=== PATIENT | male | born 1945 | race Caucasian/White ===

== ENCOUNTER → 2017-05-01 | Outpatient (CLI) | payer OTHER ==
[2017-05-01 14:48] LABS: HEMATOCRIT 45.2 % (42-52); MEAN CELL VOLUME 93.8 fL (80-100); MEAN CORPUSCULAR HEMOGLOBIN 31.3 pg (25-34); MEAN CORPUSCULAR HGB CONC 33.4 g/dl (32-36); MEAN PLATELET VOLUME 9.6 fL (7.4-10.4); PLATELET COUNT 223 K/uL (130-400); RED BLOOD COUNT 4.82 M/uL (4.7-6.1); WHITE BLOOD COUNT 12.42 K/uL (4.8-10.8)
[2017-05-01 15:13] LABS: ALT/SGPT 22 U/L (12-78); BLOOD UREA NITROGEN 26 mg/dl (7-18); BUN/CREATININE RATIO 18.3 (10-20); CALCIUM 10.9 mg/dl (8.5-10.1); CARBON DIOXIDE 28 mmol/L (21-32); CHLORIDE 109 mmol/L (98-107); GLUCOSE 146 mg/dl (70-99); POTASSIUM 4.2 mmol/L (3.5-5.1); SODIUM 141 mmol/L (136-145)
[2017-05-01 15:16] LABS: ALB/GLOB RATIO 1.3 (0.9-2); ALKALINE PHOSPHATASE 40 U/L (45-117); AST/SGOT 11 U/L (15-37)
== END | disposition home or self-care (01) ==
LOC: C.LAB 14:20
PROVIDERS: ATTEND Nurse Practitioner
DX: R42 Dizziness and giddiness (principal); I10 Essential (primary) hypertension; E21.3 Hyperparathyroidism, unspecified

== ENCOUNTER → 2017-10-20 | Outpatient (CLI) | payer OTHER, BC ==
--- NOTE | 2017-10-20 09:59 | DIAGNOSTIC IMAGING REPORT ---
R WRIST MIN 3 VIEWS ROUTINE CLINICAL HISTORY: PAIN IN R WRIST pain COMPARISON: None. DISCUSSION: The bones and joint spaces appear intact. There is no evidence of fracture, dislocation or bony disease. There is no evidence for soft tissue swelling. IMPRESSION: Negative study. The above report was generated using voice recognition software. It may contain grammatical, syntax or spelling errors. Electronically signed by: Fredy Bolanos M.D. 10/20/2017 9:57 AM Dictated Date/Time: 10/20/2017 9:57 AM
== END | disposition home or self-care (01) ==
LOC: C.RAD1850 09:49
PROVIDERS: ATTEND Student in an Organized Health Care Education/Training Program
DX: M25.531 Pain in right wrist (principal)

== ENCOUNTER → 2018-01-17 | Outpatient (CLI) | payer OTHER | END | disposition home or self-care (01) | LOC: C.MAMM 12:38 | PROVIDERS: ATTEND Family Medicine | DX: M85.80 Other specified disorders of bone density and structure, unspecified site (principal) ==

== ENCOUNTER 2020-06-06 05:26 | Inpatient (IN) ==
--- NOTE | 2020-05-20 13:25 | PAT Medication Instructions ---
Medication Instructions Date of Service May 20, 2020 Home Medications atorvastatin 20 mg tablet 20 mg PO QAM cholecalciferol (vitamin D3) 50 mcg (2,000 unit) capsule 4,000 units PO QAM lisinopril 40 mg tablet 40 mg PO QPM omega-3 fatty acids 1,000 mg capsule 1,000 mg PO BID tamsulosin 0.4 mg capsule 0.8 mg PO QPM amlodipine 5 mg tablet 5 mg PO QPM calcium 500 mg tablet 500 mg PO QAM metformin 500 mg tablet 1,000 mg PO BID glucosamine rnc-ohjqxmrazi-nwz 1 tab PO BID dutasteride 0.5 mg PO QPM STOP taking 2 weeks before surgery glucosamine vre-ythwckcymx-oyd 1 tab PO BID omega-3 fatty acids 1,000 mg capsule 1,000 mg PO BID DO NOT take the morning of surgery metformin 500 mg tablet 1,000 mg PO BID calcium 500 mg tablet 500 mg PO QAM cholecalciferol (vitamin D3) 50 mcg (2,000 unit) capsule 4,000 units PO QAM Take morning of surgery With a small sip of water, OTHERWISE NOTHING TO EAT OR DRINK AFTER MIDNIGHT: atorvastatin 20 mg tablet 20 mg PO QAM Take evening before surgery lisinopril 40 mg tablet 40 mg PO QPM tamsulosin 0.4 mg capsule 0.8 mg PO QPM amlodipine 5 mg tablet 5 mg PO QPM metformin 500 mg tablet 1,000 mg PO BID dutasteride 0.5 mg PO QPM Other Notes If you have any questions please call us at [phone] or [phone] or [phone] or [phone]
--- NOTE | 2020-05-22 09:38 | Anesthesiology Consultation ---
Date of Service May 22, 2020 Assessment & Plan (1) Encounter for pre-operative examination: Chart Review Chart Review: Pending: Refer to Additional Notes / Consult section (response from PCP re: any other EKGs for comparison and preop Covid testing ) and Patient seen in Pre Admission Testing Note wrote to PCP re: EKG and if any other EKGs available for comparison. Will await response - Check BSG AM DOS Per PAT appt 05/22/20, denies any recent travel. Covid testing scheduled 06/03/20. Educated on importance of self quarantining, social distancing and wearing mask in public both for the patient and household contacts. Teaching & Discussion Pre-Anesthesia Teaching/Discussion Notes: Instructed NPO after midnight before surgery,except medications with 15 cc of water. Medication instructions provided according to the [facility] guidelines. History Surgery Operation Date: 06/06/20 07:30 Proposed Procedures p Right Robotic Assisted Partial Nephrectomy - Wu Cantrell MD Height/Weight Height: 5 ft 8 in Weight: 75.75 kg Allergies Allergy/AdvReac Type Severity Reaction Status Date / Time No Known Drug Allergies Allergy Verified 05/15/20 13:51 Medications Home Medications Medication Instructions Recorded Confirmed Last Taken atorvastatin 20 mg tablet 20 mg PO QAM 12/11/19 05/15/20 Unknown cholecalciferol (vitamin D3) 50 4,000 units PO QAM cap 12/11/19 05/15/20 Unknown mcg (2,000 unit) capsule lisinopril 40 mg tablet 40 mg PO QPM 12/11/19 05/15/20 Unknown omega-3 fatty acids 1,000 mg 1,000 mg PO BID 12/11/19 05/15/20 Unknown capsule tamsulosin 0.4 mg capsule 0.8 mg PO QPM cap 12/11/19 05/15/20 Unknown amlodipine 5 mg tablet 5 mg PO QPM 12/27/19 05/15/20 Unknown calcium 500 mg tablet 500 mg PO QAM tab 12/27/19 05/15/20 Unknown metformin 500 mg tablet 1,000 mg PO BID tab 12/27/19 05/15/20 Unknown glucosamine kur-dpzcumonmv-bhr 1 tab PO BID 01/09/20 05/15/20 Unknown dutasteride 0.5 mg PO QPM 05/15/20 05/15/20 Unknown Past Medical History Medical History (Updated 05/22/20 @ 10:06 by Kirsten Ascencio PA-C) BPH with obstruction/lower urinary tract symptoms DM type 2 (diabetes mellitus, type 2) NIDDM- well controlled and stable Hearing deficit BL [place]- wears hearing aids bilaterally History of skin cancer removed - follows with derm routinely HTN (hypertension) Hyperlipemia Reducible left inguinal hernia Renal mass Exercise / Class Metabolic Activity II 4-5 Yardwork/Stairs/Walk up hill (one flight of stairs - no chest pain or SOB) Past Family History Family History Son Schizophrenia Sister Cancer Mother Heart disease Other No family history of adverse response to anesthesia Past Surgical History Surgical History History of colonoscopy History of prostate biopsy History of testicular mass excision History of tonsillectomy and adenoidectomy History of vasectomy Status post biopsy of skin Past Anesthesia History No Hx of Anesthesia Complications and No Family Hx of Anesthesia Complications History of PONV No Hx of PONV and No Hx of Motion Sickness Social History Smoking Status: Never smoker Do You Dip or Chew Tobacco: No Hx Alcohol Use: Yes Alcohol type: wine alcohol intake frequency: a few times a week Hx Substance Use: No substance use type: does not use Review of Systems Patient denies chest pain, shortness of breath, dyspnea on exertion, reflux, cough, wheezing, palpitations. No hx of seizures, stroke, [place], apnea/snoring. No hx of blood clots or blood transfusions Physical Exam Vital Signs VITALS BP 127/61 P 82 TEMP 97.8 SP02 96% RESP 16 Constitutional no acute distress ENMT Mouth: no TMJ clicking Thyromental Distance: > or= 3.5 Finger Breadths (3.5) Mallampati Class: I Missing molars. Caps and crowns to molars Neck + limited neck extension (mild ) Respiratory normal respiratory effort; no respiratory distress Auscultation: lungs clear to auscultation bilaterally; no wheezes Cardiovascular Rate/Rhythm: regular rate and regular rhythm Heart Sounds: no murmur Vessels: no carotid bruit Musculoskeletal Spine: no pain with cervical ROM Neurologic moves all extremities Psychiatric Orientation: alert Testing Laboratory Results 05/22/20 10:00 05/22/20 10:00 Hemoglobin A1c 6.0 % (4.5-5.6) H 05/22/20 10:00 Urine Color Yellow 05/22/20 10:00 Urine Appearance Clear (Clear) 05/22/20 10:00 Urine pH 5.0 (4.5-7.5) 05/22/20 10:00 Ur Specific Coello 1.019 (1.000-1.030) 05/22/20 10:00 Urine Protein Trace (Negative) H 05/22/20 10:00 Urine Glucose (UA) Negative (Negative) 05/22/20 10:00 Urine Ketones Negative (Negative) 05/22/20 10:00 Urine Nitrite Negative (Negative) 05/22/20 10:00 Ur Leukocyte Esterase Negative (Negative) 05/22/20 10:00 Urine WBC (Auto) 1-5 /hpf (0-5) 05/22/20 10:00 Urine RBC (Auto) 0-4 /hpf (0-4) 05/22/20 10:00 U Hyaline Cast (Auto) 0 /lpf (0-5) 05/22/20 10:00 U Epithel Cells (Auto) 0-5 /lpf (0-5) 05/22/20 10:00 Urine Bacteria (Auto) Negative (Negative) 05/22/20 10:00 Blood Type A Positive 05/22/20 10:00 Antibody Screen NEGATIVE 05/22/20 10:00 Electrocardiogram Date: 05/22/20 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 Poor R wave progression, consider anterior [place] vs lead placement vs LVH Chest X-Ray Date: 05/22/20 Findings: + NAD Ill-defined opacity of the right paratracheal distribution is likely secondary to summation density or vascular pedicle. Mild blunting of the posterior costophrenic angles.
--- NOTE | 2020-05-22 10:22 | XRay Report ---
XR chest Pre-admission PA/Lat HISTORY: 74 years-old Male pat preoperative exam COMPARISON: None TECHNIQUE: PA and lateral views of the chest FINDINGS: Cardiac silhouette is normal. Ill-defined opacity of the right paratracheal distribution is likely se condary to summation density or vascular pedicle. No pneumothorax, pleural effusion, airspace consoli dation or overt pulmonary edema. Mild blunting of the posterior costophrenic angles. Degenerative zhane nges of the shoulders and spine. IMPRESSION: No acute process. ACT 112: Negative or not required by law. The above report was generated using voice recognition software. It may contain grammatical, syntax o r spelling errors. Electronically signed by: Filemon Yi M.D. 05/22/2020 10:21 AM
[2020-05-22 10:53] LABS: Basophils # (auto) 0.03 K/uL (0-0.2); Basophils % (auto) 0.3 %; Eosinophils % (auto) 3.4 %; Hematocrit (blood only) 41.1 % (42-52); Hemoglobin 13.8 g/dL (14.0-18.0); Immature Granulocytes # (auto) 0.02 K/uL (0.00-0.02); Immature Granulocytes % (auto) 0.2 %; Lymphocytes # (auto) 1.47 K/uL (1.2-3.4); Lymphocytes % (auto) 16.5 %; Mean Corpuscular Hemoglobin 31.8 pg (25-34); Mean Corpuscular Hgb Conc 33.6 g/dL (32-36); Mean Corpuscular Volume 94.7 fL (80-100); Mean Platelet Volume 9.9 fL (7.4-10.4); Monocytes # (auto) 0.82 K/uL (0.11-0.59); Monocytes % (auto) 9.2 %; Neutrophils # (auto) 6.29 K/uL (1.4-6.5); Neutrophils % (auto) 70.4 %; Platelet Count 238 K/uL (130-400); RDW Coefficient of Variation 12.8 % (11.5-14.5); RDW Standard Deviation 44.4 fL (36.4-46.3); Red Blood Count 4.34 M/uL (4.7-6.1); White Blood Count 8.93 K/uL (4.8-10.8)
[2020-05-22 10:59] LABS: BUN Creatinine Ratio 18.1 (10-20); Calcium 10.3 mg/dl (8.5-10.1); Creatinine Clr Calc Pharmacy 45.7 ml/min; Est GFR (African American) 59.1; Potassium 4.6 mmol/L (3.5-5.1)
[2020-05-22 11:13] LABS: Appearance Urine Clear (Clear); Bacteria Urine Automated Negative (Negative); Bilirubin Urine Negative (Negative); Blood Urine Negative (Negative); Cast Urine Automated 0 /lpf (0-5); Color Urine Yellow; Epithelial Cell Urine Auto 0-5 /lpf (0-5); Glucose Urine UA Negative (Negative); Ketones Urine Negative (Negative); Leukocyte Esterase Urine Negative (Negative); Nitrite Urine Negative (Negative); Protein Urine Trace (Negative); RBC Urine Automated 0-4 /hpf (0-4); Specific Gravity Urine 1.019 (1.000-1.030); Urobilinogen Urine Negative (Negative)
--- NOTE | 2020-05-22 11:56 | Electrocardiogram Report ---
Test Reason : Blood Pressure : / mmHG Vent. Rate : 080 BPM Atrial Rate : 080 BPM P-R Int : 212 ms QRS Dur : 106 ms QT Int : 364 ms P-R-T Axes : 078 -81 077 degrees QTc Int : 419 ms Sinus rhythm with 1st degree A-V block Left anterior fascicular block Poor R wave progression, consider anterior CA vs. lead placement vs. LVH Abnormal ECG No previous ECGs available Confirmed by Jan Young ([id number]) on 05/22/2020 11:56:25 AM Referred By: Wu Cantrell Confirmed By:Andrey Young
[2020-05-22 12:56] LABS: Estimated Average Glucose 126 mg/dl
[2020-06-06] MEDS ORDERED: CEFAZOLIN 2000MG 2,000 MG/15 ML SYR IV SCH (06:00)
[2020-06-06] MEDS ORDERED: LR 15ML/HR IV SCH (06:00)
[2020-06-06] MEDS ORDERED: BUPIVACAINE 0.5 % 5 MG/1 ML MPF 30ML VIAL ONE (07:01)
[2020-06-06] MEDS ORDERED: ATROPINE SULFATE 0.1 MG/ML 10ML SYR IV PRN (07:05)
[2020-06-06] MEDS ORDERED: PROMETHAZINE HCL 12.5 MG in SODIUM CHLORIDE 0.9% 50 ML IV PRN (07:05)
[2020-06-06] MEDS ORDERED: ONDANSETRON INJ 2 MG/ML 2 ML VIAL IV PRN ×2 (07:05→13:57)
[2020-06-06] MEDS ORDERED: ePHEDrine sulfate 50 MG/ML AMP IV PRN (07:05)
[2020-06-06] MEDS ORDERED: ROCURONIUM BROMIDE 10 MG/ML 5 ML VIAL IV ONE ×6 (07:09→09:23)
[2020-06-06] MEDS ORDERED: LIDOCAINE HCL 2% 2 ML VIAL/AMP(20MG/ML) INFIL ONE (07:09)
[2020-06-06] MEDS ORDERED: ONDANSETRON INJ 2 MG/ML 2 ML VIAL ONE (07:09)
[2020-06-06] MEDS ORDERED: PROPOFOL IV EMULSION 10 MG/ML 20 ML VIAL IV ONE (07:09)
[2020-06-06] MEDS ORDERED: MIDAZOLAM HCL 1 MG/ML 2ML VIAL ONE (07:09)
[2020-06-06] MEDS ORDERED: fentaNYL citrate 100 MCG/2 ML VIAL ONE (07:09)
--- NOTE | 2020-06-06 07:21 | History & Physical Bridge Note ---
Date of Service June 06, 2020 History & Physical Bridge Note I have examined the patient, reviewed the History & Physical and in the interval since the performance of the History & Physical I have noted the following changes of clinical significance: no changes noted
[2020-06-06] MEDS ORDERED: VASOPRESSIN 20 UNIT/ML VIAL ONE (08:37)
[2020-06-06] MEDS ORDERED: MANNITOL 25% 12.5 GM/50 ML VIAL IV ONE ×2 (09:15→10:34)
[2020-06-06] MEDS ORDERED: TISSEEL FIBRIN SEALANT 10ML TOP ONE (10:07)
[2020-06-06] MEDS ORDERED: FLOSEAL HEMOSTATIC MATRIX 10ML TOP ONE (10:30)
[2020-06-06] MEDS ORDERED: ePHEDrine sulfate 50 MG/ML SYR ONE (11:09)
[2020-06-06] MEDS ORDERED: PHENYLEPHRINE 100MCG/ML 5ML SYR ONE (11:09)
[2020-06-06 11:49] LABS: Basophils # (auto) 0.02 K/uL (0-0.2); Basophils % (auto) 0.2 %; Eosinophils # (auto) 0.02 K/uL (0-0.5); Eosinophils % (auto) 0.2 %; Hematocrit (blood only) 36.2 % (42-52); Hemoglobin 12.2 g/dL (14.0-18.0); Immature Granulocytes # (auto) 0.03 K/uL (0.00-0.02); Immature Granulocytes % (auto) 0.2 %; Lymphocytes # (auto) 1.22 K/uL (1.2-3.4); Lymphocytes % (auto) 9.8 %; Mean Corpuscular Hemoglobin 31.7 pg (25-34); Mean Corpuscular Hgb Conc 33.7 g/dL (32-36); Mean Platelet Volume 9.5 fL (7.4-10.4); Monocytes # (auto) 0.87 K/uL (0.11-0.59); Neutrophils # (auto) 10.23 K/uL (1.4-6.5); Neutrophils % (auto) 82.6 %; Platelet Count 181 K/uL (130-400); RDW Coefficient of Variation 12.6 % (11.5-14.5); RDW Standard Deviation 42.9 fL (36.4-46.3); Red Blood Count 3.85 M/uL (4.7-6.1); White Blood Count 12.39 K/uL (4.8-10.8)
[2020-06-06] MEDS: fentaNYL citrate 100 MCG/2 ML VIAL IV PRN ×2 (11:49→11:57)
--- NOTE | 2020-06-06 11:56 | Operative Report ---
PG Post Operative Report Pre & Post Diagnosis Operation Date: 06/06/20 07:30 Pre-Op Diagnosis: Right Renal Mass Post-Op Diagnosis: Right Renal Mass I identified the patient and participated in the time-out.: Yes Procedure Operation Date: 06/06/20 07:30 Actual Procedures p Right Robotic Assisted Partial Nephrectomy(Right) - Wu Cantrell MD Surgeon Jan Cantrell MD Travel Registered Nurse Nicu Jeremy Noe; Faye Dela Cruz; Janki Layne Estimated Blood Loss 50 Findings Consistent with Post-Op Diagnosis Specimens Right renal masses x2 Description of Procedure Patient was identified in the preoperative holding area, appropriate informed consents were reviewed and completed and he was transported to the operating suite. Upon arrival received appropriate preoperative antibiotics in form of Ancef. He was placed in the left side down right side up lateral decubitus position and padded and braced in standard fashion. Following sterile prep and drape a varies needle was passed into the right upper quadrant and the abdomen insufflated to 15 mmHg. A 12 mm robotic camera port was placed approximately 5 cm lateral to the rectus border just above the umbilicus. Subsequently placed robotic port just under the costal margin and another inferior and lateral to the robotic port by 8 cm. 2- 12 mm fast food sales assistant ports were placed along the lateral border of the rectus. After docking the robot I began by mobilizing the colon. Beginning inferior to the kidney I incised the white line of Toldt and continued to dissect lateral to the colon until reaching the transverse colon. This reflected it medially. I was able to identify the duodenum just posterior to the colon and overlying the renal hilar structures. I kocherized the duodenum moving it medially. I then identified the inferior vena cava inferior to the kidney. The gonadal vein was seen penetrating the cava and I dissected lateral to this to define the lateral edge of the cava. I encountered the renal artery and vein as I dissected cephalad along the course of the cava. I circumferentially dissected around both of these structures to expose them. I then turned my attention to the kidney and in the midportion of the kidney I transected through Gerota's fascia until I could identify a normal renal parenchyma. I carried this dissection circumferentially identifying a cyst on the anterior surface. The cyst is just superior to the anticipated area of the tumor and I use it as a landmark to guide my further dissection. I continued to dissect and identified healthy perimeter of renal parenchyma around the periphery of the tumor. I used an laparoscopic ultrasound to confirm my findings and identify the absolute borders of the tumor both deep and superficial. 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 More care was taken to avoid penetration into the solid mass in the AML. That said, I planned a dissection that would excise both masses simultaneously as they share a common border. I then preplaced 2 sutures into the abdomen and instilled 12.5 g of mannitol. A short bulldog clamp was placed across the renal artery and the time was marked. A second bulldog clamp was placed across the renal vein and I began transecting the kidney and my previously marked plane. I was able to safely dissect the tumors away from the healthy renal parenchyma without encroaching upon the tumor or violating its borders. After this was entirely freed, I began by reconstructing the kidney with a running V lock suture through the deepest portion of my resection. This closed numerous vessels and likely some collecting system. I secured this suture in place with a Weck clip placed on the outside of the renal capsule. Utilizing a sliding clip technique I then closed the external portion of the renal parenchyma. Approximately 4 passes across the defect were required to close the defect entirely. I then unclamped the kidney, first removing the venous clamp and then the arterial clamp. Warm ischemic time was 12 minutes. Hemostasis was excellent. FloSeal was placed across the defect followed by layer of Tisseel. Gerota's fascia was reconstructed utilizing a running V lock stitch. The tumor was collected into an Endo Catch bag. The robot was undocked after placing a drain through the left lateral robotic port. I elected to withdraw the specimen through the camera port after expanding into approximately 3 cm in length. The tumor was withdrawn without difficulty and the fascia was closed in 2 layers. All wounds were infiltrated with half percent Marcaine and closed with 4-0 Monocryl. Drain was sutured in place with a 3-0 silk. Dermabond was placed over the incisions and the case concluded. There were no complications Jeremy Noe assisted throughout the burleson portions of the case and Faye Dela Cruz and Janki Layne assisted from incision to closure. I attest to the content of the Intraoperative Record and any orders documented therein. Any exceptions are noted below.
[2020-06-06] MEDS: HYDROmorphone INJ 2 MG/ML SYR/VIAL IV PRN ×4 (12:05→12:21)
[2020-06-06 12:12] LABS: BUN Creatinine Ratio 14.8 (10-20); Calcium 8.9 mg/dl (8.5-10.1); Creatinine Clr Calc Pharmacy 41.4 ml/min; Est GFR (African American) 52.5; Est GFR (Non-African American) 45.3; Potassium 4.6 mmol/L (3.5-5.1)
--- NOTE | 2020-06-06 12:26 | Anesthesiology Progress Note ---
Date of Service June 06, 2020 Anesthesia Post Procedure Vital Signs Vital Signs: Temp Pulse Pulse Resp BP BP Pulse Ox 06/06/20 12:15 75 12 118/56 L 97 06/06/20 12:05 64 12 117/53 L 94 06/06/20 11:55 71 12 122/61 95 06/06/20 11:45 75 15 118/56 L 95 06/06/20 11:35 81 18 115/65 99 06/06/20 11:29 36.3 C L 89 16 132/60 98 06/06/20 06:05 36.5 C 107 H 18 155/77 H 97 Pain Intensity Abdomen: Pain Intensity: 5 Transfer of Care Handoff Completed per policy Notes Mental Status: alert / awake / arousable and participated in evaluation Patient Amnestic to Procedure: Yes Nausea / Vomiting: adequately controlled Pain: adequately controlled Airway Patency, RR, SpO2: stable & adequate BP & HR: stable & adequate Hydration State: stable & adequate Anesthetic Complications: no major complications apparent and Pt Satisfied with anesthetic care
[2020-06-06] MEDS ORDERED: MoRPHine SULFATE 4 MG/ML 1 ML CARP\\VIAL IV PRN (13:57)
[2020-06-06] MEDS ORDERED: MoRPHine SULFATE 10 MG/ML CARP/VIAL IV PRN (13:57)
[2020-06-06] MEDS ORDERED: PHARMACY GLYCEMIC MGMT CONSULT SCH (14:41)
[2020-06-06] MEDS: ACETAMINOPHEN 1,000 MG/100 ML VIAL IV SCH ×2 (14:48→21:49)
--- NOTE | 2020-06-06 15:00 | Pharmacy Report ---
Pharmacy Glycemic Short Note 2 - Date of Service June 06, 2020 - Glycemic Short BSG Results (Last 24 hours): 06/06/20 06/06/20 06/06/20 05:54 11:32 11:40 Glucose 192 H POC Glucose 125 H 200 H OUTPATIENT ANTIDIABETIC REGIMEN: * Metformin 1gm PO BID * A1c = 6% 05/22/20 ASSESSMENT: * Type 2 diabetic w/ h/o renal mass admitted for robot assisted partial R nephrectomy * Pre-op BSG 125, patient unlikely to be insulin resistant due to underlying renal dz and glycemic targets obtained w/ metformin monotherapy * It does not appear patient received steroids kevin-op. Mannitol was pulled from Omni - perhaps this could interfere with Accucheck result leading to post-op BSG 200 - of course this elevation may also be due to surgical stressors * Will initiate wt based basal/bolus regimen using mild-moderate stress level PLAN FOR INPATIENT GLYCEMIC CONTROL: * Hold outpatient oral diabetes medications (metformin) * Basal insulin * Lantus SQ BID per scale * 0 units if BSG less than 110 * 7 units if BSG 110-180 * 13 units if BSG greater than 180 * Bolus insulin * NovoLog per scale ACHS or Q6hrs while NPO * Goal Range: Low 110 mg/dL - High 140 mg/dL * Correction Factor: 30 mg/dL/unit * Nutritional / Prandial insulin per carb ratio of 1 unit per 10 grams CHO consumed PLAN FOR DISCHARGE: * may resume home metformin regimen if no contraindications present at the time of discharge.
[2020-06-06] MEDS ORDERED: GLUCOSE 40% GEL 15 GM TUBE PO PRN (15:15)
[2020-06-06] MEDS ORDERED: CARBOHYDRATES FOR HYPOGLYCEMIA PO PRN (15:15)
[2020-06-06] MEDS ORDERED: DEXTROSE 50% 50 ML SYRINGE IV PRN (15:15)
[2020-06-06] MEDS ORDERED: GLUCOSE 10 TABS/TUBE PO PRN (15:15)
[2020-06-06] MEDS ORDERED: GLUCAGON FOR INJ 1 MG VIAL IM PRN (15:15)
[2020-06-06] MEDS: DUTASTERIDE: ORDER AWAITING ACTION SCH (16:04)
[2020-06-06] MEDS: CEFAZOLIN 2000MG 2,000 MG/15 ML SYR IV SCH ×2 (16:10→23:27)
[2020-06-06] MEDS: INSULIN ASPART 100 UNITS/ML 3 ML PEN SC SCH ×2 (19:07→21:45)
[2020-06-06] MEDS: LACTATED RINGER'S 1,000 ML IV SCH (19:17)
[2020-06-06] MEDS ORDERED: METHYLSULFONYLMETHANE PO SCH (21:00)
[2020-06-06] MEDS ORDERED: CHONDROITIN PO SCH (21:00)
[2020-06-06] MEDS ORDERED: GLUCOSAMINE PO SCH (21:00)
[2020-06-06] MEDS: OMEGA-3 (PURIFIED FISH OIL) 1 GM CAP PO SCH (21:48)
[2020-06-06] MEDS: AMLODIPINE BESYLATE 5 MG TAB PO SCH (21:48)
[2020-06-06] MEDS: TAMSULOSIN HCL 0.4 MG CAP PO SCH (21:48)
[2020-06-06] MEDS: lisinopriL 40 MG TAB PO SCH (21:49)
[2020-06-06] MEDS: INSULIN GLARGINE SOLOSTAR 100 UNITS/ML 3 ML PEN SC SCH (22:18)
[2020-06-06] MEDS: OXYCODONE HCL IR 5 MG TAB (IMMEDIATE RELEASE) PO PRN (23:29)
[2020-06-07] MEDS: DUTASTERIDE: ORDER AWAITING ACTION SCH ×4 (00:25→23:46)
[2020-06-07] MEDS: OXYCODONE HCL IR 5 MG TAB (IMMEDIATE RELEASE) PO PRN ×4 (02:18→21:41)
[2020-06-07] MEDS ORDERED: MoRPHine SULFATE 2 MG/ML CARP IV PRN (03:04)
[2020-06-07] MEDS: LACTATED RINGER'S 1,000 ML IV SCH ×3 (05:43→21:36)
[2020-06-07] MEDS: ACETAMINOPHEN 1,000 MG/100 ML VIAL IV SCH ×3 (05:43→21:38)
[2020-06-07] MEDS: MoRPHine SULFATE 2 MG/ML CARP IV PRN ×2 (05:44→11:16)
[2020-06-07 06:19] LABS: Basophils # (auto) 0.01 K/uL (0-0.2); Eosinophils # (auto) 0.01 K/uL (0-0.5); Hematocrit (blood only) 35.3 % (42-52); Hemoglobin 11.7 g/dL (14.0-18.0); Immature Granulocytes # (auto) 0.06 K/uL (0.00-0.02); Immature Granulocytes % (auto) 0.3 %; Lymphocytes % (auto) 7.9 %; Mean Corpuscular Hemoglobin 31.5 pg (25-34); Mean Corpuscular Hgb Conc 33.1 g/dL (32-36); Mean Corpuscular Volume 94.9 fL (80-100); Mean Platelet Volume 9.8 fL (7.4-10.4); Monocytes # (auto) 2.62 K/uL (0.11-0.59); Monocytes % (auto) 12.1 %; Neutrophils # (auto) 17.23 K/uL (1.4-6.5); Neutrophils % (auto) 79.7 %; Platelet Count 212 K/uL (130-400); RDW Coefficient of Variation 12.7 % (11.5-14.5); Red Blood Count 3.72 M/uL (4.7-6.1); White Blood Count 21.63 K/uL (4.8-10.8)
[2020-06-07 06:43] LABS: BUN Creatinine Ratio 13.7 (10-20); Calcium 9.3 mg/dl (8.5-10.1); Creatinine Clr Calc Pharmacy 32.8 ml/min; Est GFR (African American) 39.6; Est GFR (Non-African American) 34.2; Potassium 4.3 mmol/L (3.5-5.1)
--- NOTE | 2020-06-07 08:31 | Anesthesiology Progress Note ---
Date of Service June 07, 2020 Anesthesia Post Procedure Vital Signs Vital Signs: Temp Pulse Pulse Resp BP BP Pulse Ox 06/07/20 07:16 36.8 C 82 16 118/55 L 92 06/07/20 03:52 36.7 C 90 18 127/64 96 06/06/20 23:46 36.5 C 87 17 140/67 95 06/06/20 19:36 36.4 C L 86 20 132/70 97 06/06/20 16:16 36.3 C L 73 14 106/61 96 06/06/20 15:16 36.3 C L 80 14 102/54 L 97 06/06/20 14:07 84 16 97/59 L 96 06/06/20 13:33 36.4 C L 86 19 107/57 L 94 06/06/20 13:05 36.4 C L 94 H 16 127/67 96 06/06/20 12:35 36.4 C L 74 13 112/51 L 93 06/06/20 12:25 83 17 123/56 L 93 06/06/20 12:15 75 12 118/56 L 97 06/06/20 12:05 64 12 117/53 L 94 06/06/20 11:55 71 12 122/61 95 06/06/20 11:45 75 15 118/56 L 95 06/06/20 11:35 81 18 115/65 99 06/06/20 11:29 36.3 C L 89 16 132/60 98 Pain Intensity Abdomen: Pain Intensity: 5 Notes Mental Status: alert / awake / arousable Patient Amnestic to Procedure: Yes Nausea / Vomiting: adequately controlled Pain: adequately controlled Airway Patency, RR, SpO2: stable & adequate BP & HR: stable & adequate Hydration State: stable & adequate Anesthetic Complications: no major complications apparent and Pt Satisfied with anesthetic care
[2020-06-07] MEDS: CHOLECALCIFEROL 1,000 UNITS 25 MCG TAB PO SCH (08:58)
[2020-06-07] MEDS: CALCIUM CARBONATE 1250MG TAB PO SCH (08:58)
[2020-06-07] MEDS: ATORVASTATIN 20 MG TAB PO SCH (08:58)
[2020-06-07] MEDS: INSULIN ASPART 100 UNITS/ML 3 ML PEN SC SCH ×4 (08:59→21:37)
[2020-06-07] MEDS: INSULIN GLARGINE SOLOSTAR 100 UNITS/ML 3 ML PEN SC SCH ×2 (08:59→21:36)
[2020-06-07] MEDS: OMEGA-3 (PURIFIED FISH OIL) 1 GM CAP PO SCH ×2 (08:59→21:37)
--- NOTE | 2020-06-07 09:00 | Urology Progress Note ---
Date of Service June 07, 2020 Assessment & Plan (1) Renal mass: 74yo M who is POD #1 s/p Right Robotic Assisted Partial Nephrectomy -Clinically progressing as expected -Advance diet as tolerated -Encourage ambulation -Campos removed this am -Continue pain control -Continue BK -Will reassess this afternoon, likely discharge home tomorrow to allow continued monitoring of labs Admission and Anticipated Discharge Date Admission Date: June 06, 2020 Supervising Physician Co-Signing Physician Notes Agree with above - labs and vitals appropriate - has not voided since campos removal, straight cath x1 now - BK out - encourage ambulation - repeat labs in AM Subjective 74yo M who is POD#1 s/p Right Robotic Assisted Partial Nephrectomy Patient is oob sitting in chair Complaints of right abdominal pain as expected, most noticeable when using incentive spirometer Has been receiving both IV and PO pain medication Tolerating PO diet without nausea or vomiting Denies fevers or chills Campos catheter removed this morning BK output 20 ml overnight Labs reviewed: WBC-21.63 HgB- 11.7 Cr-1.88 Review of Systems Review of Systems: All systems reviewed & are unremarkable except as noted in HPI & below Physical Exam Constitutional: well developed and well nourished; no acute distress Respiratory: normal respiratory effort and able to speak in complete sentences Gastrointestinal (Abdomen): BK drain with bloody drainage and dressing intact to right abdomen. Dermabond x3 intact Skin: no rashes, warm and dry Neurologic: moves all extremities and awake; not confused Psychiatric: Orientation: alert, oriented x 3 and cooperative Results & Data ([facility]) Vital Signs (Past 12 Hours) Vital Signs Temp Pulse Resp BP Pulse Ox 06/07/20 07:16 36.8 C 82 16 118/55 L 92 06/07/20 03:52 36.7 C 90 18 127/64 96 06/06/20 23:46 36.5 C 87 17 140/67 95 PG Care Time/CCT Total # of Minutes Spent Total Time Spent with Patient: Total time spent is greater than 50% in coordination of care (as documented) at patient's floor/unit and/or counseling patient: Coding Level of Care Code 33976 Subseq Hosp Care Lvl 2 Diagnoses Renal mass N28.89
--- NOTE | 2020-06-07 09:57 | Pharmacy Report ---
Pharmacy Glycemic Short Note 2 - Date of Service June 07, 2020 - Glycemic Short BSG Results (Last 24 hours): 06/06/20 06/06/20 06/06/20 11:32 11:40 17:38 Glucose 192 H POC Glucose 200 H 176 H 06/06/20 06/07/20 06/07/20 21:33 05:21 08:38 Glucose 108 H POC Glucose 195 H 119 H OUTPATIENT ANTIDIABETIC REGIMEN: * Metformin 1gm PO BID * A1c = 6% 05/22/20 ASSESSMENT: 06/07: * POD # 1 s/p robot assisted partial R nephrectomy * Tio received 19 units of insulin yesterday; 13 units of basal and 6 units of bolus * Fasting BSG of 119 mg/dL is at goal. I will decreased basal insulin moving forward as the stress from surgery dissipates. * Post prandial BSGs were above goal yesterday. I anticipate improvement today. * I will hold off on resuming metformin at this time per Scr was elevated this morning (1.88 mg/dL). 06/06: * Type 2 diabetic w/ h/o renal mass admitted for robot assisted partial R nephrectomy * Pre-op BSG 125, patient unlikely to be insulin resistant due to underlying renal dz and glycemic targets obtained w/ metformin monotherapy * It does not appear patient received steroids kevin-op. Mannitol was pulled from Omni - perhaps this could interfere with Accucheck result leading to post-op BSG 200 - of course this elevation may also be due to surgical stressors * Will initiate wt based basal/bolus regimen using mild-moderate stress level PLAN FOR INPATIENT GLYCEMIC CONTROL: * Hold outpatient oral diabetes medications (metformin) * Basal insulin * Lantus SQ BID per scale * 0 units if BSG less than 140 * 7 units if BSG 140 mg/dL or more * Bolus insulin * NovoLog per scale ACHS or Q6hrs while NPO * Goal Range: Low 110 mg/dL - High 140 mg/dL * Correction Factor: 30 mg/dL/unit * Nutritional / Prandial insulin per carb ratio of 1 unit per 10 grams CHO consumed PLAN FOR DISCHARGE: * may resume home metformin regimen if no contraindications present at the time of discharge.
[2020-06-07] MEDS: TAMSULOSIN HCL 0.4 MG CAP PO SCH (21:36)
[2020-06-07] MEDS: AMLODIPINE BESYLATE 5 MG TAB PO SCH (21:37)
[2020-06-07] MEDS: lisinopriL 40 MG TAB PO SCH (21:38)
[2020-06-08] MEDS: ACETAMINOPHEN 1,000 MG/100 ML VIAL IV SCH (05:54)
[2020-06-08] MEDS: LACTATED RINGER'S 1,000 ML IV SCH (05:55)
[2020-06-08 05:59] LABS: Basophils # (auto) 0.02 K/uL (0-0.2); Basophils % (auto) 0.1 %; Eosinophils # (auto) 0.02 K/uL (0-0.5); Eosinophils % (auto) 0.1 %; Hematocrit (blood only) 35.7 % (42-52); Hemoglobin 11.9 g/dL (14.0-18.0); Immature Granulocytes % (auto) 0.4 %; Lymphocytes # (auto) 2.17 K/uL (1.2-3.4); Lymphocytes % (auto) 9.6 %; Mean Corpuscular Hemoglobin 32.7 pg (25-34); Mean Corpuscular Hgb Conc 33.3 g/dL (32-36); Mean Corpuscular Volume 98.1 fL (80-100); Mean Platelet Volume 9.8 fL (7.4-10.4); Neutrophils # (auto) 17.48 K/uL (1.4-6.5); Neutrophils % (auto) 77.8 %; Platelet Count 181 K/uL (130-400); RDW Coefficient of Variation 13.1 % (11.5-14.5); RDW Standard Deviation 47.2 fL (36.4-46.3); Red Blood Count 3.64 M/uL (4.7-6.1); White Blood Count 22.49 K/uL (4.8-10.8)
[2020-06-08 06:26] LABS: BUN Creatinine Ratio 15.7 (10-20); Calcium 9.9 mg/dl (8.5-10.1); Creatinine Clr Calc Pharmacy 35.3 ml/min; Est GFR (African American) 43.2; Est GFR (Non-African American) 37.3; Potassium 4.4 mmol/L (3.5-5.1)
[2020-06-08] MEDS: DUTASTERIDE: ORDER AWAITING ACTION SCH (07:22)
[2020-06-08] MEDS: CALCIUM CARBONATE 1250MG TAB PO SCH (07:33)
[2020-06-08] MEDS: ATORVASTATIN 20 MG TAB PO SCH (07:34)
[2020-06-08] MEDS: CHOLECALCIFEROL 1,000 UNITS 25 MCG TAB PO SCH (07:34)
[2020-06-08] MEDS: OMEGA-3 (PURIFIED FISH OIL) 1 GM CAP PO SCH (07:34)
[2020-06-08] MEDS: INSULIN ASPART 100 UNITS/ML 3 ML PEN SC SCH (08:51)
[2020-06-08] MEDS: INSULIN GLARGINE SOLOSTAR 100 UNITS/ML 3 ML PEN SC SCH (08:51)
--- NOTE | 2020-06-08 19:25 | Discharge Summary ---
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 Monteiro underwent a robotic assisted laparoscopic right partial nephrectomy The details of the surgery are as dictated previously in our operative report In summary he tolerated the procedure very well He progressed appropriately on postoperative day 1. He was ambulatory He was still experiencing moderate postoperative pain His Ingram catheter was removed but and he did require straight catheterization x1 He began to spontaneously void overnight into postoperative day 2 On postoperative day 2 he had a substantial improvement in his pain and felt that he was much more mobile He was requesting to go home and was subsequently discharged in stable condition after removal of his drain Of note, he had an expected rise in creatinine after this renal surgery, it peaked on postoperative day #1 and started to return towards normal on postoperative day #2 He did have an expected leukocytosis which I presume to be inflammatory Total Time Total Time Spent Total Time Spent (In Minutes): 25 Total Time Includes: Examination of the Patient, Discharge Planning and Medication Reconciliation Discharge Plan Discharge Items Patient Disposition: Home - Self-Care Reason For Visit: Renal Mass Discharge Diagnosis: Renal Mass Activity: Per Instructions section Lifting: No more than 25 pounds Bathing Comment: ok to shower Sexual Activity: Wait until after follow-up appointment Exercise/Sports: Gradually increase as tolerated Exercise Comment: avoid overly strenuous activity, but walking/stairs/etc are ok Driving/Machine Use: do not drive while on pain meds Non-emergency contact: Surgeon and Urologist Call non-emergency contact if: your pain is not controlled, you have a fever, your temperature is above 101, your wound has increased redness and your wound has increased drainage Follow-up/Referrals: Wu Cantrell MD [Physician] - 06/17/20 10:10 am Ralph Figueroa [Primary Care Provider] - Diet: Regular and Carb Consistent or DM2 Addtl Attending Provider Instructions: Please take all medications as prescribed and keep all follow-ups as scheduled. Please call our office at [phone] with any questions, concerns or need to reschedule appointments for any reason. We are happy to assist you. Recovering at home: We recommend having someone with you for the first few days after surgery to help care for you. It is okay to shower tomorrow. Please avoid swimming, bathing or using hot tub until incisions are well healed. Avoid driving until you are not requiring pain medication any further. Walk at least a few times a day. Increase your distance, as you feel able. Stairs in your home are okay. Please avoid strenuous or sexual activity until your follow-up. We recommend using stool softener (i.e. Colace) to prevent constipation and straining, especially the first two weeks post operatively. Call [facility] at [phone] if you experience: Chest pain or trouble breathing (call [phone] or go to the hospital). Fever of 101F or higher Symptoms of infection at incision site, including redness or swelling, warmth, or bad-smelling drainage If you have catheter, and you notice: o Bloody urine or drainage that is dark red or has large clots (Please remember a small amount of blood is normal) o No drainage from the catheter for more than 6 hours o The catheter comes out of your bladder Pain that is not controlled with medicines Pending Studies at Discharge: Yes (Pathology) Studies:: Pathology Stand-Alone Forms: My [facility] Medications and DC Order Prescriptions: New docusate sodium [Colace] 100 mg capsule 100 mg PO BID Qty: 60 RF: 0 oxycodone-acetaminophen [Percocet] 5-325 mg tablet 1 tab PO Q8H PRN (Reason: pain) Qty: 14 RF: 0 Continued atorvastatin 20 mg tablet 20 mg PO QAM RF: 0 lisinopril 40 mg tablet 40 mg PO QPM RF: 0 tamsulosin 0.4 mg capsule 0.8 mg PO QPM RF: 0 omega-3 fatty acids [Fish Oil Concentrate] 1,000 mg capsule 1,000 mg PO BID RF: 0 metformin 500 mg tablet 1,000 mg PO BID RF: 0 glucosamine [id number] 1 tab PO BID RF: 0 cholecalciferol (vitamin D3) 50 mcg (2,000 unit) capsule 2,000 unit PO QAM RF: 0 amlodipine 5 mg tablet 5 mg PO QPM RF: 0 calcium 500 mg tablet 500 mg PO QAM RF: 0 dutasteride 0.5 mg capsule 0.5 mg PO QPM RF: 0 Discharge Orders: Discharge Order (Routine); Ordered 06/08/20 Ordered By: Wu Baig/Other Patient Handouts: Managing Type 2 Diabetes Admission Data Admit Date/Time: 06/06/20 11:26 Attending Provider: Wu Cantrell Admit Provider: Wu Cantrell Primary Care Provider: Ralph Figueroa Other Interventions: Discharge Summary Assessment (RN) Last Done: 06/08/20 09:32 Coding Level of Care Code D/C Day Management <30 mins Diagnoses Renal mass N28.89 Angiomyolipoma D17.9
== END 2020-06-08 10:31 | disposition home or self-care (01) | DRG 658 ==
LOC: ASU 05:26 → 3N 11:26

== ENCOUNTER 2020-06-29 14:47 | Inpatient (IN) ==
--- NOTE | 2020-06-29 16:10 | Emergency Department Note ---
History of Present Illness General Chief complaint: Referred by Doctor Stated complaint: NO ENERGY OR APPETITE, REFERRED BY DOCTOR Time Seen by Provider: 06/29/20 15:49 History of Present Illness Provider complaint: Fever/fatigue Onset (ago): week(s) 1 Maximum Pain Intensity: 0 Current Pain Intensity: 0 Associated symptoms: + fever/chills (T-max 99) and + weakness; no confusion, no chest pain, no cough, no headaches, no nausea/vomiting, no shortness of breath and no syncope 74-year-old male presents emergency department for fever and fatigue. Patient reports his been feeling fatigued for the last week. He also notes he had a feeling of feeling feverish. He had a T-max of 99 degrees yesterday. Patient denies any chest pain, difficulty breathing, nausea, vomiting, diarrhea, hematuria or dysuria. Patient reports he recently had a nephrectomy done by Dr. Cantrell. Home Medications Home Medications Medication Instructions Recorded Confirmed Type atorvastatin 20 mg tablet 20 mg PO QAM 12/11/19 06/29/20 History lisinopril 40 mg tablet 40 mg PO QPM 12/11/19 06/29/20 History omega-3 fatty acids 1,000 mg 1,000 mg PO BID 12/11/19 06/29/20 History capsule amlodipine 5 mg tablet 5 mg PO QPM 12/27/19 06/29/20 History metformin 500 mg tablet 1,000 mg PO BID tab 12/27/19 06/29/20 History cholecalciferol (vitamin D3) 50 2,000 unit PO QAM cap 05/31/20 06/29/20 History mcg (2,000 unit) capsule calcium carbonate [Calcium 500] 500 mg PO QAM 06/29/20 06/29/20 History dutasteride 0.5 mg PO DAILY 06/29/20 06/29/20 History glucos sul [id number] 1 cap PO BID 06/29/20 06/29/20 History [Glucosamine Chondroitin] tamsulosin 0.4 mg PO DAILY 06/29/20 06/29/20 History Allergies Allergy/AdvReac Type Severity Reaction Status Date / Time No Known Drug Allergies Allergy Verified 06/29/20 17:06 Past Med/Surg History Medical History BPH with obstruction/lower urinary tract symptoms DM type 2 (diabetes mellitus, type 2) NIDDM- well controlled and stable Hearing deficit BL PAR[place]I- wears hearing aids bilaterally History of skin cancer removed - follows with derm routinely HTN (hypertension) Hyperlipemia Reducible left inguinal hernia Renal mass Surgical History History of colonoscopy History of prostate biopsy History of testicular mass excision History of tonsillectomy and adenoidectomy History of vasectomy Status post biopsy of skin Family History Son Schizophrenia Sister Cancer Mother Heart disease Other No family history of adverse response to anesthesia Social History Smoking Status: Never smoker Second Hand Exposure: No; Hx Alcohol Use: Yes Alcohol type: wine Hx Substance Use: No Preferred Language: Icelandic Communication Ability: Effective Manager Msw Required: No Beliefs That Will Affect Care: None marital status: Current Living Situation: Spouse current occupational status: retired How many Children do You have: 4 Feels Safe at Home: Yes Review of Systems A total of 10 systems reviewed and were otherwise negative Physical Exam Vital Signs Vital Signs - 24 hr 06/29/20 14:54 06/29/20 16:26 06/29/20 17:12 Temperature 37.3 C Temperature Source Oral Pulse Rate 100 H Pulse Rate [Left Finger] 110 H 113 H Respiratory Rate 18 22 22 Respiratory Effort / Characteristics Non-Labored Respiratory Depth Normal Blood Pressure 174/76 H Blood Pressure [Left Arm] 180/75 H 163/84 H Blood Pressure Mean 108 Blood Pressure Mean [Left Arm] 110 110 Pulse Oximetry 95 95 94 Oxygen Delivery Method Room Air Room Air Room Air Sepsis Recent Fever Within 48 Hours No Sepsis New/Unexplained Change in Mental Status No Sepsis Action Taken by Nursing No Action Required 06/29/20 18:37 Temperature Temperature Source Pulse Rate Pulse Rate [Left Finger] 112 H Respiratory Rate 24 Respiratory Effort / Characteristics Respiratory Depth Blood Pressure Blood Pressure [Left Arm] 146/78 H Blood Pressure Mean Blood Pressure Mean [Left Arm] 100 Pulse Oximetry 94 Oxygen Delivery Method Room Air Sepsis Recent Fever Within 48 Hours Sepsis New/Unexplained Change in Mental Status Sepsis Action Taken by Nursing Physical Exam GENERAL: He is oriented to person, place, and time. He appears well-developed and well-nourished. He does not appear distressed. HENT: Exam performed. - Head: Normocephalic and atraumatic. - Right Ear: External ear normal. No mastoid tenderness. - Left Ear: External ear normal. No mastoid tenderness. - Mouth/Throat: The oropharynx is clear and moist. No trismus in the jaw. No dental abscesses or uvula swelling. No oropharyngeal exudate or tonsillar abscesses. EYES: Conjunctivae and EOM are normal. Pupils are equal, round, and reactive to light. Right eye exhibits no discharge. Left eye exhibits no discharge. No scleral icterus. NECK: Normal range of motion. Neck supple. No JVD present. No spinous process tenderness present. No carotid bruit present. No rigidity. No tracheal deviation and normal range of motion present. No Brudzinski's sign and no Kernig's sign noted. CV: Normal rate, regular rhythm, normal heart sounds and intact distal pulses. There is no peripheral edema. Palpable radial pulses bue. PULM/CHEST: Effort normal and breath sounds normal. No respiratory distress. No stridor. He has no wheezes. He has no rales. - Chest Wall: He exhibits no tenderness. ABD: The abdomen is soft. Bowel sounds are normal. He has no distension. No mass is present. There is no tenderness. There is no rebound, no guarding, no Barbosa's sign and no tenderness at McBurney's point. Rovsig negative. Surgical incision wounds on the anterior abdominal wall are clean with no surrounding erythema. No discharge or bleeding. MUSC/SKEL: Normal range of motion. There is no peripheral edema, tenderness or deformity. LYMPH: No cervical adenopathy. NEURO: He is alert and oriented to person, place, and time. He has normal strength. No cranial nerve deficit or sensory deficit. Coordination and gait normal. GCS eye subscore is 4. GCS verbal subscore is 5. GCS motor subscore is 6. Cerebellar tests wnl. SKIN: Skin is warm and dry. He is not diaphoretic. PSYCH: He has a normal mood and affect. Behavior is normal. Judgment and thought content normal. Course Course 1549: The patient was evaluated in room B9. A complete history and physical exam was performed. EMR reviewed. Patient had a robotic partial nephrectomy done by Dr. Cantrell on June 06, 2020. Patient had blood work done yesterday which showed a leukocytosis of 14. Hemoglobin 9.2. Creatinine was up to 2.38, up from 1.75 on June [id number]: Vital signs stable. Labs show leukocytosis of 22.38. Hemoglobin 9. Creatinine is improved to 2.18. CT shows interval development of a 14 cm right- sided perinephric hematoma. Spoke with Dr. Noe from urology. He says that given the patient's minimal elevation of his baseline creatinine, it is less likely a neuroma. He still does recommend the patient be admitted to the medicine service with urology on consult to make sure that there creatinine does not rise and the patient improves with his fevers. He recommends that the patient be given Zosyn at this time. Dr. Solomon [facility] hospitalist will be notified. Administered Medications Discontinued Medications Piperacillin Sod/Tazobactam Sod (Zosyn) 4.5 gm in 120 mls @ 240 mls/hr IV NOW ONE Stop: 06/29/20 18:11 Last Infusion: 06/29/20 18:35 Dose: 0 mls/hr Documented by: [id number] Admin: 06/29/20 17:47 Dose: 240 mls/hr Documented by: [id number] Medical Decision Making Laboratory Data Result diagrams: 06/29/20 16:17 06/29/20 16:17 Lab Results 06/29/20 06/29/20 06/29/20 Range/Units 16:17 16:17 16:17 WBC 22.38 H (4.8-10.8) K/uL RBC 3.02 L (4.7-6.1) M/uL Hgb 9.0 L (14.0-18.0) g/dL Hct 28.4 L (42-52) % MCV 94.0 (80-100) fL MCH 29.8 (25-34) pg MCHC 31.7 L (32-36) g/dL RDW Std Deviation 45.2 (36.4-46.3) fL RDW Coeff of Geri 13.1 (11.5-14.5) % Plt Count 542 H (130-400) K/uL MPV 9.0 (7.4-10.4) fL Immature Gran % (Auto) 0.7 % Neut % (Auto) 78.7 % Lymph % (Auto) 6.5 % [place] % (Auto) 13.7 % Eos % (Auto) 0.3 % Baso % (Auto) 0.1 % Neut # (Auto) 17.62 H (1.4-6.5) K/uL Lymph # (Auto) 1.46 (1.2-3.4) K/uL [place] # (Auto) 3.06 H (0.11-0.59) K/uL Eos # (Auto) 0.07 (0-0.5) K/uL Baso # (Auto) 0.02 (0-0.2) K/uL Immature Gran # (Auto) 0.15 H (0.00-0.02) K/uL Hypochromasia Present Echinocytes 1+ PT 11.8 (9.0-12.0) Seconds INR 1.1 (0.9-1.1) APTT 41.3 H (21.0-31.0) Seconds PTT Ratio 1.5 Sodium 137 (136-145) mmol/L Potassium 4.7 (3.5-5.1) mmol/L Chloride 107 (98-107) mmol/L Carbon Dioxide 23 (21-32) mmol/L Anion Gap 7.0 (3-11) BUN 34 H (7-18) mg/dl Creatinine 2.18 H (0.6-1.4) mg/dl Est Cr Clr Drug Dosing 28.3 ml/min Est GFR ( Amer) 33.1 Est GFR (Non-Af Amer) 28.6 BUN/Creatinine Ratio 15.7 (10-20) Glucose 132 H (70-99) mg/dl Lactate (0.4-2.0) mmol/L Calcium 10.6 H (8.5-10.1) mg/dl Magnesium 2.0 (1.8-2.4) mg/dl Total Bilirubin 0.6 (0.2-1) mg/dl Direct Bilirubin 0.2 (0-0.2) mg/dl AST 25 (15-37) U/L ALT 46 (12-78) U/L Alkaline Phosphatase 106 (45-117) U/L Troponin I < 0.015 (0-0.045) ng/ml Total Protein 7.3 (6.4-8.2) gm/dl Albumin 2.8 L (3.4-5.0) gm/dl Lipase 106 (73-393) U/L Urine Color Urine Appearance (Clear) Urine pH (4.5-7.5) Ur Specific [place] (1.000-1.030) Urine Protein (Negative) Urine Glucose (UA) (Negative) Urine Ketones (Negative) Urine Blood (Negative) Urine Nitrite (Negative) Urine Bilirubin (Negative) Urine Urobilinogen (Negative) Ur Leukocyte Esterase (Negative) Urine WBC (Auto) (0-5) /hpf Urine RBC (Auto) (0-4) /hpf U Hyaline Cast (Auto) (0-5) /lpf U Epithel Cells (Auto) (0-5) /lpf Urine Bacteria (Auto) (Negative) 06/29/20 06/29/20 Range/Units 16:17 16:20 WBC (4.8-10.8) K/uL RBC (4.7-6.1) M/uL Hgb (14.0-18.0) g/dL Hct (42-52) % MCV (80-100) fL MCH (25-34) pg MCHC (32-36) g/dL RDW Std Deviation (36.4-46.3) fL RDW Coeff of Geri (11.5-14.5) % Plt Count (130-400) K/uL MPV (7.4-10.4) fL Immature Gran % (Auto) % Neut % (Auto) % Lymph % (Auto) % [place] % (Auto) % Eos % (Auto) % Baso % (Auto) % Neut # (Auto) (1.4-6.5) K/uL Lymph # (Auto) (1.2-3.4) K/uL [place] # (Auto) (0.11-0.59) K/uL Eos # (Auto) (0-0.5) K/uL Baso # (Auto) (0-0.2) K/uL Immature Gran # (Auto) (0.00-0.02) K/uL Hypochromasia Echinocytes PT (9.0-12.0) Seconds INR (0.9-1.1) APTT (21.0-31.0) Seconds PTT Ratio Sodium (136-145) mmol/L Potassium (3.5-5.1) mmol/L Chloride (98-107) mmol/L Carbon Dioxide (21-32) mmol/L Anion Gap (3-11) BUN (7-18) mg/dl Creatinine (0.6-1.4) mg/dl Est Cr Clr Drug Dosing ml/min Est GFR ( Amer) Est GFR (Non-Af Amer) BUN/Creatinine Ratio (10-20) Glucose (70-99) mg/dl Lactate 1.5 (0.4-2.0) mmol/L Calcium (8.5-10.1) mg/dl Magnesium (1.8-2.4) mg/dl Total Bilirubin (0.2-1) mg/dl Direct Bilirubin (0-0.2) mg/dl AST (15-37) U/L ALT (12-78) U/L Alkaline Phosphatase (45-117) U/L Troponin I (0-0.045) ng/ml Total Protein (6.4-8.2) gm/dl Albumin (3.4-5.0) gm/dl Lipase (73-393) U/L Urine Color Yellow Urine Appearance Clear (Clear) Urine pH 5.0 (4.5-7.5) Ur Specific [place] 1.016 (1.000-1.030) Urine Protein 1+ H (Negative) Urine Glucose (UA) Negative (Negative) Urine Ketones Negative (Negative) Urine Blood 1+ H (Negative) Urine Nitrite Negative (Negative) Urine Bilirubin Negative (Negative) Urine Urobilinogen Negative (Negative) Ur Leukocyte Esterase Trace H (Negative) Urine WBC (Auto) 1-5 (0-5) /hpf Urine RBC (Auto) 0-4 (0-4) /hpf U Hyaline Cast (Auto) 1-5 (0-5) /lpf U Epithel Cells (Auto) 0-5 (0-5) /lpf Urine Bacteria (Auto) Negative (Negative) Imaging Data Radiologist's Impression: CT SCAN OF THE ABDOMEN AND PELVIS WITHOUT CONTRAST CLINICAL HISTORY: Postoperative fever COMPARISON STUDY: 04/26/2020 TECHNIQUE: CT scan of the abdomen and pelvis was performed from the lung bases to the proximal femurs. Images are reviewed in the axial, sagittal, and coronal planes. IV contrast was not administered for this examination. A dose lowering technique was utilized adhering to the principles of ALARA. CT DOSE: 391.78 mGy.cm FINDINGS: Lower chest: There are basilar atelectatic changes. There is a trace right pleural effusion. There is a small pericardial effusion Liver: The unenhanced liver is normal in size, contour, and attenuation. There is no intrahepatic biliary ductal dilatation. Gallbladder: Unremarkable. Spleen: Normal in size and attenuation. Pancreas: Unremarkable. Adrenal glands: Unremarkable. Kidneys: There is an 8 mm left renal angiomyolipoma. There are multiple left renal cysts. The patient appears be status post interval resection of a lower pole right renal angiomyolipoma and solid lower pole right renal mass. There is a 14 cm right-sided perinephric hematoma. Bowel: There are no transition zones to indicate bowel obstruction. There is a bowel containing (descending sigmoid colonic junction) left inguinal hernia. There is colonic diverticulosis. There is no evidence of acute diverticulitis. There is no evidence of acute appendicitis. Peritoneum: There is no intraperitoneal free air or abdominal ascites. Vasculature: The abdominal aorta is normal in course and caliber. Adenopathy: None. Pelvic viscera: The prostate is enlarged. Skeletal structures: No destructive osseous lesions are seen. IMPRESSION: 1. Interval development of a 14 cm right-sided perinephric hematoma status post right renal segmental resection 2. No evidence of bowel obstruction. No evidence of free air 3. Colonic diverticulosis. No evidence of acute diverticulitis 4. No evidence of acute appendicitis 5. Bowel containing left inguinal hernia 6. Bilateral renal cysts. Small left renal angiomyolipoma 7. Trace right pleural effusion. Basilar atelectasis. 8. Prostatomegaly ACT 112: Negative or not required by law. Electronically signed by: Reinaldo Ferguson M.D. 06/29/2020 5:04 PM Dictated: 06/29/201657 Transcribed: 06/29/201657 ECG Data Indication: + abdominal pain Rate (beats per minute): 109 Rhythm: + sinus tachycardia ECG Intervals/blocks: + Normal QRS, + Normal MI and + Normal QT-c ECG ST segments: + Normal ST segments Additional Comments: T wave inversion in aVL. [facility] Narrative 1549: The patient was evaluated in room B9. A complete history and physical exam was performed. EMR reviewed. Patient had a robotic partial nephrectomy done by Dr. Cantrell on June 06, 2020. Patient had blood work done yesterday which showed a leukocytosis of 14. Hemoglobin 9.2. Creatinine was up to 2.38, up from 1.75 on June [id number]: Vital signs stable. Labs show leukocytosis of 22.38. Hemoglobin 9. Creatinine is improved to 2.18. CT shows interval development of a 14 cm right- sided perinephric hematoma. Spoke with Dr. Noe from urology. He says that given the patient's minimal elevation of his baseline creatinine, it is less likely a neuroma. He still does recommend the patient be admitted to the medicine service with urology on consult to make sure that there creatinine does not rise and the patient improves with his fevers. He recommends that the patient be given Zosyn at this time. Dr. Solomon [facility] hospitalist will be notified. Impression & Plan Postoperative hematoma Discharge Plan Visit Data Chief Complaint: Referred by Doctor Stated Complaint: NO ENERGY OR APPETITE, REFERRED BY DOCTOR ED Provider: Eric Renteria Discharge Problem: Postoperative hematoma Patient Disposition: Admitted As Inpatient Discharge Instructions Interventions: ED Discharge Assessment Last Done: 06/29/20 18:55 Forms Stand Alone Forms: [facility] [employer] Prescriptions Prescriptions: No Action atorvastatin 20 mg tablet 20 mg PO QAM RF: 0 lisinopril 40 mg tablet 40 mg PO QPM RF: 0 omega-3 fatty acids [Fish Oil Concentrate] 1,000 mg capsule 1,000 mg PO BID RF: 0 metformin 500 mg tablet 1,000 mg PO BID RF: 0 cholecalciferol (vitamin D3) 50 mcg (2,000 unit) capsule 2,000 unit PO QAM RF: 0 amlodipine 5 mg tablet 5 mg PO QPM RF: 0 calcium carbonate [Calcium 500] 500 mg calcium (1,250 mg) Tablet 500 mg PO QAM RF: 0 dutasteride 0.5 mg capsule 0.5 mg PO DAILY RF: 0 Glucosamine Chondroitin 550-30-1 mg Capsule 1 cap PO BID RF: 0 tamsulosin 0.4 mg capsule 0.4 mg PO DAILY RF: 0 Referrals Referrals: Ralph Figueroa [Primary Care Provider] - Discharge Problem: Postoperative hematoma Qualifiers: Surgical complication system/body Area: genitourinary Procedure type: genitourinary Qualified Code(s): N99.840 - Postprocedural hematoma of a genitourinary system organ or structure following a genitourinary system proce dure
[2020-06-29 16:39] LABS: INR 1.1 (0.9-1.1); Partial Thromboplastin Ratio 1.5; Partial Thromboplastin Time 41.3 Seconds (21.0-31.0); Prothrombin Time 11.8 Seconds (9.0-12.0)
[2020-06-29 16:43] LABS: Hematocrit (blood only) 28.4 % (42-52); Mean Corpuscular Hemoglobin 29.8 pg (25-34); Mean Corpuscular Hgb Conc 31.7 g/dL (32-36); Platelet Count 542 K/uL (130-400); RDW Coefficient of Variation 13.1 % (11.5-14.5); RDW Standard Deviation 45.2 fL (36.4-46.3); Red Blood Count 3.02 M/uL (4.7-6.1); White Blood Count 22.38 K/uL (4.8-10.8)
[2020-06-29 16:46] LABS: Alanine Aminotransferase 46 U/L (12-78); Albumin Level 2.8 gm/dl (3.4-5.0); Aspartate Aminotransferase 25 U/L (15-37); BUN Creatinine Ratio 15.7 (10-20); Bilirubin Direct 0.2 mg/dl (0-0.2); Blood Urea Nitrogen 34 mg/dl (7-18); Calcium 10.6 mg/dl (8.5-10.1); Carbon Dioxide 23 mmol/L (21-32); Chloride 107 mmol/L (98-107); Creatinine Clr Calc Pharmacy 28.3 ml/min; Est GFR (African American) 33.1; Est GFR (Non-African American) 28.6; Glucose 132 mg/dl (70-99); Lipase 106 U/L (73-393); Potassium 4.7 mmol/L (3.5-5.1); Sodium 137 mmol/L (136-145)
[2020-06-29 16:51] LABS: Alkaline Phosphatase 106 U/L (45-117); Bilirubin,Total 0.6 mg/dl (0.2-1); Total Protein 7.3 gm/dl (6.4-8.2); Troponin I < 0.015 ng/ml (0-0.045)
[2020-06-29 16:54] LABS: Basophils # (auto) 0.02 K/uL (0-0.2); Basophils % (auto) 0.1 %; Echinocytes 1+; Eosinophils # (auto) 0.07 K/uL (0-0.5); Eosinophils % (auto) 0.3 %; Hypochromasia Present; Immature Granulocytes # (auto) 0.15 K/uL (0.00-0.02); Immature Granulocytes % (auto) 0.7 %; Lymphocytes # (auto) 1.46 K/uL (1.2-3.4); Lymphocytes % (auto) 6.5 %; Monocytes # (auto) 3.06 K/uL (0.11-0.59); Monocytes % (auto) 13.7 %; Neutrophils # (auto) 17.62 K/uL (1.4-6.5); Neutrophils % (auto) 78.7 %
--- NOTE | 2020-06-29 17:06 | CT Scan Report ---
CT SCAN OF THE ABDOMEN AND PELVIS WITHOUT CONTRAST CLINICAL HISTORY: Postoperative fever COMPARISON STUDY: 04/26/2020 TECHNIQUE: CT scan of the abdomen and pelvis was performed from the lung bases to the proximal femurs . Images are reviewed in the axial, sagittal, and coronal planes. IV contrast was not administered fo r this examination. A dose lowering technique was utilized adhering to the principles of ALARA. CT DOSE: 391.78 mGy.cm FINDINGS: Lower chest: There are basilar atelectatic changes. There is a trace right pleural effusion. There is a small pericardial effusion Liver: The unenhanced liver is normal in size, contour, and attenuation. There is no intrahepatic carla iary ductal dilatation. Gallbladder: Unremarkable. Spleen: Normal in size and attenuation. Pancreas: Unremarkable. Adrenal glands: Unremarkable. Kidneys: There is an 8 mm left renal angiomyolipoma. There are multiple left renal cysts. The patient appears be status post interval resection of a lower pole right renal angiomyolipoma and solid lower pole right renal mass. There is a 14 cm right-sided perinephric hematoma. Bowel: There are no transition zones to indicate bowel obstruction. There is a bowel containing (desc ending sigmoid colonic junction) left inguinal hernia. There is colonic diverticulosis. There is no e vidence of acute diverticulitis. There is no evidence of acute appendicitis. Peritoneum: There is no intraperitoneal free air or abdominal ascites. Vasculature: The abdominal aorta is normal in course and caliber. Adenopathy: None. Pelvic viscera: The prostate is enlarged. Skeletal structures: No destructive osseous lesions are seen. IMPRESSION: 1. Interval development of a 14 cm right-sided perinephric hematoma status post right renal segmental resection 2. No evidence of bowel obstruction. No evidence of free air 3. Colonic diverticulosis. No evidence of acute diverticulitis 4. No evidence of acute appendicitis 5. Bowel containing left inguinal hernia 6. Bilateral renal cysts. Small left renal angiomyolipoma 7. Trace right pleural effusion. Basilar atelectasis. 8. Prostatomegaly ACT 112: Negative or not required by law. Electronically signed by: Reinaldo Ferguson M.D. 06/29/2020 5:04 PM
[2020-06-29 17:30] LABS: Appearance Urine Clear (Clear); Bacteria Urine Automated Negative (Negative); Bilirubin Urine Negative (Negative); Blood Urine 1+ (Negative); Color Urine Yellow; Epithelial Cell Urine Auto 0-5 /lpf (0-5); Glucose Urine UA Negative (Negative); Ketones Urine Negative (Negative); Leukocyte Esterase Urine Trace (Negative); Nitrite Urine Negative (Negative); Protein Urine 1+ (Negative); RBC Urine Automated 0-4 /hpf (0-4); Specific Gravity Urine 1.016 (1.000-1.030); Urobilinogen Urine Negative (Negative)
[2020-06-29] MEDS ORDERED: PIPERACILLIN/TAZOBACTAM 4.5 GM/120 ML BAG IV ONE (17:42)
--- NOTE | 2020-06-29 18:01 | History & Physical Report ---
Date of Service June 29, 2020 Assessment & Plan (1) Perinephric hematoma: Patient is admitted with a perinephric hematoma. will consult urology. Possibility that this may be infectious vs reactive to a hematoma. will place on IV antibiotics. Blood cultures were drawn however IV antibiotics were given prior in the ED. URINE CULTURES were obtained prior to antibiotics. Procal was obtained: which is negative. cont. zosyn. (2) Clear cell carcinoma of right kidney: h/o of right partial nephrectomy. (3) LAFB (left anterior fascicular block): chronic. stable (4) Acute kidney injury: may consider IVF. creat is elevated however, it is improving from the day prior. will monitor (5) Hypertension: resume BP meds. If creatinine worsens, may hold wendie inhibitor (6) Renal mass: as stated above. (7) Diabetes: A1C is at goal. will montior. (8) Hypercholesterolemia: resume home meds (9) Hypercalcemia: will monitor History of Present Illness Chief Complaint: fever, weakness Primary Care Provider: Ralph Figueroa This is a pleasant 74 yo male with h/o RIGHT partial nephrectomy due to renal cell carcinoma this past month. Patient felt well up until 1 week ago, where he began having intermittent subjective fevers, chills, and fatigue. These would come and go. He reports his worst fever was in the 99 range. He denies any other associated symptoms such as dysuria, cough, sputum production, headache,diarrhea, dizziness. Allergies Allergy/AdvReac Type Severity Reaction Status Date / Time No Known Drug Allergies Allergy Verified 06/29/20 17:06 Home Medications Home Medications Medication Instructions Recorded Confirmed Type atorvastatin 20 mg tablet 20 mg PO QAM 12/11/19 06/29/20 History lisinopril 40 mg tablet 40 mg PO QPM 12/11/19 06/29/20 History omega-3 fatty acids 1,000 mg 1,000 mg PO BID 12/11/19 06/29/20 History capsule amlodipine 5 mg tablet 5 mg PO QPM 12/27/19 06/29/20 History metformin 500 mg tablet 1,000 mg PO BID tab 12/27/19 06/29/20 History cholecalciferol (vitamin D3) 50 2,000 unit PO QAM cap 05/31/20 06/29/20 History mcg (2,000 unit) capsule calcium carbonate [Calcium 500] 500 mg PO QAM 06/29/20 06/29/20 History dutasteride 0.5 mg PO DAILY 06/29/20 06/29/20 History glucos sul [id number] 1 cap PO BID 06/29/20 06/29/20 History [Glucosamine Chondroitin] tamsulosin 0.4 mg PO DAILY 06/29/20 06/29/20 History Past Med/Surg History Medical History BPH with obstruction/lower urinary tract symptoms DM type 2 (diabetes mellitus, type 2) NIDDM- well controlled and stable Hearing deficit BL PARISI- wears hearing aids bilaterally History of skin cancer removed - follows with derm routinely HTN (hypertension) Hyperlipemia Reducible left inguinal hernia Renal mass Surgical History History of colonoscopy History of prostate biopsy History of testicular mass excision History of tonsillectomy and adenoidectomy History of vasectomy Status post biopsy of skin Family History Son Schizophrenia Sister Cancer Mother Heart disease Other No family history of adverse response to anesthesia Social History Smoking Status: Never smoker Second Hand Exposure: No; Do You Dip or Chew Tobacco: No; Hx Alcohol Use: Yes Alcohol type: wine Hx Substance Use: No Preferred Language: Liberian Communication Ability: Effective Manager Animal Required: No Beliefs That Will Affect Care: None marital status: Current Living Situation: Spouse current occupational status: retired How many Children do You have: 4 Other Information That Helps Us Care for You: No Feels Safe at Home: Yes Safety Concerns: Feels Safe At This Time Review of Systems Constitutional: + malaise and + weakness; no sweats Eyes: no diplopia and no discharge Ear, Nose, Mouth, Throat: no ear pain and no tinnitus Respiratory: no cough and no change in sputum Cardiovascular: no chest pain and no chest pain with activity Gastrointestinal: no abdominal pain and no bloating Genitourinary: no dysuria and no urinary frequency Musculoskeletal: no back pain Integumentary: no acne and no rash Neurologic: no gait abnormality and no falls Psychiatric: no behavioral changes and no hopelessness Endocrine: no fatigue and no polydipsia Hematologic / Lymphatic: no easy bleeding Allergy / Immunological: no lip swelling Physical Exam Constitutional: WD/WN, vitals as above well developed Eyes: PERRL, conjunctivae normal, anicteric sclerae ENMT: external ear and nose normal, oropharynx normal Neck: trachea midline, no thyromegaly Respiratory: normal respiratory effort, lungs clear to auscultation Cardiovascular: RRR, no murmur, no edema Gastrointestinal (Abdomen): normal bowel sounds, soft, nontender, no hepatosplenomegaly small laparoscopic scars on abdomen Musculoskeletal: no cyanosis or clubbing, extremities motor strength 5/5 Skin: no rashes, warm and dry Neurologic: PERRL, EOMI, accommodation nl, no face palsy, no dysarthria Psychiatric: A+Ox3, euthymic affect Lymphatic: no cervical or axillary lymphadenopathy Results & Data Results & Data ([facility]) Vital Signs (Past 12 Hours) Vital Signs Temp Pulse Pulse Resp BP BP Pulse Ox 06/29/20 17:12 113 H 22 163/84 H 94 06/29/20 16:26 110 H 22 180/75 H 95 06/29/20 14:54 37.3 C 100 H 18 174/76 H 95 PG Care Time/CCT Total # of Minutes Spent Total Time Spent with Patient: Total time spent is greater than 50% in coordination of care (as documented) at patient's floor/unit and/or counseling patient: Coding Level of Care Code 06270 Initial Inpt Care Lvl 3 Diagnoses Perinephric hematoma S37.019A Clear cell carcinoma of right kidney C64.1 LAFB (left anterior fascicular block) I44.4 Acute kidney injury N17.9 Hypertension I10 Renal mass N28.89 Diabetes E11.9 Hypercholesterolemia E78.00 Hypercalcemia E83.52
[2020-06-29] MEDS ORDERED: POLYETHYLENE (MIRALAX) 17 GM PACK PO PRN (18:02)
[2020-06-29] MEDS ORDERED: PIPERACILL/TAZOBAC CONSULT ACTIVE PRN (19:01)
[2020-06-29] MEDS: ACETAMINOPHEN 325 MG TAB PO PRN (20:03)
--- NOTE | 2020-06-29 22:02 | Urology Consultation ---
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 (2) Acute kidney injury: (3) Perinephric hematoma: Patient has a large fluid collection near kidney. Possibilities include hematoma versus urinoma versus other fluid collection. Patient's temperature and white count concerns for possible infected fluid collection. At this point patient is tolerating supportive care. Discussed different options and concerns. Discussed management. Discussed patient's overall symptoms and concerns. Patient is currently resting comfortably and is not experiencing any considerable fevers at this time. He responded well to Tylenol without major issues or problems. He is tolerating the Zosyn for broad-spectrum antibiotics. We will need to continue to monitor temperature as well as vitals overall. If patient continues to have an increased temperature for vitals are concerning or changing will need to consider repeat cultures with blood cultures x2 as well as increasing coverage with additional antibiotics especially with more gram positive coverage. Due to patient's acute kidney injury with likely recommend against vancomycin would need to consider Zyvox versus other antibiotic for increased coverage. Patient will likely need repeat imaging at some point. Depending on how he does clinically if he continues to do well and improve will likely need to get a week to a few weeks. If patient continues to spike fevers or becomes more acutely ill may need repeat imaging in the next day or 2 days. Will also need monitor lab work. If patient has considerable drop in hemoglobin or becomes more acutely ill will likely need more urgent imaging. At that time would recommend a contrasted study with hydration protocol to assess for possible urine leak or other issue. Patient's creatinine is improving and did not have a considerable jump that would be concerning for re-absorption of creatinine with neuroma. Agree with plans for hydration and close monitoring. If considerable change such as the development of more significant fevers or and SIRS situation would need to consider interventional radiology for percutaneous drain of abscess/hematoma versus drainage of neuroma with stenting if concern for urine leak. At this point patient is doing well, recovering well, and tolerating interventions and supportive care. We will continue to monitor for now. History of Present Illness Attending Physician: Reggie Solomon History of Present Illness Patient with history of partial nephrectomy for a renal cell carcinoma approximately 1 month ago. Patient had been doing well. Had been overall healing and improving. Patient had a deep tumor which was found to be a renal cell carcinoma. Patient developed worsening issues over the last day of ill feelings. Brought to the ER where he was evaluated. Found to have a increase in his creatinine. Underwent a CT scan which showed a 14 cm fluid collection near the site of partial nephrectomy. Patient also had a considerable increase in his white count. Patient was admitted for presumed infection with supportive care and IV antibiotics which was started as Zosyn per recommendations. Patient was dealing with overall decreased energy, discomfort, and ill feelings. Patient developed sudden onset of minor pain into flank going down and radiating into groin and back in waves comes and goes. Was not ever severe or considerable. Discussed and reviewed patient's family history for any history of issues, infections, and disease. Also, discussed patient's medical/surgery history especially related to any history of urinary issues or stone disease. Patient was admitted and is undergoing observation with broad spectrum IV antibiotics. Last temperature check at approximately 730 found a significant fever this was the first fever recorded. Patient had a temp of 99 at home. Temp jumped to 38 8. This did respond well to oral Tylenol. Allergies Allergy/AdvReac Type Severity Reaction Status Date / Time No Known Drug Allergies Allergy Verified 06/29/20 17:06 Home Medications Home Medications Medication Instructions Recorded Confirmed Type atorvastatin 20 mg tablet 20 mg PO QAM 12/11/19 06/29/20 History lisinopril 40 mg tablet 40 mg PO QPM 12/11/19 06/29/20 History omega-3 fatty acids 1,000 mg 1,000 mg PO BID 12/11/19 06/29/20 History capsule amlodipine 5 mg tablet 5 mg PO QPM 12/27/19 06/29/20 History metformin 500 mg tablet 1,000 mg PO BID tab 12/27/19 06/29/20 History cholecalciferol (vitamin D3) 50 2,000 unit PO QAM cap 05/31/20 06/29/20 History mcg (2,000 unit) capsule calcium carbonate [Calcium 500] 500 mg PO QAM 06/29/20 06/29/20 History dutasteride 0.5 mg PO DAILY 06/29/20 06/29/20 History glucos sul [id number]-Mn 1 cap PO BID 06/29/20 06/29/20 History [Glucosamine Chondroitin] tamsulosin 0.4 mg PO DAILY 06/29/20 06/29/20 History Patient History Medical History BPH with obstruction/lower urinary tract symptoms DM type 2 (diabetes mellitus, type 2) NIDDM- well controlled and stable Hearing deficit BL [place]- wears hearing aids bilaterally History of skin cancer removed - follows with derm routinely HTN (hypertension) Hyperlipemia Reducible left inguinal hernia Renal mass Surgical History History of colonoscopy History of prostate biopsy History of testicular mass excision History of tonsillectomy and adenoidectomy History of vasectomy Status post biopsy of skin Family History Son Schizophrenia Sister Cancer Mother Heart disease Other No family history of adverse response to anesthesia Social History Smoking Status: Never smoker Second Hand Exposure: No; Do You Dip or Chew Tobacco: No; Hx Alcohol Use: Yes Alcohol type: wine Hx Substance Use: No Preferred Language: Vietnamese Communication Ability: Effective Pitch Worker Required: No Beliefs That Will Affect Care: None marital status: Current Living Situation: Spouse current occupational status: retired How many Children do You have: 4 Other Information That Helps Us Care for You: No Feels Safe at Home: Yes Safety Concerns: Feels Safe At This Time Review of Systems Review of Systems: All systems reviewed & are unremarkable except as noted in HPI & below Physical Exam Physical Exam: General: Alert and oriented x 3 in no acute distress. Patient is well nourished and well kept. Patient comfortable HEENT: Normocephalic Atraumatic. Inspection normal. Cranial Nerves 2-12 Grossly intact. Nares are clear. Neck is supple. Normal inspection of face. Normal inspection of neck. Neurologic: No deficits on inspection. Baseline for motor function and sensory. Psychologic: Normal affect. Respiratory: Nonlabored. No use of accessory muscles. No tachypnea or dyspnea. Cardiovascular: No tachycardia Skin: [place] and Dry. No rashes or visible lesions. Extremities: Moving without issues. No motor deficits on inspection Lymphatics: No edema Abdomen: Soft Non-distended. No acites. No rebound or guarding. No considerable flank pain Results & Data ([facility]) Vital Signs (Past 12 Hours) Vital Signs Temp Pulse Pulse Resp BP BP BP 06/29/20 19:41 38.8 C H 107 H 16 160/70 H 06/29/20 18:37 112 H 24 146/78 H 06/29/20 17:12 113 H 22 163/84 H 06/29/20 16:26 110 H 22 180/75 H 06/29/20 14:54 37.3 C 100 H 18 174/76 H Pulse Ox 06/29/20 19:41 06/29/20 18:37 94 06/29/20 17:12 94 06/29/20 16:26 95 06/29/20 14:54 95 PG Care Time/CCT Total # of Minutes Spent Total Time Spent with Patient: Total time spent is greater than 50% in coordination of care (as documented) at patient's floor/unit and/or counseling patient: Coding Level of Care Code 17522 Inpt Consult Level 5 Diagnoses Clear cell carcinoma of right kidney C64.1 Acute kidney injury N17.9 Perinephric hematoma S37.019A
[2020-06-29] MEDS: AMLODIPINE BESYLATE 5 MG TAB PO SCH (22:08)
[2020-06-29] MEDS: lisinopriL 40 MG TAB PO SCH (22:08)
[2020-06-29] MEDS: PIPERACILLIN/TAZOBACTAM 3.375 GM in DEXTROSE 5% 100 ML IV SCH (22:15)
[2020-06-30] MEDS: PIPERACILLIN/TAZOBACTAM 3.375 GM in DEXTROSE 5% 100 ML IV SCH ×3 (05:32→21:04)
[2020-06-30 07:50] LABS: Basophils # (auto) 0.03 K/uL (0-0.2); Basophils % (auto) 0.1 %; Eosinophils # (auto) 0.14 K/uL (0-0.5); Eosinophils % (auto) 0.7 %; Hematocrit (blood only) 27.3 % (42-52); Hemoglobin 8.6 g/dL (14.0-18.0); Immature Granulocytes # (auto) 0.13 K/uL (0.00-0.02); Immature Granulocytes % (auto) 0.6 %; Lymphocytes # (auto) 1.09 K/uL (1.2-3.4); Lymphocytes % (auto) 5.3 %; Mean Corpuscular Hemoglobin 29.6 pg (25-34); Mean Corpuscular Hgb Conc 31.5 g/dL (32-36); Mean Corpuscular Volume 93.8 fL (80-100); Mean Platelet Volume 8.7 fL (7.4-10.4); Monocytes # (auto) 2.54 K/uL (0.11-0.59); Monocytes % (auto) 12.4 %; Neutrophils # (auto) 16.59 K/uL (1.4-6.5); Neutrophils % (auto) 80.9 %; Platelet Count 465 K/uL (130-400); RDW Coefficient of Variation 13.1 % (11.5-14.5); RDW Standard Deviation 45.3 fL (36.4-46.3); Red Blood Count 2.91 M/uL (4.7-6.1); White Blood Count 20.52 K/uL (4.8-10.8)
[2020-06-30 08:21] LABS: BUN Creatinine Ratio 13.7 (10-20); Calcium 10.3 mg/dl (8.5-10.1); Creatinine Clr Calc Pharmacy 25.4 ml/min; Est GFR (Non-African American) 25.1; Potassium 4.7 mmol/L (3.5-5.1)
[2020-06-30] MEDS: ATORVASTATIN 20 MG TAB PO SCH (08:24)
[2020-06-30] MEDS: TAMSULOSIN HCL 0.4 MG CAP PO SCH (08:24)
[2020-06-30] MEDS: LACTATED RINGER'S 1,000 ML IV SCH (09:25)
--- NOTE | 2020-06-30 09:53 | Electrocardiogram Report ---
Test Reason : Blood Pressure : / mmHG Vent. Rate : 109 BPM Atrial Rate : 109 BPM P-R Int : 182 ms QRS Dur : 100 ms QT Int : 308 ms P-R-T Axes : 067 -75 076 degrees QTc Int : 414 ms Sinus tachycardia Left anterior fascicular block Voltage criteria for left ventricular hypertrophy Possible Septal infarct , age undetermined Abnormal ECG When compared with ECG of 22-MAY-2020 09:57, AL interval has decreased Septal infarct is now Present Confirmed by Neo Stockton ([id number]) on 06/30/2020 9:53:39 AM Referred By: Confirmed By:Neo Stockton
[2020-06-30] MEDS: ACETAMINOPHEN 325 MG TAB PO PRN (13:05)
--- NOTE | 2020-06-30 13:30 | Urology Progress Note ---
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 (2) Acute kidney injury: (3) Perinephric hematoma: Patient did well overnight without major changes or issues. Has not had further fevers after the 38.8 that was at approximately 7 PM last night. Has been doing overall well without major changes or issues. Discussed different options and concerns. Discussed possibility of hematoma versus urinoma versus other issues. Did have a mild elevation of his creatinine. Will need to monitor this over time. If major issues problems or concerns do develop a CT scan with contrast will likely be the most helpful in determining next. We will also plan to continue to monitor and await full sensitivities to likely de-escalate to oral antibiotics if possible. Will likely need approximately 10 to 14 days of total therapy depending on how patient does overall. If patient does continue to do well without major problems or issues and remained stable will likely need a few weeks to over time resolve fluid collection. Will likely need imaging over the next few months to assess this over time. If if patient has considerable worsening of symptoms, major fevers, development of SIRS, or other concerns or continued issues with elevated creatinine and acute renal injury may need to consider percutaneous drains but this would be then determined after CT scan. Plan to continue with supportive care. Continue to monitor. Will await full cultures results. Patient has a large fluid collection near kidney. Possibilities include hematoma versus urinoma versus other fluid collection. Patient's temperature and white count concerns for possible infected fluid collection. At this point patient is tolerating supportive care. Discussed different options and concerns. Discussed management. Discussed patient's overall symptoms and concerns. Patient is currently resting comfortably and is not experiencing any considerable fevers at this time. He responded well to Tylenol without major issues or problems. He is tolerating the Zosyn for broad-spectrum antibiotics. We will need to continue to monitor temperature as well as vitals overall. If patient continues to have an increased temperature for vitals are concerning or changing will need to consider repeat cultures with blood cultures x2 as well as increasing coverage with additional antibiotics especially with more gram positive coverage. Due to patient's acute kidney injury with likely recommend against vancomycin would need to consider Zyvox versus other antibiotic for increased coverage. Patient will likely need repeat imaging at some point. Depending on how he does clinically if he continues to do well and improve will likely need to get a week to a few weeks. If patient continues to spike fevers or becomes more acutely ill may need repeat imaging in the next day or 2 days. Will also need monitor lab work. If patient has considerable drop in hemoglobin or becomes more acutely ill will likely need more urgent imaging. At that time would recommend a contrasted study with hydration protocol to assess for possible urine leak or other issue. Patient's creatinine is improving and did not have a considerable jump that would be concerning for re-absorption of creatinine with neuroma. Agree with plans for hydration and close monitoring. If considerable change such as the development of more significant fevers or and SIRS situation would need to consider interventional radiology for percutaneous drain of abscess/hematoma versus drainage of neuroma with stenting if concern for urine leak. At this point patient is doing well, recovering well, and tolerating interventions and supportive care. We will continue to monitor for now. Admission and Anticipated Discharge Date Admission Date: June 29, 2020 Subjective Patient admitted with perinephric fluid collection likely hematoma with fever and ill feelings and elevated white count after partial nephrectomy approximately 1 month ago.. Patient is afebrile since the 38.8 temp last night. Patient has been tolerating antibiotics. Has no major other problems or issues. Has no considerable pain or discomfort. Has been undergoing supportive care with oral medications, IV medications, IV fluids, and oral intake. Is doing better without considerable increase in pain or major issues. Has not developed severe vomiting or other issues. Has not experienced fever or chills. Has been tolerating oral medications. Is tolerating fluids. Has noticed some frequency and urgency. Has not had severe pain in the back and flank. No severe episodes or major changes. Review of Systems Review of Systems: All systems reviewed & are unremarkable except as noted in HPI & below Physical Exam Physical Exam: General: Alert in no acute distress. HEENT: Normocephalic Atraumatic. Inspection normal. Cranial Nerves 2-12 Grossly intact. Normal inspection of face. Normal inspection of neck. Psychologic: Normal affect. Respiratory: Nonlabored. No use of accessory muscles. No tachypnea or dyspnea. Cardiovascular: No tachycardia Skin: [place] and Dry. No rashes or visible lesions. Extremities/Lymphatics: No edema Abdomen: Soft Non-distended. No rebound or guarding. Results & Data ([facility]) Vital Signs (Past 12 Hours) Vital Signs Temp Pulse Resp BP Pulse Ox 06/30/20 11:31 37.6 C H 101 H 16 142/71 H 93 06/30/20 07:11 37.4 C 98 H 16 122/65 92 PG Care Time/CCT Total # of Minutes Spent Total Time Spent with Patient: Total time spent is greater than 50% in coordination of care (as documented) at patient's floor/unit and/or counseling patient: Coding Level of Care Code 92393 Subseq Hosp Care Lvl 3 Diagnoses Clear cell carcinoma of right kidney C64.1 Acute kidney injury N17.9 Perinephric hematoma S37.019A
--- NOTE | 2020-06-30 14:04 | Hospitalist Progress Note ---
Date of Service June 30, 2020 Assessment & Plan (1) Perinephric hematoma: 74-year-old man with a status post recent right partial nephrectomy secondary to renal cell carcinoma presenting with intermittent subjective fevers, chills, and fatigue denying other constitutional symptoms, diagnosed with perinephric hematoma #Perinephric hematoma Patient with recent history approximately 1 month ago right partial nephrectomy secondary to renal cell carcinoma follows with urology as an outpatient. Patient has had a one-week history of subjective fevers, chills and fatigue. Presented to the emergency department and was evaluated, imaging demonstrated a perinephric mass, thought to be a hematoma, other possible etiologies are infectious versus reactive. In the emergency department urine cultures were obtained prior to antibiotic administration, blood cultures were obtained after antibiotic administration, pro-Lucho was obtained which was negative. Patient was evaluated by urology in the emergency department, they are recommending antibiotic management and fluids for now with careful monitoring of the patient's symptoms. Admitted to [facility] IV Zosyn Replete electrolytes as indicated Fluid rehydration Follow for signs and symptoms of development of Sirs or sepsis Urology consulted -Recommending antibiotics and fluids -If major issues develop consider CT scan with contrast -Awaiting full sensitivities and plan to de-escalate antibiotics -We will need follow-up imaging in 4 weeks. -Should patient develop further symptoms or sepsis will need to consider transfer for interventional radiology #Acute on chronic kidney injury Patient with a history of chronic kidney disease follows with urology and nephrology as an outpatient. Presented to the emergency department with a creatinine of 2.4, from review of records it appears as if this baseline creatinine is around 1.3 prior to partial nephrectomy, now appears to be around 1.8. Patient has been receiving gentle fluid hydration, creatinine will be monitored on daily basis if significant derangement develops will consider consulting nephrology. -CR:2.38->2.18->2.43 -Judicious fluid administration monitor for signs and symptoms of fluid overload -Avoid nephrotoxins #History of clear cell carcinoma of the right kidney Follows outpatient with urology, and nephrology, recent partial nephrectomy, see above. #Hypertension History of, well-controlled on KENDALL-I at home, given his recent elevation creatinine will continue to hold KENDALL inhibitor -Hold KENDALL for now, resume when able #Renal mass See above #Diabetes A1c at goal, will monitor #Hypercholesterolemia Continue home meds #Hypercalcemia History of, trend CMP every 3 day. FENa: LR at 80 mils, type II diabetic diet Code Status: Full code DVT PPX: We will place on heparin, in case procedure is required PT/OT: Not indicated Dispo: Brown Rainey MD PGY 2, FCM This chart was completed utilizing [employer] voice recognition software. Grammatical errors, random word insertions, pronoun errors, and in complete sentences are an occasional consequence of the system. Any questions or concerns about the content, text, or information contained within the body of this dictation should be addressed directly to the physician for clarification. 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 Rainey. In agreement with the documented findings as noted in the resident documentation with any exceptions or additions as noted here. 74 y/o male h/o HTN, HLD, DMII p/w fever/chills & perinephric collection in the setting of recent R partial nephrectomy 2/2 renal cell carcinoma Improved overall fatigue with no new fever, chills, abdominal pain On examination, S1/S2 nl RRR no MCG. CTAB. Abd BS+ve Mild TTP of the R abdomen/flank Perinephric collection (likely hematoma) w/ recent R partial nephrectomy - urology consultation appreciated - Zosyn, f/u UCx, BCx WILVER on CKD III - IV hydration, avoid nephrotoxic medications, trend BMP daily Else see resident documentation as noted. Subjective Patient lying in bed this morning in no acute distress. Reports no acute events overnight, reports pain is well controlled, reports voiding, tolerating his diet, had a bowel movement yesterday, slept intermittently overnight. I reviewed the patient's history and physical with him and he confirmed the pertinent points. Urology was consulted yesterday and recommended antibiotics IV fluid hydration, patient is tolerating this well. At present there are no acute concerns and all questions have been answered. Review of Systems Review of Systems: All systems reviewed & are unremarkable except as noted in HPI & below Physical Exam Physical Exam: General: In no acute distress HEENT: Normocephalic atraumatic Neck: Normal to visual inspection Cardiac: Palpated pulses symmetrical pulses bilaterally, did not appreciate significant rate or rhythm abnormalities, Respiratory: Symmetrical chest expansion bilaterally without labored breathing GI: Soft, intermittently tender, nondistended, no rebound, no guarding MSK: Moves all extremities Skin: Cool dry and intact Neuro: Alert and oriented Psych: Calm and cooperative Results & Data Results & Data ([facility]) Vital Signs (Past 12 Hours) Vital Signs Temp Pulse Resp BP Pulse Ox 06/30/20 11:31 37.6 C H 101 H 16 142/71 H 93 06/30/20 07:11 37.4 C 98 H 16 122/65 92 Laboratory Results 06/30/20 06/30/20 06/30/20 Range/Units 12:00 08:15 07:38 WBC (4.8-10.8) K/uL RBC (4.7-6.1) M/uL Hgb (14.0-18.0) g/dL Hct (42-52) % MCV (80-100) fL MCH (25-34) pg MCHC (32-36) g/dL RDW Std Deviation (36.4-46.3) fL RDW Coeff of Geri (11.5-14.5) % Plt Count (130-400) K/uL MPV (7.4-10.4) fL Immature Gran % (Auto) % Neut % (Auto) % Lymph % (Auto) % [place] % (Auto) % Eos % (Auto) % Baso % (Auto) % Neut # (Auto) (1.4-6.5) K/uL Lymph # (Auto) (1.2-3.4) K/uL [place] # (Auto) (0.11-0.59) K/uL Eos # (Auto) (0-0.5) K/uL Baso # (Auto) (0-0.2) K/uL Immature Gran # (Auto) (0.00-0.02) K/uL Hypochromasia Echinocytes PT (9.0-12.0) Seconds INR (0.9-1.1) APTT (21.0-31.0) Seconds PTT Ratio Sodium 136 (136-145) mmol/L Potassium 4.7 (3.5-5.1) mmol/L Chloride 106 (98-107) mmol/L Carbon Dioxide 23 (21-32) mmol/L Anion Gap 7.0 (3-11) BUN 33 H (7-18) mg/dl Creatinine 2.43 H (0.6-1.4) mg/dl Est Cr Clr Drug Dosing 25.4 ml/min Est GFR ( Amer) 29.0 Est GFR (Non-Af Amer) 25.1 BUN/Creatinine Ratio 13.7 (10-20) Glucose 134 H (70-99) mg/dl POC Glucose 136 H 143 H (70-99) mg/dl Lactate (0.4-2.0) mmol/L Calcium 10.3 H (8.5-10.1) mg/dl Magnesium (1.8-2.4) mg/dl Total Bilirubin (0.2-1) mg/dl Direct Bilirubin (0-0.2) mg/dl AST (15-37) U/L ALT (12-78) U/L Alkaline Phosphatase (45-117) U/L Troponin I (0-0.045) ng/ml Total Protein (6.4-8.2) gm/dl Albumin (3.4-5.0) gm/dl Lipase (73-393) U/L Procalcitonin (0-0.5) ng/ml Urine Color Urine Appearance (Clear) Urine pH (4.5-7.5) Ur Specific Spruce (1.000-1.030) Urine Protein (Negative) Urine Glucose (UA) (Negative) Urine Ketones (Negative) Urine Blood (Negative) Urine Nitrite (Negative) Urine Bilirubin (Negative) Urine Urobilinogen (Negative) Ur Leukocyte Esterase (Negative) Urine WBC (Auto) (0-5) /hpf Urine RBC (Auto) (0-4) /hpf U Hyaline Cast (Auto) (0-5) /lpf U Epithel Cells (Auto) (0-5) /lpf Urine Bacteria (Auto) (Negative) 06/30/20 06/29/20 06/29/20 Range/Units 07:38 18:46 16:20 WBC 20.52 H (4.8-10.8) K/uL RBC 2.91 L (4.7-6.1) M/uL Hgb 8.6 L (14.0-18.0) g/dL Hct 27.3 L (42-52) % MCV 93.8 (80-100) fL MCH 29.6 (25-34) pg MCHC 31.5 L (32-36) g/dL RDW Std Deviation 45.3 (36.4-46.3) fL RDW Coeff of Geri 13.1 (11.5-14.5) % Plt Count 465 H (130-400) K/uL MPV 8.7 (7.4-10.4) fL Immature Gran % (Auto) 0.6 % Neut % (Auto) 80.9 % Lymph % (Auto) 5.3 % [place] % (Auto) 12.4 % Eos % (Auto) 0.7 % Baso % (Auto) 0.1 % Neut # (Auto) 16.59 H (1.4-6.5) K/uL Lymph # (Auto) 1.09 L (1.2-3.4) K/uL [place] # (Auto) 2.54 H (0.11-0.59) K/uL Eos # (Auto) 0.14 (0-0.5) K/uL Baso # (Auto) 0.03 (0-0.2) K/uL Immature Gran # (Auto) 0.13 H (0.00-0.02) K/uL Hypochromasia Echinocytes PT (9.0-12.0) Seconds INR (0.9-1.1) APTT (21.0-31.0) Seconds PTT Ratio Sodium (136-145) mmol/L Potassium (3.5-5.1) mmol/L Chloride (98-107) mmol/L Carbon Dioxide (21-32) mmol/L Anion Gap (3-11) BUN (7-18) mg/dl Creatinine (0.6-1.4) mg/dl Est Cr Clr Drug Dosing ml/min Est GFR ( Amer) Est GFR (Non-Af Amer) BUN/Creatinine Ratio (10-20) Glucose (70-99) mg/dl POC Glucose (70-99) mg/dl Lactate (0.4-2.0) mmol/L Calcium (8.5-10.1) mg/dl Magnesium (1.8-2.4) mg/dl Total Bilirubin (0.2-1) mg/dl Direct Bilirubin (0-0.2) mg/dl AST (15-37) U/L ALT (12-78) U/L Alkaline Phosphatase (45-117) U/L Troponin I (0-0.045) ng/ml Total Protein (6.4-8.2) gm/dl Albumin (3.4-5.0) gm/dl Lipase (73-393) U/L Procalcitonin 0.31 (0-0.5) ng/ml Urine Color Yellow Urine Appearance Clear (Clear) Urine pH 5.0 (4.5-7.5) Ur Specific Spruce 1.016 (1.000-1.030) Urine Protein 1+ H (Negative) Urine Glucose (UA) Negative (Negative) Urine Ketones Negative (Negative) Urine Blood 1+ H (Negative) Urine Nitrite Negative (Negative) Urine Bilirubin Negative (Negative) Urine Urobilinogen Negative (Negative) Ur Leukocyte Esterase Trace H (Negative) Urine WBC (Auto) 1-5 (0-5) /hpf Urine RBC (Auto) 0-4 (0-4) /hpf U Hyaline Cast (Auto) 1-5 (0-5) /lpf U Epithel Cells (Auto) 0-5 (0-5) /lpf Urine Bacteria (Auto) Negative (Negative) 06/29/20 06/29/20 06/29/20 Range/Units 16:17 16:17 16:17 WBC (4.8-10.8) K/uL RBC (4.7-6.1) M/uL Hgb (14.0-18.0) g/dL Hct (42-52) % MCV (80-100) fL MCH (25-34) pg MCHC (32-36) g/dL RDW Std Deviation (36.4-46.3) fL RDW Coeff of Geri (11.5-14.5) % Plt Count (130-400) K/uL MPV (7.4-10.4) fL Immature Gran % (Auto) % Neut % (Auto) % Lymph % (Auto) % [place] % (Auto) % Eos % (Auto) % Baso % (Auto) % Neut # (Auto) (1.4-6.5) K/uL Lymph # (Auto) (1.2-3.4) K/uL [place] # (Auto) (0.11-0.59) K/uL Eos # (Auto) (0-0.5) K/uL Baso # (Auto) (0-0.2) K/uL Immature Gran # (Auto) (0.00-0.02) K/uL Hypochromasia Echinocytes PT 11.8 (9.0-12.0) Seconds INR 1.1 (0.9-1.1) APTT 41.3 H (21.0-31.0) Seconds PTT Ratio 1.5 Sodium 137 (136-145) mmol/L Potassium 4.7 (3.5-5.1) mmol/L Chloride 107 (98-107) mmol/L Carbon Dioxide 23 (21-32) mmol/L Anion Gap 7.0 (3-11) BUN 34 H (7-18) mg/dl Creatinine 2.18 H (0.6-1.4) mg/dl Est Cr Clr Drug Dosing 28.3 ml/min Est GFR ( Amer) 33.1 Est GFR (Non-Af Amer) 28.6 BUN/Creatinine Ratio 15.7 (10-20) Glucose 132 H (70-99) mg/dl POC Glucose (70-99) mg/dl Lactate 1.5 (0.4-2.0) mmol/L Calcium 10.6 H (8.5-10.1) mg/dl Magnesium 2.0 (1.8-2.4) mg/dl Total Bilirubin 0.6 (0.2-1) mg/dl Direct Bilirubin 0.2 (0-0.2) mg/dl AST 25 (15-37) U/L ALT 46 (12-78) U/L Alkaline Phosphatase 106 (45-117) U/L Troponin I < 0.015 (0-0.045) ng/ml Total Protein 7.3 (6.4-8.2) gm/dl Albumin 2.8 L (3.4-5.0) gm/dl Lipase 106 (73-393) U/L Procalcitonin (0-0.5) ng/ml Urine Color Urine Appearance (Clear) Urine pH (4.5-7.5) Ur Specific Spruce (1.000-1.030) Urine Protein (Negative) Urine Glucose (UA) (Negative) Urine Ketones (Negative) Urine Blood (Negative) Urine Nitrite (Negative) Urine Bilirubin (Negative) Urine Urobilinogen (Negative) Ur Leukocyte Esterase (Negative) Urine WBC (Auto) (0-5) /hpf Urine RBC (Auto) (0-4) /hpf U Hyaline Cast (Auto) (0-5) /lpf U Epithel Cells (Auto) (0-5) /lpf Urine Bacteria (Auto) (Negative) 06/29/20 Range/Units 16:17 WBC 22.38 H (4.8-10.8) K/uL RBC 3.02 L (4.7-6.1) M/uL Hgb 9.0 L (14.0-18.0) g/dL Hct 28.4 L (42-52) % MCV 94.0 (80-100) fL MCH 29.8 (25-34) pg MCHC 31.7 L (32-36) g/dL RDW Std Deviation 45.2 (36.4-46.3) fL RDW Coeff of Geri 13.1 (11.5-14.5) % Plt Count 542 H (130-400) K/uL MPV 9.0 (7.4-10.4) fL Immature Gran % (Auto) 0.7 % Neut % (Auto) 78.7 % Lymph % (Auto) 6.5 % [place] % (Auto) 13.7 % Eos % (Auto) 0.3 % Baso % (Auto) 0.1 % Neut # (Auto) 17.62 H (1.4-6.5) K/uL Lymph # (Auto) 1.46 (1.2-3.4) K/uL [place] # (Auto) 3.06 H (0.11-0.59) K/uL Eos # (Auto) 0.07 (0-0.5) K/uL Baso # (Auto) 0.02 (0-0.2) K/uL Immature Gran # (Auto) 0.15 H (0.00-0.02) K/uL Hypochromasia Present Echinocytes 1+ PT (9.0-12.0) Seconds INR (0.9-1.1) APTT (21.0-31.0) Seconds PTT Ratio Sodium (136-145) mmol/L Potassium (3.5-5.1) mmol/L Chloride (98-107) mmol/L Carbon Dioxide (21-32) mmol/L Anion Gap (3-11) BUN (7-18) mg/dl Creatinine (0.6-1.4) mg/dl Est Cr Clr Drug Dosing ml/min Est GFR ( Amer) Est GFR (Non-Af Amer) BUN/Creatinine Ratio (10-20) Glucose (70-99) mg/dl POC Glucose (70-99) mg/dl Lactate (0.4-2.0) mmol/L Calcium (8.5-10.1) mg/dl Magnesium (1.8-2.4) mg/dl Total Bilirubin (0.2-1) mg/dl Direct Bilirubin (0-0.2) mg/dl AST (15-37) U/L ALT (12-78) U/L Alkaline Phosphatase (45-117) U/L Troponin I (0-0.045) ng/ml Total Protein (6.4-8.2) gm/dl Albumin (3.4-5.0) gm/dl Lipase (73-393) U/L Procalcitonin (0-0.5) ng/ml Urine Color Urine Appearance (Clear) Urine pH (4.5-7.5) Ur Specific Spruce (1.000-1.030) Urine Protein (Negative) Urine Glucose (UA) (Negative) Urine Ketones (Negative) Urine Blood (Negative) Urine Nitrite (Negative) Urine Bilirubin (Negative) Urine Urobilinogen (Negative) Ur Leukocyte Esterase (Negative) Urine WBC (Auto) (0-5) /hpf Urine RBC (Auto) (0-4) /hpf U Hyaline Cast (Auto) (0-5) /lpf U Epithel Cells (Auto) (0-5) /lpf Urine Bacteria (Auto) (Negative) Medications Administered Current Inpatient Medications Acetaminophen (Acetaminophen 325 Mg Tab) 650 mg PO Q4H PRN PRN Reason: pain/fever Stop: 07/29/20 18:01 Last Admin: 06/30/20 13:05 Dose: 650 mg Documented by: Amlodipine Besylate (Amlodipine Besylate 5 Mg Tab) 5 mg PO QPM [facility] Stop: 07/29/20 20:59 Last Admin: 06/29/20 22:08 Dose: 5 mg Documented by: Atorvastatin Calcium (Atorvastatin 20 Mg Tab) 20 mg PO QAM [facility] Stop: 07/30/20 08:59 Last Admin: 06/30/20 08:24 Dose: 20 mg Documented by: Piperacillin Sod/Tazobactam (Sod 3.375 gm/ Dextrose) 115 mls @ 28.75 mls/hr IV Q8H [facility]; Protocol Stop: 07/09/20 21:59 Last Admin: 06/30/20 12:59 Dose: 28.8 mls/hr Documented by: Lactated Ringer's (Lr) 1,000 mls @ 80 mls/hr IV .[id number] [facility] Stop: 07/01/20 08:29 Last Admin: 06/30/20 09:25 Dose: 80 mls/hr Documented by: Lisinopril (Lisinopril 40 Mg Tab) 40 mg PO QPM [facility] Stop: 07/29/20 20:59 Last Admin: 06/29/20 22:08 Dose: 40 mg Documented by: Miscellaneous ((Dutasteride 0.5 Mg: Order Awaiting Action) 1 ea N/A QS [facility] Stop: 07/30/20 07:59 Last Admin: 06/30/20 08:24 Dose: Not Given Documented by: Miscellaneous Information (Piperacill/Tazobac Consult Active) 1 ea N/A UD PRN PRN Reason: Consult Stop: 07/29/20 19:00 Polyethylene Glycol (Polyethylene (Miralax) 17 Gm Pack) 17 gm PO DAILY PRN PRN Reason: Constipation Stop: 07/29/20 18:01 Tamsulosin HCl (Tamsulosin Hcl 0.4 Mg Cap) 0.4 mg PO DAILY [facility] Stop: 07/30/20 08:59 Last Admin: 06/30/20 08:24 Dose: 0.4 mg Documented by: Resident Activity Tracking Resident Involvement: Resident Care Provided Care Provided: Adult Hospital Medicine
[2020-06-30] MEDS: lisinopriL 40 MG TAB PO SCH (20:23)
[2020-06-30] MEDS: AMLODIPINE BESYLATE 5 MG TAB PO SCH (20:23)
[2020-06-30] MEDS: HEPARIN SOD 5,000 UNIT/0.5 ML VIAL SQ SCH (20:25)
[2020-06-30] MEDS: DUTASTERIDE 0.5MG PO SCH (22:30)
[2020-07-01] MEDS: LACTATED RINGER'S 1,000 ML IV SCH (01:10)
[2020-07-01] MEDS: PIPERACILLIN/TAZOBACTAM 3.375 GM in DEXTROSE 5% 100 ML IV SCH ×2 (05:11→18:42)
[2020-07-01 06:12] LABS: Hematocrit (blood only) 23.5 % (42-52); Hemoglobin 7.7 g/dL (14.0-18.0); Mean Corpuscular Hemoglobin 30.7 pg (25-34); Mean Corpuscular Hgb Conc 32.8 g/dL (32-36); Mean Corpuscular Volume 93.6 fL (80-100); Mean Platelet Volume 9.1 fL (7.4-10.4); Platelet Count 413 K/uL (130-400); RDW Coefficient of Variation 13.3 % (11.5-14.5); Red Blood Count 2.51 M/uL (4.7-6.1); White Blood Count 18.57 K/uL (4.8-10.8)
[2020-07-01 06:34] LABS: Basophils # (auto) 0.04 K/uL (0-0.2); Basophils % (auto) 0.2 %; Eosinophils # (auto) 0.64 K/uL (0-0.5); Eosinophils % (auto) 3.4 %; Immature Granulocytes # (auto) 0.19 K/uL (0.00-0.02); Lymphocytes # (auto) 1.61 K/uL (1.2-3.4); Lymphocytes % (auto) 8.7 %; Monocytes # (auto) 3.13 K/uL (0.11-0.59); Monocytes % (auto) 16.9 %; Neutrophils # (auto) 12.96 K/uL (1.4-6.5); Neutrophils % (auto) 69.8 %; RBC Morphology Unremarkable
[2020-07-01 06:47] LABS: Est GFR (African American) 26.6; Potassium 4.4 mmol/L (3.5-5.1)
[2020-07-01 06:48] LABS: Albumin Level 2.2 gm/dl (3.4-5.0); BUN Creatinine Ratio 12.6 (10-20); Calcium 9.3 mg/dl (8.5-10.1); Creatinine Clr Calc Pharmacy 23.7 ml/min
[2020-07-01 06:58] LABS: Albumin Globulin Ratio 0.6 (0.9-2); Bilirubin,Total 0.7 mg/dl (0.2-1); Globulin 3.4 gm/dl (2.5-4.0); Total Protein 5.6 gm/dl (6.4-8.2)
[2020-07-01] MEDS: ACETAMINOPHEN 325 MG TAB PO PRN ×3 (07:08→18:48)
[2020-07-01] MEDS: ATORVASTATIN 20 MG TAB PO SCH (08:17)
[2020-07-01] MEDS: TAMSULOSIN HCL 0.4 MG CAP PO SCH (08:17)
[2020-07-01] MEDS: DUTASTERIDE 0.5MG PO SCH (08:17)
[2020-07-01] MEDS: HEPARIN SOD 5,000 UNIT/0.5 ML VIAL SQ SCH ×2 (08:18→20:02)
--- NOTE | 2020-07-01 11:31 | Hospitalist Progress Note ---
Date of Service July 01, 2020 Assessment & Plan Admission and Anticipated Discharge Date Admission Date: June 29, 2020 74-year-old man status post recent right partial nephrectomy secondary to renal cell carcinoma presenting with intermittent subjective fevers, chills, and fatigue denying other constitutional symptoms, diagnosed with perinephric hematoma Perinephric hematoma Patient with recent history approximately 1-month-ago right partial nephrectomy secondary to renal cell carcinoma follows with urology as an outpatient. Patient has had a one-week history of subjective fevers, chills and fatigue. Presented to the emergency department and was evaluated, imaging demonstrated a perinephric mass, thought to be a hematoma. In the emergency department urine cultures were obtained prior to antibiotic administration, blood cultures were obtained after antibiotic administration, pro-Lucho was obtained which was negative. Patient was evaluated by urology in the emergency department, they are recommending antibiotic management and fluids for now with careful monitoring of the patient's symptoms. IV Zosyn Replete electrolytes as indicated Fluid rehydration Urology consulted -Recommending antibiotics and fluids -If major issues develop consider CT scan with contrast -Awaiting full sensitivities -We will need follow-up imaging in 4 weeks. -Should patient develop further symptoms or sepsis will need to consider transfer for interventional radiology - urine no growth final, blood no growth @ 24H Acute on chronic kidney injury Patient with a history of chronic kidney disease follows with urology and nephrology as an outpatient. Presented to the emergency department with a creatinine of 2.4, from review of records it appears as if this baseline creatinine is around 1.3 prior to partial nephrectomy, now appears to be around 1.8. Patient has been receiving gentle fluid hydration, creatinine will be monitored on daily basis if significant derangement develops will consider consulting nephrology. -CR:2.38->2.18->2.43 -> 2.61 -Judicious fluid administration -Avoid nephrotoxins History of clear cell carcinoma of the right kidney Follows outpatient with urology, and nephrology, recent partial nephrectomy, see above. Hypertension History of, well-controlled BP -continue to monitor for now Diabetes A1c at goal, will monitor - blood sugar 113 this AM Hypercholesterolemia Continue home meds Hypercalcemia History of, trend CMP every 3 day. DVT: Heparin Code: full Diet: CC Dispo: Med/surg Supervising Physician Co-Signing Physician Notes I personally examined the patient and verified all burleson points of history and exam, discussed case, and agree with decision making with Dr Christian feeling ok no real pain - had low grade temp just prior to my seeing him but otherwise feeling ok pain controlled vitals noted nad heent nc at mmm breathing unlabored no accessory muscles good effort skin no rashes no pallor or icterus perinephric hematoma -continue supportive care, abx, follow cultures, follow Hgb. appears to be stable. would like 24hrs fever free, would like ongoing stability in Hgb, ongoing good pain control - then could consider home acute renal failure - baseline Cr now appearing around 1.8, currently 2.61 - hasn't drank much today, clinically appearing prerenal. ecnouraged PO fluid intake he believes this will not be a problem. if can't drink ~60-70oz a day and/or if creatinine worsens anyway, then IVF and/or w/u further otherwise as above Subjective Feeling good today, his appetite has improved, and his temperature was feeling better and no fatigue. Review of Systems Review of Systems: Constitutional: denies fevers, chills Cardiac: denies chest pain, palpitations, pre syncope, PND Pulm: denies cough, shortness of breath : admits increased frequency denies urgency and pain, : denies constipation, admits diarrhea, denies abdominal pain Physical Exam Constitutional: well developed and well nourished; no acute distress Eyes: PERRL, conjunctivae normal, anicteric sclerae ENMT: external ear and nose normal, oropharynx normal Respiratory: normal respiratory effort, lungs clear to auscultation Cardiovascular: RRR, no murmur, no edema Gastrointestinal (Abdomen): soft, nTTP, scars c/d/i Neurologic: - alert and oriented Results & Data Results & Data ([facility]) Vital Signs (Past 12 Hours) Vital Signs Temp Pulse Resp BP Pulse Ox 07/01/20 07:29 36.8 C 96 H 16 139/69 93 07/01/20 05:11 37.1 C 07/01/20 01:11 37.7 C H 06/30/20 23:45 37.9 C H 108 H 17 121/66 92 CBC Results Results Complete Blood Count Results: RBC 2.51 M/uL (4.7-6.1) L 07/01/20 WBC 18.57 K/uL (4.8-10.8) H 07/01/20 Hgb 7.7 g/dL (14.0-18.0) L 07/01/20 Hct 23.3 % (42-52) L 07/01/20 Plt Count 413 K/uL (130-400) H 07/01/20 Chemistry (BMP) Results BMP Results: Sodium 137 mmol/L (136-145) 07/01/20 Potassium 4.4 mmol/L (3.5-5.1) 07/01/20 Chloride 107 mmol/L (98-107) 07/01/20 BUN 33 mg/dl (7-18) H 07/01/20 Creatinine 2.61 mg/dl (0.6-1.4) H 07/01/20 Glucose 113 mg/dl (70-99) H 07/01/20 Resident Activity Tracking Resident Involvement: Resident Care Provided Care Provided: Adult [facility] Medicine
[2020-07-01 12:00] LABS: Hematocrit (blood only) 23.3 % (42-52); Hemoglobin 7.7 g/dL (14.0-18.0)
--- NOTE | 2020-07-01 12:41 | Urology Progress Note ---
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 (2) Perinephric hematoma: Hospital day 3. The patient had a drop in his hemoglobin and mild elevation of creatinine. On repeat H&H patient still is maintaining a 7.7 hemoglobin. Patient overall is completely asymptomatic at this point without major pain issues or problems. His only complaint is some urgency and frequency but no major problems or issues. Does feel like he is voiding well. He is ambulating and tolerating a full diet without major problems or concerns. Discussed concerns and issues. Discussed possible increasing hematoma versus other issue. Discussed concerns moving forward. Plan will be to continue to monitor. Likely can check a few more rounds of lab to continue to monitor hemoglobin over time if he does have another drop or other worsening issues or concerns may need to consider vascular intervention and may require transfer in order to have this. At this point however patient is okay with continuing to observe and following with lab work. Is resting comfortably otherwise. Has no other major concerns. Patient has not had fever since the 38.8 on Wednesday night. Continue supportive care. Continue to monitor. Patient did well overnight without major changes or issues. Has not had further fevers after the 38.8 that was at approximately 7 PM last night. Has been doing overall well without major changes or issues. Discussed different options and concerns. Discussed possibility of hematoma versus urinoma versus other issues. Did have a mild elevation of his creatinine. Will need to monitor this over time. If major issues problems or concerns do develop a CT scan with contrast will likely be the most helpful in determining next. We will also plan to continue to monitor and await full sensitivities to likely de-escalate to oral antibiotics if possible. Will likely need approximately 10 to 14 days of total therapy depending on how patient does overall. If patient does continue to do well without major problems or issues and remained stable will likely need a few weeks to over time resolve fluid collection. Will likely need imaging over the next few months to assess this over time. If if patient has considerable worsening of symptoms, major fevers, development of SIRS, or other concerns or continued issues with elevated creatinine and acute renal injury may need to consider percutaneous drains but this would be then determined after CT scan. Plan to continue with supportive care. Continue to monitor. Will await full cultures results. Patient has a large fluid collection near kidney. Possibilities include hematoma versus urinoma versus other fluid collection. Patient's temperature and white count concerns for possible infected fluid collection. At this point patient is tolerating supportive care. Discussed different options and concerns. Discussed management. Discussed patient's overall symptoms and concerns. Patient is currently resting comfortably and is not experiencing any considerable fevers at this time. He responded well to Tylenol without major issues or problems. He is tolerating the Zosyn for broad-spectrum antibiotics. We will need to continue to monitor temperature as well as vitals overall. If patient continues to have an increased temperature for vitals are concerning or changing will need to consider repeat cultures with blood cultures x2 as well as increasing coverage with additional antibiotics especially with more gram positive coverage. Due to patient's acute kidney injury with likely recommend against vancomycin would need to consider Zyvox versus other antibiotic for inc reased coverage. Patient will likely need repeat imaging at some point. Depending on how he does clinically if he continues to do well and improve will likely need to get a week to a few weeks. If patient continues to spike fevers or becomes more acutely ill may need repeat imaging in the next day or 2 days. Will also need monitor lab work. If patient has considerable drop in hemoglobin or becomes more acutely ill will likely need more urgent imaging. At that time would recommend a contrasted study with hydration protocol to assess for possible urine leak or other issue. Patient's creatinine is improving and did not have a considerable jump that would be concerning for re-absorption of creatinine with neuroma. Agree with plans for hydration and close monitoring. If considerable change such as the development of more significant fevers or and SIRS situation would need to consider interventional radiology for percutaneous drain of abscess/hematoma versus drainage of neuroma with stenting if concern for urine leak. At this point patient is doing well, recovering well, and tolerating interventions and supportive care. We will continue to monitor for now. Admission and Anticipated Discharge Date Admission Date: June 29, 2020 Subjective Patient continues to do well. Is active and moving without major problems or mobility problems. Does have some mild urgency and frequency with no major complaints. Is tolerating diet without major problems or concerns. Has been active. Patient had a drop in his hemoglobin this morning. On repeat it stayed the same at 7.7. He also had a mild increase in his creatinine. Patient is experiencing no pain and overall feels well without major problems or issues. He does not have any weakness or dizziness or other concerning features. Has not had a fever and is not experiencing chills nausea or other complaints. Overall is doing very well. Review of Systems Review of Systems: All systems reviewed & are unremarkable except as noted in HPI & below Physical Exam Physical Exam: General: Alert in no acute distress. HEENT: Normocephalic Atraumatic. Inspection normal. Cranial Nerves 2-12 Grossly intact. Normal inspection of face. Normal inspection of neck. Psychologic: Normal affect. Respiratory: Nonlabored. No use of accessory muscles. No tachypnea or dyspnea. Cardiovascular: No tachycardia Skin: [place] and Dry. No rashes or visible lesions. Extremities/Lymphatics: No edema Abdomen: Soft Non-distended. No rebound or guarding. Results & Data ([facility]) Vital Signs (Past 12 Hours) Vital Signs Temp Pulse Resp BP BP Pulse Ox 07/01/20 12:07 36.9 C 92 H 18 118/63 96 07/01/20 07:29 36.8 C 96 H 16 139/69 93 07/01/20 05:11 37.1 C 07/01/20 01:11 37.7 C H PG Care Time/CCT Total # of Minutes Spent Total Time Spent with Patient: Total time spent is greater than 50% in coordination of care (as documented) at patient's floor/unit and/or counseling patient: Coding Level of Care Code 28386 Subseq Hosp Care Lvl 3 Diagnoses Clear cell carcinoma of right kidney C64.1 Perinephric hematoma S37.019A
--- NOTE | 2020-07-01 19:33 | Billing Data ---
Date of Service July 01, 2020 Coding Level of Care Code 68709 Subseq Hosp Care Lvl 3
[2020-07-01] MEDS: AMLODIPINE BESYLATE 5 MG TAB PO SCH (20:02)
[2020-07-01] MEDS: lisinopriL 40 MG TAB PO SCH (20:02)
[2020-07-02] MEDS: PIPERACILLIN/TAZOBACTAM 3.375 GM in DEXTROSE 5% 100 ML IV SCH ×3 (05:26→23:14)
[2020-07-02 06:16] LABS: Basophils # (auto) 0.04 K/uL (0-0.2); Basophils % (auto) 0.2 %; Eosinophils # (auto) 0.74 K/uL (0-0.5); Eosinophils % (auto) 3.7 %; Hematocrit (blood only) 22.3 % (42-52); Hemoglobin 7.3 g/dL (14.0-18.0); Immature Granulocytes # (auto) 0.18 K/uL (0.00-0.02); Immature Granulocytes % (auto) 0.9 %; Lymphocytes # (auto) 1.32 K/uL (1.2-3.4); Lymphocytes % (auto) 6.6 %; Mean Corpuscular Hemoglobin 30.3 pg (25-34); Mean Corpuscular Hgb Conc 32.7 g/dL (32-36); Mean Corpuscular Volume 92.5 fL (80-100); Mean Platelet Volume 8.9 fL (7.4-10.4); Neutrophils # (auto) 15.09 K/uL (1.4-6.5); Neutrophils % (auto) 75.6 %; Platelet Count 401 K/uL (130-400); RDW Coefficient of Variation 13.4 % (11.5-14.5); RDW Standard Deviation 45.9 fL (36.4-46.3); Red Blood Count 2.41 M/uL (4.7-6.1); White Blood Count 19.97 K/uL (4.8-10.8)
[2020-07-02 06:45] LABS: RBC Morphology Unremarkable
[2020-07-02 06:50] LABS: BUN Creatinine Ratio 11.7 (10-20); Calcium 9.3 mg/dl (8.5-10.1); Creatinine Clr Calc Pharmacy 23.8 ml/min; Est GFR (African American) 26.8; Est GFR (Non-African American) 23.1; Potassium 4.3 mmol/L (3.5-5.1)
[2020-07-02] MEDS: TAMSULOSIN HCL 0.4 MG CAP PO SCH (07:22)
[2020-07-02] MEDS: ATORVASTATIN 20 MG TAB PO SCH (07:22)
[2020-07-02] MEDS: HEPARIN SOD 5,000 UNIT/0.5 ML VIAL SQ SCH ×2 (07:23→20:17)
[2020-07-02] MEDS: DUTASTERIDE 0.5MG PO SCH (07:23)
--- NOTE | 2020-07-02 08:03 | Urology Progress Note ---
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 Had been progressing well until he developed symptoms of acute bleeding this weekend He has had intermittent fevers since that time His hemoglobin dropped but is remained stable now for 2 days His creatinine is elevated but stable at 2.6 We will continue to monitor closely He does have a borderline tachycardia I think at this point we can delay any transfusion, however if he has progression of his tachycardia or further decrease in his hemoglobin a transfusion would be an appropriate intervention I do not think he requires transfer for embolization at this stage presuming he remained stable I have discussed the findings and anticipated treatment course with the patient who is understanding of the situation and comfortable with the plan Admission and Anticipated Discharge Date Admission Date: June 29, 2020 Subjective Subjectively reports he is feeling relatively well Minimal tenderness over the right flank Mild urinary dysfunction but otherwise no complaints Labs have remained stable this morning Physical Exam Physical Exam: Minimal tenderness on the right flank to deep palpation Incisions healthy-appearing without erythema or discharge Constitutional: well developed and well nourished Respiratory: no respiratory distress Cardiovascular: Extremities: no pedal edema Gastrointestinal (Abdomen): Inspection/Auscultation: abdomen normal to inspection Results & Data ([facility]) Vital Signs (Past 12 Hours) Vital Signs Temp Pulse Resp BP Pulse Ox 07/02/20 07:08 36.8 C 105 H 16 149/69 H 95 07/02/20 05:28 37.4 C 07/01/20 23:10 36.7 C 100 H 18 131/67 94 PG Care Time/CCT Total # of Minutes Spent Total Time Spent with Patient: Total time spent is greater than 50% in coordination of care (as documented) at patient's floor/unit and/or counseling patient: Coding Level of Care Code 76117 Subseq Hosp Care Lvl 2 Diagnoses Clear cell carcinoma of right kidney C64.1 Perinephric hematoma S37.019A
[2020-07-02] MEDS: LACTATED RINGER'S 1,000 ML IV SCH ×2 (09:42→18:33)
--- NOTE | 2020-07-02 12:44 | Hospitalist Progress Note ---
Date of Service July 02, 2020 Assessment & Plan Admission and Anticipated Discharge Date Admission Date: June 29, 2020 74-year-old man status post recent right partial nephrectomy secondary to renal cell carcinoma presenting with intermittent subjective fevers, chills, and fatigue denying other constitutional symptoms, diagnosed with perinephric hematoma. Given that he has had fevers last night we will continue to monitor him today. Perinephric hematoma Patient with recent history approximately 1-month-ago right partial nephrectomy secondary to renal cell carcinoma follows with urology as an outpatient. Patient has had a one-week history of subjective fevers, chills and fatigue. Presented to the emergency department and was evaluated, imaging demonstrated a perinephric mass, thought to be a hematoma. In the emergency department urine cu ltures were obtained prior to antibiotic administration, blood cultures were obtained after antibiotic administration, pro-Lucho was obtained which was negative. Patient was evaluated by urology in the emergency department, they are recommending antibiotic management and fluids for now with careful monitoring of the patient's symptoms. continue IV Zosyn Replete electrolytes as indicated Fluid rehydration Urology consulted -Recommending antibiotics and fluids -If major issues develop consider CT -We will need follow-up imaging in 4 weeks. -Should patient develop further symptoms or sepsis will need to consider transfer for interventional radiology - urine no growth final, blood no growth @ 48 H Acute on chronic kidney injury Patient with a history of chronic kidney disease follows with urology and nephrology as an outpatient. Presented to the emergency department with a creatinine of 2.4, from review of records it appears as if this baseline creatinine is around 1.3 prior to partial nephrectomy, now appears to be around 1.8. Patient has been receiving gentle fluid hydration, creatinine will be monitored on daily basis if significant derangement develops will consider consulting nephrology. -Cr. elevated by stable - 2.38->2.18->2.43 -> 2.61-> 2.6 -Judicious fluid administration -Avoid nephrotoxins History of clear cell carcinoma of the right kidney Follows outpatient with urology, and nephrology, recent partial nephrectomy, see above. Hypertension History of, well-controlled BP -continue to monitor for now Diabetes A1c at goal, will monitor Hypercholesterolemia Continue home meds Hypercalcemia History of, trend CMP every 3 day. DVT: Heparin Code: full Diet: CC Dispo: Med/surg Supervising Physician Co-Signing Physician Notes I personally examined the patient and verified all bur[place]on points of history and exam, discussed case, and agree with decision making with Dr Christian feeling ok basically the same just had a temp overnight vitals noted nad heent nc at mmm breathing unlabored no accessory muscles good effort skin no rashes no pallor or icterus perinephric hematoma -continue supportive care, abx, follow cultures, follow Hgb. appears to be stable. would like 24hrs fever free but givne temp but no new sx otherwise and clinically appearing stable this is less worrisome, would also like ongoing stability in Hgb, ongoing good pain control - then could consider home acute renal failure - baseline Cr now appearing around 1.8, currently 2.6 - IVF. f/u in AM otherwise as above Subjective Doing okay this morning, he did feel his elevated temperature overnight. We discussed that he was overall doing well but given that he had a fever we would like for him to stay for 24-48 hours prior to discharge. Review of Systems Review of Systems: Constitutional: denies fevers, chills Cardiac: denies chest pain, palpitations GI: denies abdominal pain : denies urinary pain, frequency, urgency Physical Exam Constitutional: WD/WN, vitals as above Eyes: PERRL, conjunctivae normal, anicteric sclerae ENMT: external ear and nose normal, oropharynx normal Neck: normal visual inspection Respiratory: normal respiratory effort, lungs clear to auscultation Cardiovascular: RRR, no murmur, no edema Gastrointestinal (Abdomen): right flank locally rigid, nTTP, no guarding Results & Data Results & Data ([facility]) Vital Signs (Past 12 Hours) Vital Signs Temp Pulse Resp BP Pulse Ox 07/02/20 07:08 36.8 C 105 H 16 149/69 H 95 07/02/20 05:28 37.4 C CBC Results Results Complete Blood Count Results: RBC 2.41 M/uL (4.7-6.1) L 07/02/20 WBC 19.97 K/uL (4.8-10.8) H 07/02/20 Hgb 7.3 g/dL (14.0-18.0) L 07/02/20 Hct 22.3 % (42-52) L 07/02/20 Plt Count 401 K/uL (130-400) H 07/02/20 Chemistry (BMP) Results BMP Results: Sodium 137 mmol/L (136-145) 07/02/20 Potassium 4.3 mmol/L (3.5-5.1) 07/02/20 Chloride 107 mmol/L (98-107) 07/02/20 BUN 30 mg/dl (7-18) H 07/02/20 Creatinine 2.60 mg/dl (0.6-1.4) H 07/02/20 Glucose 118 mg/dl (70-99) H 07/02/20 Resident Activity Tracking Resident Involvement: Resident Care Provided Care Provided: Adult [facility]
--- NOTE | 2020-07-02 19:31 | Billing Data ---
Date of Service July 02, 2020 Coding Level of Care Code 79302 Subseq Hosp Care Lvl 3
[2020-07-02] MEDS: lisinopriL 40 MG TAB PO SCH (20:03)
[2020-07-02] MEDS: AMLODIPINE BESYLATE 5 MG TAB PO SCH (20:03)
[2020-07-02] MEDS ORDERED: Nursing to Pharmacy Communication SCH (20:45)
[2020-07-03 06:57] LABS: Basophils # (auto) 0.04 K/uL (0-0.2); Basophils % (auto) 0.2 %; Eosinophils # (auto) 0.61 K/uL (0-0.5); Eosinophils % (auto) 3.3 %; Hematocrit (blood only) 21.4 % (42-52); Immature Granulocytes # (auto) 0.17 K/uL (0.00-0.02); Immature Granulocytes % (auto) 0.9 %; Lymphocytes # (auto) 1.48 K/uL (1.2-3.4); Mean Corpuscular Hgb Conc 32.7 g/dL (32-36); Mean Corpuscular Volume 91.8 fL (80-100); Mean Platelet Volume 9.1 fL (7.4-10.4); Monocytes # (auto) 2.47 K/uL (0.11-0.59); Monocytes % (auto) 13.3 %; Neutrophils # (auto) 13.76 K/uL (1.4-6.5); Neutrophils % (auto) 74.3 %; Platelet Count 415 K/uL (130-400); RDW Coefficient of Variation 13.6 % (11.5-14.5); RDW Standard Deviation 45.5 fL (36.4-46.3); Red Blood Count 2.33 M/uL (4.7-6.1); White Blood Count 18.53 K/uL (4.8-10.8)
[2020-07-03 07:26] LABS: Calcium 9.3 mg/dl (8.5-10.1); Creatinine Clr Calc Pharmacy 24.4 ml/min; Est GFR (African American) 27.7; Est GFR (Non-African American) 23.9; Potassium 4.3 mmol/L (3.5-5.1)
[2020-07-03 07:34] LABS: RBC Morphology Unremarkable
[2020-07-03] MEDS: PIPERACILLIN/TAZOBACTAM 3.375 GM in DEXTROSE 5% 100 ML IV SCH (07:54)
[2020-07-03] MEDS: DUTASTERIDE 0.5MG PO SCH (07:57)
[2020-07-03] MEDS: TAMSULOSIN HCL 0.4 MG CAP PO SCH (07:57)
[2020-07-03] MEDS: ATORVASTATIN 20 MG TAB PO SCH (07:57)
[2020-07-03] MEDS: HEPARIN SOD 5,000 UNIT/0.5 ML VIAL SQ SCH (08:08)
--- NOTE | 2020-07-03 08:19 | Urology Progress Note ---
Date of Service July 03, 2020 Assessment & Plan (1) Clear cell carcinoma of right kidney: (2) Perinephric hematoma: Hgb stable Cr improving gradually vitals stable not hypotensive borderline tachy discussed transfusion, but he would greatly like to avoid it if at all possible receiving a dose of zosyn this AM likely could go home later today presuming he remains stable cover with oral abx x 5days Admission and Anticipated Discharge Date Admission Date: June 29, 2020 Subjective subjectively feeling very well no pain or complaints anxious to go home Review of Systems Review of Systems: All systems reviewed & are unremarkable except as noted in HPI & below Physical Exam Constitutional: well developed and well nourished Respiratory: no respiratory distress Cardiovascular: Extremities: no pedal edema Gastrointestinal (Abdomen): Inspection/Auscultation: abdomen normal to inspection Results & Data ([facility]) Vital Signs (Past 12 Hours) Vital Signs Temp Pulse Resp BP BP Pulse Ox 07/03/20 07:27 36.8 C 93 H 16 139/65 94 07/02/20 23:18 37.7 C H 103 H 16 148/70 H 90 PG Care Time/CCT Total # of Minutes Spent Total Time Spent with Patient: Total time spent is greater than 50% in coordination of care (as documented) at patient's floor/unit and/or counseling patient: Coding Level of Care Code 28759 Subseq Hosp Care Lvl 2 Diagnoses Clear cell carcinoma of right kidney C64.1 Perinephric hematoma S37.019A
--- NOTE | 2020-07-03 13:35 | Discharge Summary ---
Date of Service July 03, 2020 Admission HPI Per Admitting Provider This is a pleasant 74 yo male with h/o RIGHT partial nephrectomy due to renal cell carcinoma this past month. Patient felt well up until 1 week ago, where he began having intermittent subjective fevers, chills, and fatigue. These would come and go. He reports his worst fever was in the 99 range. He denies any other associated symptoms such as dysuria, cough, sputum production, headache,diarrhea, dizziness. Admission Exam Per Admitting Provider Constitutional: WD/WN, vitals as above well developed Eyes: PERRL, conjunctivae normal, anicteric sclerae ENMT: external ear and nose normal, oropharynx normal Neck: trachea midline, no thyromegaly Respiratory: normal respiratory effort, lungs clear to auscultation Cardiovascular: RRR, no murmur, no edema Gastrointestinal (Abdomen): normal bowel sounds, soft, nontender, no hepatosplenomegaly small laparoscopic scars on abdomen Musculoskeletal: no cyanosis or clubbing, extremities motor strength 5/5 Skin: no rashes, warm and dry Neurologic: PERRL, EOMI, accommodation nl, no face palsy, no dysarthria Psychiatric: A+Ox3, euthymic affect Lymphatic: no cervical or axillary lymphadenopathy Principal Diagnosis perinephric hematoma Discharge Exam Constitutional WD/WN, vitals as above Eyes PERRL, conjunctivae normal, anicteric sclerae ENMT external ear and nose normal, oropharynx normal Neck normal visual inspection Respiratory normal respiratory effort, lungs clear to auscultation Cardiovascular RRR, no murmur, no edema Gastrointestinal (Abdomen) normal bowel sounds, soft, nontender, no hepatosplenomegaly - hard abdomen on the right side, soft w/o guarding Discharge Data Allergies Allergy/AdvReac Type Severity Reaction Status Date / Time No Known Drug Allergies Allergy Verified 06/29/20 17:06 Consultations 06/29/20 17:49 ED Decision to Admit Stat Ordered Studies 06/29/20 15:51 CT abd pelvis wo con Stat 07/03/20 12:50 CT abd pelvis wo con Routine Hospital Course (1) Perinephric hematoma: 74-year-old man status post recent right partial nephrectomy secondary to renal cell carcinoma presenting with intermittent subjective fevers, chills, and fatigue denying other constitutional symptoms, diagnosed with perinephric hematoma. Perinephric hematoma Patient with recent history approximately 1-month-ago right partial nephrectomy secondary to renal cell carcinoma follows with urology as an outpatient. Patient has had a one-week history of subjective fevers, chills and fatigue. Presented to the emergency department and was evaluated, imaging demonstrated a perinephric mass, thought to be a hematoma. 5 days oral antibiotics after D/C - Hgb as low as 7 stable, repeat imaging showed stable size - Recheck H&H in 1-2 days Urology consulted -Recommending antibiotics and fluids -We will need follow-up imaging in 4 weeks. - urine no growth final, blood no growth @ 48 H Acute on chronic kidney injury Patient with a history of chronic kidney disease follows with urology and nephrology as an outpatient. Presented to the emergency department with a creatinine of 2.4, from review of records it appears as if this baseline creatinine is around 1.3 prior to partial nephrectomy, now appears to be around 1.8. Patient has been receiving gentle fluid hydration, creatinine will be monitored on daily basis if significant derangement develops will consider consulting nephrology. -Cr. elevated by stable - 2.38->2.18->2.43 -> 2.61-> 2.6 - recheck bmp late this week or early next week -Avoid nephrotoxins - encourage increased PO intake as outpatient History of clear cell carcinoma of the right kidney Follows outpatient with urology, and nephrology, recent partial nephrectomy, see above. Hypertension History of, well-controlled BP -continue to monitor for now Diabetes A1c at goal Hypercholesterolemia Continue home meds Hypercalcemia History of, trend CMP every 3 day. (2) Postoperative hematoma: Total Time Total Time Spent Total Time Spent (In Minutes): <30 Discharge Plan Discharge Items Patient Disposition: Home - Self-Care Reason For Visit: KIDNEY Discharge Diagnosis: Perinephric hematoma Activity: Per Instructions section Non-emergency contact: Primary Care Provider and Urologist Call non-emergency contact if: your symptoms worsen Follow-up/Referrals: Ralph Figueroa [Primary Care Provider] - Diet: Regular Addtl Attending Provider Instructions: Collection of blood (hematoma) You have a collection of blood that developed after you had a procedure to remove part of your kidney. Your blood counts have been low and decreasing as you were in the hospital. We will want you to get evaluated if you are having symptoms of weakness, feeling like you are going to pass out or feeling dizzy when you stand up. You will need to follow up with your primary care doctor to further evaluate your low blood counts (anemia). Kidney disease You had worsening of your kidney function and we had been giving you fluid to treat this, with some improvement. We will want for you to get labs to follow this up and ensure that your kidney function continues to improve after leaving the hospital. It will be important for you to continue to drink plenty of fluids outside of the hospital. Infection You had fever and we were treating you with IV antibiotics and we transitioned you to oral antibiotics to continue as you go home. If you are developing fevers we will want to have you call or come in. Pending Studies at Discharge: Yes Studies:: blood culture no growth at 48 hours Stand-Alone Forms: [facility], Smoking Cessation Medications and DC Order Prescriptions: New cefdinir 300 mg capsule 300 mg PO DAILY 5 Days Qty: 5 RF: 0 Continued atorvastatin 20 mg tablet 20 mg PO QAM RF: 0 lisinopril 40 mg tablet 40 mg PO QPM RF: 0 omega-3 fatty acids [Fish Oil Concentrate] 1,000 mg capsule 1,000 mg PO BID RF: 0 metformin 500 mg tablet 1,000 mg PO BID RF: 0 cholecalciferol (vitamin D3) 50 mcg (2,000 unit) capsule 2,000 unit PO QAM RF: 0 amlodipine 5 mg tablet 5 mg PO QPM RF: 0 calcium carbonate [Calcium 500] 500 mg calcium (1,250 mg) Tablet 500 mg PO QAM RF: 0 dutasteride 0.5 mg capsule 0.5 mg PO DAILY RF: 0 Glucosamine Chondroitin 550-30-1 mg Capsule 1 cap PO BID RF: 0 tamsulosin 0.4 mg capsule 0.4 mg PO DAILY RF: 0 Discharge Orders: Discharge Order (Routine); Ordered 07/03/20 Ordered By: Doug Baig/Other Patient Handouts: ED Hematoma Admission Data Admit Date/Time: 06/29/20 18:09 Attending Provider: Dutch Cervantes Admit Provider: Reggie Solomon Primary Care Provider: Ralph Figueroa Other Providers: Reggie Solomon ; Wu Mack Other Interventions: Discharge Summary Assessment (RN) Last Done: 07/03/20 14:59 Supervising Physician Co-Signing Physician Notes I personally examined the patient and verified all burleson points of history and exam, discussed case, and agree with decision making with Dr Christian feeling ok overall fairly good really wants to go home. d/w his lithography contact worker who asked we repeat CT prior to discharge, she will be seeing him in f/u as well vitals noted nad heent nc at mmm breathing unlabored no accessory muscles good effort skin no rashes no pallor or icterus perinephric hematoma -stable overall. suspect Hgb in a current baseline range w some lab variation and dilution effect - CT stable and pt feeling well/looking well. f/u as outpt, f/u CBC, finish abx. acute renal failure - baseline Cr now appearing around 1.8, currently 2.5 and slowly improving. tolerating PO fluids well. outpt f/u w nephro in near future otherwise as above, stable for home - outpt f/u nephro and urology Resident Activity Tracking Resident Involvement: Resident Care Provided Care Provided: Adult Hospital Medicine CBC Results Results Complete Blood Count Results: RBC 2.33 M/uL (4.7-6.1) L 07/03/20 WBC 18.53 K/uL (4.8-10.8) H 07/03/20 Hgb 7.0 g/dL (14.0-18.0) L 07/03/20 Hct 21.4 % (42-52) L 07/03/20 Plt Count 415 K/uL (130-400) H 07/03/20 Chemistry (BMP) Results BMP Results: Sodium 138 mmol/L (136-145) 07/03/20 Potassium 4.3 mmol/L (3.5-5.1) 07/03/20 Chloride 107 mmol/L (98-107) 07/03/20 BUN 25 mg/dl (7-18) H 07/03/20 Creatinine 2.53 mg/dl (0.6-1.4) H 07/03/20 Glucose 122 mg/dl (70-99) H 07/03/20
--- NOTE | 2020-07-03 13:44 | CT Scan Report ---
CT SCAN OF THE ABDOMEN AND PELVIS WITHOUT CONTRAST CLINICAL HISTORY: Perinephric hematoma COMPARISON STUDY: 06/29/2020 TECHNIQUE: CT scan of the abdomen and pelvis was performed from the lung bases to the proximal femurs . Images are reviewed in the axial, sagittal, and coronal planes. IV contrast was not administered fo r this examination. A dose lowering technique was utilized adhering to the principles of ALARA. CT DOSE: 377.29 mGy.cm FINDINGS: Lower chest: There are trace bilateral pleural effusions with basilar atelectatic changes. There is a small pericardial effusion. Liver: The unenhanced liver is normal in size, contour, and attenuation. There is no intrahepatic carla iary ductal dilatation. Gallbladder: Unremarkable. Spleen: Normal in size and attenuation. Pancreas: Unremarkable. Adrenal glands: Unremarkable. Kidneys: There are multiple large right renal cysts measuring up to 7.4 cm in diameter. 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 The patient is status post a segmental right renal resection. Th ere is a right-sided perinephric hematoma measuring 15 x 10 x 9 cm. This is similar in size with no g reater than 1 cm increase in size Bowel: There are no transition zones to indicate bowel obstruction. Peritoneum: There is no intraperitoneal free air or abdominal ascites. Again evident is a left inguin al hernia. This no longer contains a loop of sigmoid. Vasculature: The abdominal aorta is normal in course and caliber. Adenopathy: None. Pelvic viscera: There is mild bladder wall thickening. There is prostatomegaly. Skeletal structures: No destructive osseous lesions are seen. IMPRESSION: 1. Persistent large right sided perinephric hematoma measuring 15 x 10 x 9 cm. This is stable to no g reater than 1 cm larger than on the prior study 2. No evidence of bowel obstruction. No evidence of free air 3. Colonic diverticulosis. No evidence of acute diverticulitis 4. 7 mm left renal angiomyolipoma 5. Prostatomegaly 6. Trace bilateral pleural effusions with basilar atelectasis ACT 112: Negative or not required by law. Electronically signed by: Reinaldo Ferguson M.D. 07/03/2020 1:43 PM
--- NOTE | 2020-07-03 19:38 | Billing Data ---
Date of Service July 03, 2020 Coding Level of Care Code D/C Day Management <30 mins
== END 2020-07-03 15:55 | disposition home or self-care (01) | DRG 920 ==
LOC: ED 14:47 → 3W 18:09 → SUATTDRO 18:09 → 3W 18:55

== ENCOUNTER 2024-07-31 23:39 | Observation (INO) ==
--- NOTE | 2024-08-01 01:03 | Emergency Department Note ---
Impression & Plan Mental status change resolved admit to the [facility] ED Provider Note NAME: JULIA ELLIS Jr AGE: 78 SEX: Male INFORMANT: Patient ED PROVIDER(S): Jeannie Arthur DO CHIEF COMPLAINT: episode of altered mental status PLAN: Disposition: admit to the [facility] MEDICAL DECISION MAKING: this is a 78-year-old male patient presents to the emergency department after 2 episodes of dizziness, diaphoresis, shakiness, pallor, and altered mental status. Patient's mental status returned to normal after these 2 episodes. Like this in the past. Laboratory studies revealed no leukocytosis. Hemoglobin was 13.3, hematocrit 39.1. BUN of 37 and creatinine of 3.05 which is slightly higher than normal. Glucose of 130. Transaminases are slightly elevated. Patient went for CT scan of the brain which was unremarkable. Patient was observed on the air sampling and monitoring and had no obvious cardiac arrhythmias. EKG was normal. Care/management discussed with: grain merchandising manager and the [facility] Triage Nursing notes: reviewed and agree with them. Vital Signs: reviewed and remarkable for hypertension Additional History obtained from: patient's and patient's adult son who witnessed the events. Chronic Medical/Social Conditions affecting care: none Prior/ Outside/ External records reviewed: none Differential Diagnosis: TIA, cardiac dysrhythmia, seizure, CVA, near syncope Diagnostics, independently interpreted by me: ECG: normal sinus rhythm at a rate of 70 with first-degree AV block, right bundle branch block and a left anterior fascicular block consistent with bifascicular block. This is new finding compared to an EKG from October 2022. There are no obvious ST segment elevation or ectopic beats. Cardiac Monitoring: Normal sinus rhythm at a rate of 76 Imaging studies: CT scan of the brain: As per stat rad HPI: 78 year old Male arrives for evaluation of episode of altered mental status. Patient had 2 separate episodes at home where he became quite dizzy, diaphoretic shaking and seemed confused. Patient's son witnessed both of these episodes. They were unusual for him. First episode lasted for approximately 10 seconds and the second episode lasted for approximately 5 seconds. PAST MEDICAL HISTORY: See Below, PAST SURGICAL HISTORY: See Below, SOCIAL HISTORY: See Below, HOME MEDICATIONS: See list ALLERGIES: none VITALS: See Below PHYSICAL EXAMINATION: HEENT: Head - normocephalic and atraumatic. Pupils are equal, round, and reactive to light. Extraocular eye muscles are intact and sclera are anicteric. Ears - bilaterally patent canals with noninjected tympanic membranes and no evidence of hemotympanum. Nose - moist nasal mucosa without discharge. Mouth - moist buccal mucosa. Oropharynx is nonerythematous and there is no tonsillar exudate or edema noted. Neck: Supple; no JVD, nuchal rigidity, cervical lymphadenopathy, or auscultated bruits. Heart: Regular rate and rhythm. There is a normal S1 and S2 with no murmurs, clicks, or gallops appreciated. Lungs: Clear to auscultation bilaterally with no wheezes, rales, or rhonchi. Abdomen: Soft, completely nontender, nondistended, with good bowel sounds. There are no palpable pulsatile masses or hepatosplenomegaly. There is no guarding, rigidity, or rebound noted. Extremities: No evidence of cyanosis, clubbing, or edema. There are easily palpable peripheral pulses. Neuro:The patient is awake and alert, oriented to day, time, and place. Muscle strength is 5/5 in all 4 extremities. The patient has equal rn private duty strength and equal pedal push and pull. There are no cerebellar signs. Cranial nerves II through XII are grossly intact. Emergency department course: The patient was evaluated in room B-3. A complete history and physical was performed. An IV lock was initiated and labs were drawn as above. An order was placed for continuous cardiac monitoring. The patient was in a normal sinus rhythm at a rate of 76. A twelve-lead EKG was obtained as described above. Patient went for CT scan of the brain as described above. Patient had no further episodes while here in the emergency department. He remained hemodynamically stable. Past Med/Surg History Problem List (Updated 08/01/24 @ 07:12 by Jeannie Arthur DO) Mental status change resolved (Acute) Recurrent episodes of unresponsiveness LVH (left ventricular hypertrophy) Acute kidney injury Proteinuria Hypercalcemia (Chronic) Nodular prostate with urinary obstruction (Acute) Hypertension (Acute) Renal mass Angiomyolipoma Diabetes Reducible left inguinal hernia Encounter for pre-operative examination 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 AV block Preoperative cardiovascular examination Clear cell carcinoma of right kidney Postoperative hematoma (Acute) Perinephric hematoma Left inguinal hernia Pseudoaneurysm following procedure Abnormal ECG Hyperkalemia Metabolic acidosis hx Chronic kidney disease, stage 4 (severe) Vitamin D deficiency Iron deficiency anemia Stage 3b chronic kidney disease H/O bilateral inguinal hernia repair (10/09/20) Bilateral Laparoscopic Inguinal Hernia Repair with Mesh Dr. Fisher 10/09/2020 Hypercholesterolemia Per records Aortic insufficiency Moderate per 2017 ECHO Anemia of chronic disease Acute kidney injury hx-2 years ago BPH with obstruction/lower urinary tract symptoms Medical History DM type 2 (diabetes mellitus, type 2) NIDDM- well controlled and stable, currently on metformin History of skin cancer Melanoma- removed - follows with derm routinely Hearing deficit BL [place]- wears hearing aids bilaterally Hyperlipemia HTN (hypertension) Surgical History History of tooth extraction Hx of partial nephrectomy right - mass removed History of testicular mass excision History of prostate biopsy History of tonsillectomy and adenoidectomy History of vasectomy History of colonoscopy Family History Son Schizophrenia Sister Cancer Mother Heart disease Other No family history of adverse response to anesthesia Social History Smoking Status: Never smoker Second Hand Exposure: No; Do You Dip or Chew Tobacco: No; Hx Alcohol Use: Yes Alcohol type: wine Hx Substance Use: No Preferred Language: Hebrew Communication Ability: Effective Visual Impairment: Limited Hearing Ability: Use of Hearing Aid Manager Hospitality Required: No Beliefs That Will Affect Care: None marital status: Current Living Situation: Spouse current occupational status: retired How many Children do You have: 4 Feels Safe at Home: Yes Diet: regular caffeine: No Dental Care, Regularly: Yes Physical Activity Frequency: Does not Exercise Do you think of yourself as: straight/heterosexual Gender Identity: Male Assistive Devices: Glasses Allergies Allergies Allergy/AdvReac Type Severity Reaction Status Date / Time No Known Drug Allergies Allergy Verified 06/20/24 15:25 Home Meds Home Medications Medication Instructions Recorded Confirmed fluticasone propionate 50 1 spray intranasal DAILY PRN 10/30/22 08/01/24 mcg/actuation nasal Congestion spray,suspension Previous Rx's Medication Instructions Recorded amlodipine 5 mg tablet 5 mg PO DAILY #90 tabs 04/26/24 ascorbic acid (vitamin C) 500 mg 500 mg PO QAM #90 caps 04/26/24 capsule atorvastatin 20 mg tablet 20 mg PO QAM #90 tabs 04/26/24 carvedilol 25 mg tablet 25 mg PO BID #180 tabs 04/26/24 cholecalciferol (vitamin D3) 50 50 mcg PO QAM #90 caps 04/26/24 mcg (2,000 unit) capsule ferrous sulfate 325 mg (65 mg 325 mg PO QAM #90 tabs 04/26/24 iron) tablet (Feosol) lisinopril 20 mg tablet 20 mg PO HS #90 tabs 04/26/24 empagliflozin 25 mg tablet 12.5 mg (1/2 x 25 mg) PO DAILY #30 04/27/24 tabs sodium zirconium cyclosilicate 10 10 g PO DAILY #30 ea 04/27/24 gram oral powder packet (Lokelma) sodium bicarbonate 650 mg tablet 650 mg PO BID #60 tabs 06/29/24 Results & Data (ED) Vital Signs Vital Signs - 24 hr 07/31/24 23:43 07/31/24 23:54 07/31/24 23:56 Temperature 36.6 C Temperature Source Temporal Artery Scan Pulse Rate 75 77 Pulse Rate from SpO2 Sensor Respiratory Rate 20 Blood Pressure 191/86 H 184/87 H Blood Pressure Mean 121 111 Pulse Oximetry 95 Oxygen Delivery Method Room Air Sepsis Recent Fever Within 48 Hours No Sepsis New/Unexplained Change in Mental Status No Sepsis Action Taken by Nursing No Action Required 08/01/24 00:09 08/01/24 00:21 08/01/24 00:30 Temperature Temperature Source Pulse Rate 76 76 Pulse Rate from SpO2 Sensor 76 76 Respiratory Rate 16 25 H Blood Pressure 178/91 H Blood Pressure Mean 111 Pulse Oximetry 97 96 Oxygen Delivery Method Sepsis Recent Fever Within 48 Hours Sepsis New/Unexplained Change in Mental Status Sepsis Action Taken by Nursing 08/01/24 00:30 08/01/24 00:53 08/01/24 01:00 Temperature Temperature Source Pulse Rate Pulse Rate from SpO2 Sensor Respiratory Rate Blood Pressure 178/91 H 189/91 H 175/99 H Blood Pressure Mean 111 105 120 Pulse Oximetry Oxygen Delivery Method Sepsis Recent Fever Within 48 Hours Sepsis New/Unexplained Change in Mental Status Sepsis Action Taken by Nursing 08/01/24 01:00 08/01/24 01:00 08/01/24 01:00 Temperature Temperature Source Pulse Rate 76 Pulse Rate from SpO2 Sensor 76 Respiratory Rate 19 Blood Pressure 175/99 H 175/99 H Blood Pressure Mean 120 120 Pulse Oximetry 94 Oxygen Delivery Method Sepsis Recent Fever Within 48 Hours Sepsis New/Unexplained Change in Mental Status Sepsis Action Taken by Nursing 08/01/24 01:18 08/01/24 01:30 08/01/24 01:30 Temperature Temperature Source Pulse Rate 72 Pulse Rate from SpO2 Sensor 70 Respiratory Rate 14 Blood Pressure 161/91 H 161/91 H Blood Pressure Mean 114 114 Pulse Oximetry 93 Oxygen Delivery Method Sepsis Recent Fever Within 48 Hours Sepsis New/Unexplained Change in Mental Status Sepsis Action Taken by Nursing 08/01/24 01:30 08/01/24 02:43 08/01/24 03:00 Temperature Temperature Source Pulse Rate 77 78 Pulse Rate from SpO2 Sensor Respiratory Rate 19 16 Blood Pressure 161/91 H 178/91 H 169/89 H Blood Pressure Mean 114 114 123 Pulse Oximetry 95 95 Oxygen Delivery Method Room Air Sepsis Recent Fever Within 48 Hours Sepsis New/Unexplained Change in Mental Status Sepsis Action Taken by Nursing Laboratory Data 08/01/24 00:10 08/01/24 00:10 Lab Results 08/01/24 08/01/24 Range/Units 00:10 01:34 WBC 11.86 H (4.8-10.8) K/ul RBC 4.21 L (4.70-6.10) M/uL Hgb 13.3 L (14.0-18.0) g/dl Hct 39.1 L (42.0-52.0) % MCV 92.9 (80.0-100.0) fL MCH 31.6 (25.0-34.0) pg MCHC 34.0 (32.0-36.0) g/dL RDW Std Deviation 44.0 (36.4-46.3) fL RDW Coeff of Geri 12.9 (11.5-14.5) % Plt Count 179 (130-400) K/uL MPV 9.6 (9.4-12.4) fL Immature Gran % (Auto) 0.4 % Neut % (Auto) 69.6 % Lymph % (Auto) 16.3 % Gillespie % (Auto) 10.2 % Eos % (Auto) 3.1 % Baso % (Auto) 0.4 % Neut # (Auto) 8.25 H (1.40-6.50) K/uL Lymph # (Auto) 1.93 (1.20-3.40) K/uL Gillespie # (Auto) 1.21 H (0.11-0.59) K/uL Eos # (Auto) 0.37 (0.00-0.50) K/uL Baso # (Auto) 0.05 (0.00-0.20) K/uL Immature Gran # (Auto) 0.05 (0.01-0.20) K/uL Sodium 140 (136-145) mmol/L Potassium 4.0 (3.5-5.1) mmol/L Chloride 109 H (98-107) mmol/L Carbon Dioxide 25 (21-32) mmol/L Anion Gap 6 (3-11) BUN 37 H (6-23) mg/dl Creatinine 3.05 H (0.6-1.4) mg/dl Est Cr Clr Drug Dosing 19.9 ml/min eGFR 20.08 BUN/Creatinine Ratio 12.1 (10-20) Glucose 130 H (70-99(Fasting)) mg/dl Calcium 8.7 (8.6-10.3) mg/dl Magnesium 2.2 (1.7-2.4) mg/dl Total Bilirubin 0.5 (0.2-1.0) mg/dl AST 54 H (13-39) U/L ALT 62 H (7-52) U/L Alkaline Phosphatase 60 (34-104) U/L Troponin I High Sens 12.6 (0-20) pg/ml Total Protein 6.3 (6.0-8.3) gm/dl Albumin 3.7 (3.4-5.0) gm/dl Globulin 2.6 (2.5-4.0) gm/dl Albumin/Globulin Ratio 1.4 (0.9-2) TSH 2.807 (0.300-4.500) uIu/ml Administered Medications Discontinued Medications Amlodipine Besylate (Amlodipine Besylate 5 Mg Tab) 5 mg PO NOW STA Stop: 08/01/24 03:13 Last Admin: 08/01/24 03:30 Dose: 5 mg Documented By: MARTA Carvedilol (Carvedilol 25 Mg Tab) 25 mg PO NOW STA Stop: 08/01/24 03:14 Last Admin: 08/01/24 03:30 Dose: 25 mg Documented By: MARTA Lisinopril (Lisinopril 20 Mg Tab) 20 mg PO NOW STA Stop: 08/01/24 03:11 Last Admin: 08/01/24 03:30 Dose: 20 mg Documented By: MARTA Sodium Bicarbonate (Sodium Bicarbonate 650 Mg Tab) 650 mg PO NOW STA Stop: 08/01/24 03:11 Last Admin: 08/01/24 03:30 Dose: 650 mg Documented By: MARTA Imaging Data Radiologist's Impression: Head CT 08/01/24 00:39 Exam(s): CT HEAD Without Contrast EXAM: CT Head Without Intravenous Contrast CLINICAL HISTORY: Reason for exam: episode of altered ms. TECHNIQUE: Axial computed tomography images of the head/brain without intravenous contrast. CTDI is 37.12 mGy and DLP is 625.8 mGy-cm. Automated exposure control was utilized for the study. A dose lowering technique was utilized adhering to the principles of ALARA. COMPARISON: No relevant prior studies available. FINDINGS: No acute intracranial hemorrhage. No midline shift or mass effect. The territorial yusuf-white matter differentiation is maintained throughout. Age-related cerebral volume loss. Periventricular and subcortical white matter hypoattenuation, consistent with chronic microangiopathy. The visualized orbits appear grossly unremarkable. The calvarium is intact. The visualized paranasal sinuses and mastoid air cells are grossly clear. IMPRESSION: No acute intracranial hemorrhage, midline shift, or mass effect. Electronically signed by: Chang Austin MD 08/01/24 01:09 AM Discharge Plan Visit Data Chief Complaint: TIA Symptoms Stated Complaint: LIGHT HEADED, BREATHING WEIRD, MEMORY LOSS ED Provider: Jeannie Arthur Discharge Problem: Mental status change resolved Patient Disposition: Admitted As Inpatient Discharge Instructions Interventions: ED Discharge Assessment Last Done: 08/01/24 04:36
[2024-08-01 01:07] LABS: Albumin Globulin Ratio 1.4 (0.9-2); Albumin Level 3.7 gm/dl (3.4-5.0); BUN Creatinine Ratio 12.1 (10-20); Bilirubin,Total 0.5 mg/dl (0.2-1.0); Calcium 8.7 mg/dl (8.6-10.3); Creatinine Clr Calc Pharmacy 19.9 ml/min; Globulin 2.6 gm/dl (2.5-4.0); Magnesium 2.2 mg/dl (1.7-2.4); Total Protein 6.3 gm/dl (6.0-8.3)
[2024-08-01 01:09] LABS: Basophils # (auto) 0.05 K/uL (0.00-0.20); Basophils % (auto) 0.4 %; Eosinophils # (auto) 0.37 K/uL (0.00-0.50); Eosinophils % (auto) 3.1 %; Hematocrit (blood only) 39.1 % (42.0-52.0); Hemoglobin 13.3 g/dl (14.0-18.0); Immature Granulocytes # (auto) 0.05 K/uL (0.01-0.20); Immature Granulocytes % (auto) 0.4 %; Lymphocytes # (auto) 1.93 K/uL (1.20-3.40); Lymphocytes % (auto) 16.3 %; Mean Corpuscular Hemoglobin 31.6 pg (25.0-34.0); Mean Corpuscular Volume 92.9 fL (80.0-100.0); Mean Platelet Volume 9.6 fL (9.4-12.4); Monocytes # (auto) 1.21 K/uL (0.11-0.59); Monocytes % (auto) 10.2 %; Neutrophils # (auto) 8.25 K/uL (1.40-6.50); Neutrophils % (auto) 69.6 %; Platelet Count 179 K/uL (130-400); RDW Coefficient of Variation 12.9 % (11.5-14.5); Red Blood Count 4.21 M/uL (4.70-6.10); White Blood Count 11.86 K/ul (4.8-10.8)
--- NOTE | 2024-08-01 01:10 | CT Scan Report ---
Exam(s): CT HEAD Without Contrast EXAM: CT Head Without Intravenous Contrast CLINICAL HISTORY: Reason for exam: episode of altered ms. TECHNIQUE: Axial computed tomography images of the head/brain without intravenous contrast. CTDI is 37.12 mGy and DLP is 625.8 mGy-cm. Automated exposure control was utilized for the study. A dose lowering technique was utilized adhering to the principles of ALARA. COMPARISON: No relevant prior studies available. FINDINGS: No acute intracranial hemorrhage. No midline shift or mass effect. The territorial yusuf-white matter differentiation is maintained throughout. Age-related cerebral volume loss. Periventricular and subcortical white matter hypoattenuation, consistent with chronic microangiopathy. The visualized orbits appear grossly unremarkable. The calvarium is intact. The visualized paranasal sinuses and mastoid air cells are grossly clear. IMPRESSION: No acute intracranial hemorrhage, midline shift, or mass effect. Electronically signed by: Chang Austin MD 08/01/24 01:09 AM
[2024-08-01 01:22] LABS: Thyroid Stimulating Hormone 2.807 uIu/ml (0.300-4.500)
--- NOTE | 2024-08-01 03:17 | History & Physical Report ---
Date of Service August 01, 2024 Assessment & Plan (1) Recurrent episodes of unresponsiveness: Plan: Etiology of episodes unclear at this time. Consider arrhythmia, possible seizure, possible HTN urgency/emergency? Telemetry reviewed with occasional PVCs. -Transfer to medical with telemetry -Check UA -Repeat labs, LFTs in AM -BP control (2) Hypertension: Plan: Blood pressure elevated in the ER. Patient reports adequate control of his blood pressure at home. He is compliant with his medications - no missed doses -Continue Lisinopril 20mg po qHS - PM dose given in ER -Continue Carvedilol 25mg po BID - PM dose given in ER -Continue Amlodipine 5mg po qHS - PM dose given in ER -Monitor BP (3) Chronic kidney disease, stage 4 (severe): Plan: Creatinine slightly increased from baseline - 3.05 today. Patient reports adequate UOP without complaints. Electrolytes are acceptable. K=4, HCO3=25 with no anion gap -Continue Lokelma 10gm PO daily -Continue Sodium bicarbonate 650mg po BID - PM dose given in ER -Repeat chemistry in AM Plan Chronic Medical Conditions: Hyperlipidemia - chronic, stable -Continue Atorvastatin History of Present Illness Chief Complaint: unresponsive episodes Primary Care Provider: Ralph Figueroa Tio Monteiro is a pleasant 78yo male with history of HTN, HLP, DM presenting from home after two unresponsive episodes. Patient was watching football this evening with his son. He recalls becoming slightly dizzy then his son noted that he became pale and diaphoretic, his arms were shaking and he was briefly unresponsive to verbal stimuli. This episode occurred around 10:15 and lasted approximately 10 seconds. Patient recovered and was doing ok. At around 10:45 he had a second episode - shaking, pale and diaphoretic and briefly unresponsive which again lasted several seconds. He again reports feeling slightly dizzy before the episode. After the episode he states he "felt like my BP was high" Patient denies - chest pain or heaviness, palpitations, cough, SOB or incontinence. Patient reports some intermittent nausea ongoing for the last month. Also notes that his blood pressure has been very high since being in the ER - typically runs 130-140/60. Upon arrival to the ER hiss BP was 191/86. He is compliant with his medications - no missed doses, no recent medication changes, no new OTC medications. Allergies Allergy/AdvReac Type Severity Reaction Status Date / Time No Known Drug Allergies Allergy Verified 06/20/24 15:25 Home Medications Medication Instructions Recorded Confirmed Type fluticasone propionate 50 1 spray intranasal DAILY PRN 10/30/22 08/01/24 History mcg/actuation nasal Congestion spray,suspension amlodipine 5 mg tablet 5 mg PO DAILY #90 tabs 04/26/24 08/01/24 Rx ascorbic acid (vitamin C) 500 mg 500 mg PO QAM #90 caps 04/26/24 08/01/24 Rx capsule atorvastatin 20 mg tablet 20 mg PO QAM #90 tabs 04/26/24 08/01/24 Rx carvedilol 25 mg tablet 25 mg PO BID #180 tabs 04/26/24 08/01/24 Rx cholecalciferol (vitamin D3) 50 50 mcg PO QAM #90 caps 04/26/24 08/01/24 Rx mcg (2,000 unit) capsule ferrous sulfate 325 mg (65 mg 325 mg PO QAM #90 tabs 04/26/24 08/01/24 Rx iron) tablet (Feosol) lisinopril 20 mg tablet 20 mg PO HS #90 tabs 04/26/24 08/01/24 Rx empagliflozin 25 mg tablet 12.5 mg (1/2 x 25 mg) PO DAILY #30 04/27/24 08/01/24 Rx tabs sodium zirconium cyclosilicate 10 10 g PO DAILY #30 ea 04/27/24 08/01/24 Rx gram oral powder packet (Lokelma) sodium bicarbonate 650 mg tablet 650 mg PO BID #60 tabs 06/29/24 08/01/24 Rx Past Med/Surg History Problem List (Updated 08/01/24 @ 04:04 by Darcie Rainey DO) Recurrent episodes of unresponsiveness LVH (left ventricular hypertrophy) Acute kidney injury Proteinuria Hypercalcemia (Chronic) Nodular prostate with urinary obstruction (Acute) Hypertension (Acute) Renal mass Angiomyolipoma Diabetes Reducible left inguinal hernia Encounter for pre-operative examination 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 AV block Preoperative cardiovascular examination Clear cell carcinoma of right kidney Postoperative hematoma (Acute) Perinephric hematoma Left inguinal hernia Pseudoaneurysm following procedure Abnormal ECG Hyperkalemia Metabolic acidosis hx Chronic kidney disease, stage 4 (severe) Vitamin D deficiency Iron deficiency anemia Stage 3b chronic kidney disease H/O bilateral inguinal hernia repair (12/23/20) Bilateral Laparoscopic Inguinal Hernia Repair with Mesh Dr. Fisher 10/09/2020 Hypercholesterolemia Per records Aortic insufficiency Moderate per 2017 ECHO Anemia of chronic disease Acute kidney injury hx-2 years ago BPH with obstruction/lower urinary tract symptoms Medical History DM type 2 (diabetes mellitus, type 2) NIDDM- well controlled and stable, currently on metformin History of skin cancer Melanoma- removed - follows with derm routinely Hearing deficit BL [place]- wears hearing aids bilaterally Hyperlipemia HTN (hypertension) Surgical History History of tooth extraction Hx of partial nephrectomy right - mass removed History of testicular mass excision History of prostate biopsy History of tonsillectomy and adenoidectomy History of vasectomy History of colonoscopy Family History Son Schizophrenia Sister Cancer Mother Heart disease Other No family history of adverse response to anesthesia Social History Smoking Status: Never smoker Second Hand Exposure: No; Do You Dip or Chew Tobacco: No; Hx Alcohol Use: Yes Alcohol type: wine Hx Substance Use: No Preferred Language: [place]an Communication Ability: Effective Visual Impairment: Limited Hearing Ability: Use of Hearing Aid Waterproof Material Folder Required: No Beliefs That Will Affect Care: None marital status: Current Living Situation: Spouse current occupational status: retired How many Children do You have: 4 Feels Safe at Home: Yes Diet: regular caffeine: No Dental Care, Regularly: Yes Physical Activity Frequency: Does not Exercise Do you think of yourself as: straight/heterosexual Gender Identity: Male Assistive Devices: Glasses and Hearing Aid - Bilateral Review of Systems Review of Systems: All systems reviewed & are unremarkable except as noted in HPI & below Physical Exam Physical Exam: General: patient resting comfortably, NAD, non-toxic in appearance, AA&O x 4 Skin: warm, dry, intact, no rashes or lesions HEENT: NC/AT, PERRL, EOMI, anicteric sclera, conjunctiva without injection, external ear normal to inspection and nontender, nares patent, moist mucus membranes, dentition intact, no oropharyngeal lesions, neck supple, trachea midline, no LAD, no thyromegaly, no JVD Heart: +S1/S2, regular, 2/6 SIERRA at 2nd right ICS Lungs: equal air entry bilaterally, no rales/rhonchi/wheezes Abd: +BS, soft, NT/ND, no masses/organomegaly/ascites Ext: warm, 2+ pulses in UE/LE bilaterally, no clubbing/cyanosis or edema Neuro: nonfocal, patient AA&O x 4, speech intact, no facial droop, moving all extremities on command with equal strength 5/5 Results & Data Results & Data Vital Signs (Past 12 Hours) Vital Signs Temp Pulse Resp BP Pulse Ox O2 Del Method 08/01/24 02:43 77 19 178/91 H 95 08/01/24 01:30 161/91 H 08/01/24 01:30 161/91 H 08/01/24 01:30 161/91 H 08/01/24 01:18 72 14 93 08/01/24 01:00 76 19 94 08/01/24 01:00 175/99 H 08/01/24 01:00 175/99 H 08/01/24 01:00 175/99 H 08/01/24 00:53 189/91 H 08/01/24 00:30 178/91 H 08/01/24 00:30 178/91 H 08/01/24 00:21 76 25 H 96 08/01/24 00:09 76 16 97 07/31/24 23:56 77 07/31/24 23:54 184/87 H 07/31/24 23:43 36.6 C 75 20 191/86 H 95 Room Air Laboratory Results Laboratory Results WBC 11.86 K/ul (4.8-10.8) H 08/01/24 00:10 RBC 4.21 M/uL (4.70-6.10) L 08/01/24 00:10 Hgb 13.3 g/dl (14.0-18.0) L 08/01/24 00:10 Hct 39.1 % (42.0-52.0) L 08/01/24 00:10 MCV 92.9 fL (80.0-100.0) 08/01/24 00:10 MCH 31.6 pg (25.0-34.0) 08/01/24 00:10 MCHC 34.0 g/dL (32.0-36.0) 08/01/24 00:10 RDW Std Deviation 44.0 fL (36.4-46.3) 08/01/24 00:10 RDW Coeff of Geri 12.9 % (11.5-14.5) 08/01/24 00:10 Plt Count 179 K/uL (130-400) 08/01/24 00:10 MPV 9.6 fL (9.4-12.4) 08/01/24 00:10 Immature Gran % (Auto) 0.4 % 08/01/24 00:10 Neut % (Auto) 69.6 % 08/01/24 00:10 Lymph % (Auto) 16.3 % 08/01/24 00:10 [place] % (Auto) 10.2 % 08/01/24 00:10 Eos % (Auto) 3.1 % 08/01/24 00:10 Baso % (Auto) 0.4 % 08/01/24 00:10 Neut # (Auto) 8.25 K/uL (1.40-6.50) H 08/01/24 00:10 Lymph # (Auto) 1.93 K/uL (1.20-3.40) 08/01/24 00:10 [place] # (Auto) 1.21 K/uL (0.11-0.59) H 08/01/24 00:10 Eos # (Auto) 0.37 K/uL (0.00-0.50) 08/01/24 00:10 Baso # (Auto) 0.05 K/uL (0.00-0.20) 08/01/24 00:10 Immature Gran # (Auto) 0.05 K/uL (0.01-0.20) 08/01/24 00:10 Sodium 140 mmol/L (136-145) 08/01/24 00:10 Potassium 4.0 mmol/L (3.5-5.1) 08/01/24 00:10 Chloride 109 mmol/L (98-107) H 08/01/24 00:10 Carbon Dioxide 25 mmol/L (21-32) 08/01/24 00:10 Anion Gap 6 (3-11) 08/01/24 00:10 BUN 37 mg/dl (6-23) H 08/01/24 00:10 Creatinine 3.05 mg/dl (0.6-1.4) H 08/01/24 00:10 Est Cr Clr Drug Dosing 19.9 ml/min 08/01/24 00:10 eGFR 20.08 08/01/24 00:10 BUN/Creatinine Ratio 12.1 (10-20) 08/01/24 00:10 Glucose 130 mg/dl (70-99(Fasting)) H 08/01/24 00:10 Calcium 8.7 mg/dl (8.6-10.3) 08/01/24 00:10 Magnesium 2.2 mg/dl (1.7-2.4) 08/01/24 00:10 Total Bilirubin 0.5 mg/dl (0.2-1.0) 08/01/24 00:10 AST 54 U/L (13-39) H 08/01/24 00:10 ALT 62 U/L (7-52) H 08/01/24 00:10 Alkaline Phosphatase 60 U/L (34-104) 08/01/24 00:10 Troponin I High Sens 12.6 pg/ml (0-20) 08/01/24 01:34 Total Protein 6.3 gm/dl (6.0-8.3) 08/01/24 00:10 Albumin 3.7 gm/dl (3.4-5.0) 08/01/24 00:10 Globulin 2.6 gm/dl (2.5-4.0) 08/01/24 00:10 Albumin/Globulin Ratio 1.4 (0.9-2) 08/01/24 00:10 TSH 2.807 uIu/ml (0.300-4.500) 08/01/24 00:[address] 08/01/24 00:39 Exam(s): CT HEAD Without Contrast EXAM: CT Head Without Intravenous Contrast CLINICAL HISTORY: Reason for exam: episode of altered ms. TECHNIQUE: Axial computed tomography images of the head/brain without intravenous contrast. CTDI is 37.12 mGy and DLP is 625.8 mGy-cm. Automated exposure control was utilized for the study. A dose lowering technique was utilized adhering to the principles of ALARA. COMPARISON: No relevant prior studies available. FINDINGS: No acute intracranial hemorrhage. No midline shift or mass effect. The territorial yusuf-white matter differentiation is maintained throughout. Age-related cerebral volume loss. Periventricular and subcortical white matter hypoattenuation, consistent with chronic microangiopathy. The visualized orbits appear grossly unremarkable. The calvarium is intact. The visualized paranasal sinuses and mastoid air cells are grossly clear. IMPRESSION: No acute intracranial hemorrhage, midline shift, or mass effect. Electronically signed by: Chang Austin MD 08/01/24 01:09 AM PG Care Time/CCT Total # of Minutes Spent Total Time Spent with Patient: Total time spent is greater than 50% in coordination of care (as documented) at patient's floor/unit and/or counseling patient: Coding Level of Care Code 70255 INT INP/OBS CARE 2/55MIN Diagnoses Recurrent episodes of unresponsiveness R40.4 Hypertension I10 Chronic kidney disease, stage 4 (severe) N18.4
[2024-08-01] MEDS: lisinopril 20 MG TAB PO STA (03:30)
[2024-08-01] MEDS: amLODIPine BESYLATE 5 MG TAB PO STA (03:30)
[2024-08-01] MEDS: carvediloL 25 MG TAB PO STA (03:30)
[2024-08-01] MEDS: SODIUM BICARBONATE 650 MG TAB PO STA (03:30)
[2024-08-01] MEDS ORDERED: ACETAMINOPHEN 325 MG TAB PO PRN (04:48)
--- OUTSIDE RECORDS SUMMARY | 2024-08-01 05:54 | External Medical Summary | Continuity of Care Document ---
Author Name Unknown Organization [facility] [address] Address [address] [place], [place] [id number] Care Team Providers Care Student Driving Instructor Name Role Phone Ralph Figueroa Primary Care Physician [phone] [id number] Date(s): 06/28/24 - 06/28/24 [facility] [address] [facility] [address] [facility] [address] [place], [place] [phone] Encounter Diagnosis Type 2 diabetes mellitus without complications(Final) - Type 2 diabetes mellitus with diabetic chronic kidney disease(Final) - Other forms of dyspnea(Final) - Hyperparathyroidism, unspecified(Final) - Essential (primary) hypertension(Final) - Discharge Disposition: Home or Self Care Attending Physician: MD Figueroa Michael P Referring Physician: MD Figueroa Michael P Allergies, Adverse Reactions, Alerts No Known Allergies Immunizations Given and Recorded Vaccine Date Status Refusal Reason zoster vaccine, inactivated 11/28/19 Given zoster vaccine, inactivated 1 06/06/19 Given influenza virus vaccine, inactivated 06/28/17 Give n influenza virus vaccine, inactivated 12/08/16 Give n influenza virus vaccine, inactivated 07/02/15 Give n influenza virus vaccine, inactivated 08/30/14 Give n influenza virus vaccine, inactivated 08/03/13 Give n tetanus/diphtheria/pertuss, acel (Tdap) 10/28/15 R ecorded tetanus/diphtheria/pertuss, acel (Tdap) 11/23/08 R ecorded pneumococcal 13-valent vaccine 08/30/14 Given zoster vaccine live 05/11/13 Recorded pneumococcal 23-valent vaccine 11/10/11 Given hepatitis A-hepatitis B vaccine 09/30/07 Recorded hepatitis A-hepatitis B vaccine 11/03/06 Recorded hepatitis A-hepatitis B vaccine 09/30/06 Recorded 1Result Comment: Suspension [id number] 11/28/21 Medications amLODIPine 5 mg oral tablet Start: 08/04/23 9:07:00 PM EDT, 1 tab, PO, Daily, Disp# 90 tab, Refills: 3, Pharmacy: [facility] #[id number] Start Date: 08/04/23 Status: Ordered atorvastatin 20 mg oral tablet Start: 11/13/22 5:23:00 PM EST, 1 tab, PO, Daily, Disp# 90 tab, Refills: 3, Pharmacy: [facility] #[id number] Start Date: 11/13/22 Status: Ordered carvedilol 25 mg oral tablet Start: 10/21/23 5:19:00 PM EST, 1 tab, PO, bid, Disp# 180 tab, Refills: 3, Pharmacy: [facility]/pharmacy #[id number] Start Date: 10/21/23 Stop Date: 10/15/24 Status: Ordered Flonase 50 mcg/inh nasal spray Start: 01/06/24 5:53:00 PM EDT, 2 spray, each nostril, bid, Disp# 16 g, Refills: 3, Pharmacy: [facility]/pharmacy #[id number] Start Date: 01/06/24 Status: Ordered furosemide 20 mg oral tablet Start: 06/17/23 9:31:00 AM EDT Start Date: 06/17/23 Status: Ordered Jardiance 10 mg oral tablet Start: 03/16/24 9:57:00 AM EDT, 1 tab, PO, Daily, Disp# 30 tab Start Date: 03/16/24 Status: Ordered Jardiance 25 mg oral tablet Start: 05/12/24 9:44:00 AM EDT, 1/2 tab, PO Start Date: 05/12/24 Status: Ordered lisinopril 20 mg oral tablet Start: 06/11/22 10:47:00 AM EDT, 1 tab Start Date: 06/11/22 Status: Ordered Lokelma 10 g oral powder for reconstitution Start: 06/17/23 9:31:00 AM EDT Start Date: 06/17/23 Status: Ordered ProAir HFA 90 mcg/inh inhalation aerosol Start: 06/17/23 10:26:00 AM EDT, 2 puff, inhaled, qid, Disp# 8.5 g, Refills: 3, as directed 15 minutes before exercise, PRN: as needed for wheezing, Pharmacy: [facility] #[id number] Start Date: 06/17/23 Stop Date: 06/11/24 Status: Ordered Slow Release Iron 160 mg (50 mg elemental iron) oral tablet, extended release Start: 07/09/20 2:25:00 PM EDT, 1 tab, PO, Daily, Disp# 30 tab, Refills: 3, may take with food to minimize abdominal discomfort in evening, Pharmacy: [id number] Start Date: 07/09/20 Status: Ordered sodium bicarbonate 650 mg oral tablet Start: 09/16/23 9:49:00 AM EST Start Date: 09/16/23 Status: Ordered Vitamin C 500 mg oral capsule Start: 07/09/20 2:25:00 PM EDT, 1 cap, PO, Daily, Disp# 30 cap, Refills: 3, take with the iron, [facility] Pharm[facility]: OTC is fine for this & the iron - but this is what I want, Pharmacy: [id number] Start Date: 07/09/20 Status: Ordered Problem List Condition Confirmation Course Effective Dates Status Health Status Informant Postoperative anemia Confirmed Active Left ankle pain Confirmed Active Aortic insufficiency 1 Confirmed 12/16/14 Active Bilateral inguinal hernia Confirmed Active CKD stage 4 due to type 2 diabetes mellitus Confirmed Active Diabetes Confirmed 12/08/16 Active Diarrhea Confirmed Active DiverticulOSIS Confirmed Active HENDRICKS (dyspnea on exertion) Confirmed Active Epididymal cyst Confirmed Active Right foot pain Confirmed Active Fracture of distal phalanx of right great toe Confirmed Active H/O Malignant melanoma Confirmed Active HEARING LOSS Confirmed Active Hemorrhoids Confirmed Active Hyperchloremia Confirmed Active Hyperkalemia Confirmed Active Hyperparathyroidism 2 Confirmed 04/17/13 Active HYPERTENSION Confirmed Active Inguinal hernia Confirmed Active Left knee pain Confirmed Active Left inguinal hernia Confirmed Active Leukocytosis Confirmed Active Left knee DJD Confirmed Active Melanocytic nevus Confirmed Active Mitral regurgitation Confirmed Active Hyperlipidemia Confirmed Active BPH associated with nocturia Confirmed Active Obesity Confirmed Active Health care maintenance Confirmed Active Prostate nodule Confirmed Active RECTAL PROLAPSE Confirmed Active Renal cell carcinoma Confirmed Active Scrotal mass Confirmed Active Senile hyperkeratosis Confirmed Active Skin lesion of back Confirmed Active Left ankle sprain Confirmed Active Meniscus tear 3 Confirmed 07/15/15 Active 1ECHO DONE 2017: CONCLUSIONS Normal LV size and systolic function with no regional wall motion abnormalities. Ejection fraction 60%. Normal LV global longitudinal strain (-20%). Mild concentric left ventricular hypertrophy. Grade I diastolic dysfunction of the left ventricle (impaired relaxation pattern). Normal RV size and function. Atria are normal. Mild to moderate, eccentric (posteriorly directed) aortic insufficiency. Thickened and calcified tip of the anterior MV leaflet. Mildly elevated pulmonary pressures (PA systolic pressure is 36 mmHg). Compared to the previous study performed 11/13/2011, there is no significant change. 2DX by ENDO Dr. LUIS ERWIN 3left knee Procedures Procedure Date Related Diagnosis Body Site Status Stress echocardiography 1 06/16/21 Completed testicular ultrasound 2 06/10/21 C ompleted Shave biopsy of skin 02/28/21 Comp leted Hernia repair 3 10/09/20 Completed Kidney, Right, Robotic lapar oscopic partial nephrectomy 06/06/20 Completed DXA BONE DENSITY STUDY 4 03/18/20 Completed Shave biopsy and cauterizati on of skin 5 09/28/18 Completed Bone density scan 6 01/17/18 Compl eted Examination of eye 7 12/28/17 Comp leted Eye examination 8 12/18/16 Complet ed Colonoscopy 9 08/25/16 Completed Femoral neck DEXA scan Z score 10 05/18/16 Completed Shave biopsy and cauterization of skin 11/26/15 Completed Shave biopsy and cauterizati on of skin 11 09/23/15 Completed no retinopathy-[facility] 11/27/13 Completed Cataract extraction, inserti on of intraocular lens and trabeculectomy 12 11/18/13 Completed bone density 05/24/13 Completed colonoscopy 02/16/04 Completed Prostate BX--2003--NEG 10/18/03 Co mpleted ECHO--02/2007, 01/200301/16/03 Comp leted Cyst scrotum --1988--BENIGH 10/18/88 Completed Vasectomy 10/18/88 Completed Tonsillectomy and adenoidectomy 10/18/[address] 1[address] Diagnostic ST segmet changes were seen 2Impression: 1. No testicular masses. 2. A 10 mm cyst at the tail of the right epididymis which appears to correspond to the patient's palpable abnormality. 3. Bilateral epididymal head cysts. 4. Bilateral small varicoceles. 3left inguinal hernia 4T-scores: AP Spine L1-L2 = -0.6, Femur Neck Left = -1.3, Femur Neck Right = - 1.4, Femur Total Left = -1.3, Femur Total Right = -1.2. Z-score = -0.4. 53 skin tags on back; 3 skin tags on left shoulder 6fracuture risk moderate Z Scorte -0.6 Repeat January 2020 LC 7no diabeti neuropathy 8no diabetic neuropathy either eye 9diverticulosis sigmoid colon /repeat 10 yrs 10Z score -0.2 fx risk low to moderate repeat May 2018 11right upper back 12BILATERAL Results Laboratory List Name Date Basic Metabolic Panel (BASIC METAB PANEL ) 06/28/24 Hemoglobin A1C (HEMOGLOBIN, A1C) 06/28/24 Lipid Profile (LIPOPROTEINS) 06/28/24 Most recent to oldest [Reference Range]: 1 eGFR CKD-EPI [>60 mL/min/1.73 m2] 18 mL/ min/1.73 m2 1 *LOW* (06/28/24:23 AM) Estimated Average Glucose 111 mg/dL 2 (06/28/24 AM) Non-HDL 65 mg/dL 3 (06/28/24 AM) Estimated CrCl 17.47 mL/min (06/28/24 12:15 PM) Anion Gap [5-14 mmol/L] 7 mmol/L (06/28/24 AM) BUN [7-20 mg/dL] 50 mg/dL *HI* (06/28/2423 AM) Ca [8.4-10.2 mg/dL] 8.4 mg/dL (06/28/24 11:23 AM) Chol/HDL 3 (06/28/24 AM) Chol [125-200 mg/dL] 100 mg/dL *LOW* (06/28/24 AM) Cl- [96-107 mmol/L] 111 mmol/L *HI* (06/28/24 AM) HCO3 [22-30 mmol/L] 17 mmol/L *LOW* (06/28/24 AM) Cret [0.70-1.30 mg/dL] 3.33 mg/dL *HI* (06/28/24 11:23 AM) HbA1c [4.0-6.0 %] 5.5 % (06/28/24 11: AM) Glu [74-106 mg/dL] 106 mg/dL (06/28/24 11:23 AM) HDL [>35 mg/dL] 35 mg/dL *LOW* (06/28/24 11:23 AM) K [3.5-5.1 mmol/L] 3.9 mmol/L (06/28/24 11:23 AM) LDL Chol, Calculated [50-130 mg/dL] 45 m g/dL *LOW* (06/28/24 11:23 AM) Na [137-145 mmol/L] 135 mmol/L *LOW* (06/28/24 11:23 AM) TG [<200 mg/dL] 98 mg/dL (06/28/24 11:23 AM) 1Result Comment: Testing Performed By: Dept of [facility] [address], [address] [place] [id number] 2Result Comment: Testing Performed By: Dept of Pathology [facility] [address], [address] [place] [id number] 3Result Comment: Testing Performed By: Dept of Pathology [facility] [address], [address] [place] [id number] Social History Social History Type Response Smoking Status Never smoked cigaret jori Sex Male Sex Representation Male (finding) Patient Care team information Care Team Personnel Name: MD Figueroa Michael P Position: Physician - Family Med Member Role: Primary Care Provider Address: [facility] [address] [place] [address] [place] Care Team Related Persons Name: RIANNA ELLIS Name: RIANNA ELLIS
--- OUTSIDE RECORDS SUMMARY | 2024-08-01 05:54 | External Medical Summary | Continuity of Care Document ---
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) - Type 2 diabetes mellitus without complications(Final) - Dyspnea, unspecified(Final) - Hyperparathyroidism, unspecified(Final) - Essential (primary) hypertension(Final) [...] vaccine 11/03/06 Recorded hepatitis A-hepatitis B vaccine 12/14/06 Recorded 1Result Comment: Suspension 453b2 11/28/21 Medications amLODIPine 5 mg oral tablet Start: 08/04/23 9:07:00 PM EDT, 1 tab, PO, Daily, Disp# 90 tab, Refills: 3, Pharmacy: [facility] #[id number] Start Date: 08/04/23 Status: Ordered atorvastatin 20 mg oral tablet Start: 11/13/22 5:23:00 PM EST, 1 tab, PO, Daily, Disp# 90 tab, Refills: 3, Pharmacy: [facility] #[id number] Start Date: 11/13/22 Status: Ordered carvedilol 25 mg oral tablet Start: 10/21/23 5:19:00 PM EST, 1 tab, PO, bid, Disp# 180 tab, Refills: 3, Pharmacy: [facility]/pharmacy #[id number] Start Date: 10/21/23 Stop Date: 10/15/24 Status: Ordered Flonase 50 mcg/inh nasal spray Start: 01/06/24 5:53:00 PM EDT, 2 spray, each nostril, bid, Disp# 16 g, Refills: 3, Pharmacy: [facility]/pharmacy #[id number] Start Date: 01/06/24 Status: Ordered furosemide [...] as needed for wheezing, Pharmacy: [facility] #[id number] Start Date: 06/17/23 Stop Date: 06/11/24 Status: Ordered Slow Release Iron 160 mg (50 mg elemental iron) oral tablet, extended release Start: 07/09/20 2:25:00 PM EDT, 1 tab, PO, Daily, Disp# 30 tab, Refills: 3, may take with food to minimize abdominal discomfort in evening, Pharmacy: [facility] [address] [facility] Start Date: 07/09/20 Status: Ordered sodium bicarbonate [...] this is what I want, Pharmacy: [id number] Start Date: 07/09/20 Status: Ordered Problem List [...] on of skin 11 09/23/15 Completed no retinopathy-[facility] 11/27/13 Completed Cataract extraction, inserti [...] Basic Metabolic Panel (BASIC METAB PANEL ) 07/03/24 Most recent to oldest [Reference Range]: 1 eGFR CKD-EPI [>60 mL/min/1.73 m2] 27 mL/ min/1.73 m2 1 *LOW* (07/03/24 11:09 AM) Estimated CrCl 24.37 mL/min (07/03/24 11:52 AM) Anion Gap [5-14 mmol/L] 5 mmol/L (07/03/24 11:09 AM) BUN [7-20 mg/dL] 39 mg/dL *HI* (07/03/24 11:09 AM) Ca [8.4-10.2 mg/dL] 8.5 mg/dL (07/03/24 11:09 AM) Cl- [96-107 mmol/L] 111 mmol/L *HI* (07/03/24 11:09 AM) HCO3 [22-30 mmol/L] 23 mmol/L (07/03/24 11:09 AM) Cret [0.70-1.30 mg/dL] 2.39 mg/dL *HI* (07/03/24 11:09 AM) Glu [74-106 mg/dL] 98 mg/dL (07/03/24 11:09 AM) K [3.5-5.1 mmol/L] 3.9 mmol/L (07/03/24 11:09 AM) Na [137-145 mmol/L] 139 mmol/L (07/03/24 11:09 AM) 1Result Comment: Testing Performed By: Dept of Pathology [facility] [address], [address], [place] [address] Social History Social History Type Response Smoking Status Never smoked cigaret jori Sex Male Sex Representation Male (finding) Patient Care team information Care Team Personnel Name: MD Henry, Ralph Aguilera Position: Physician - Family Med Member Role: Primary Care Provider Address: [address] Care Team Related Persons Name: RIANNA ELLIS Name: RIANNA ELLIS
--- OUTSIDE RECORDS SUMMARY | 2024-08-01 05:54 | External Medical Summary | Continuity of Care Document ---
Author Name Unknown Organization [address] [place] [phone] Care Team Providers Care Technology Consultant Name Role Phone Ralph Figueroa Primary Care Physician [phone] Encounter [facility] [id number] Date(s): 06/29/24 - 06/29/24 [facility] 0 [facility] 207 [facility] [address] [address] [phone] Encounter Diagnosis CKD stage 4 due to type 2 diabetes mellitus(Discharge Diagnosis) - 06/29/24 Diabetes(Discharge Diagnosis) - 06/29/24 HENDRICKS (dyspnea on exertion)(Discharge Diagnosis) - 06/29/24 Hyperparathyroidism(Discharge Diagnosis) - 06/29/24 HYPERTENSION(Discharge Diagnosis) - 06/29/24 Body mass index [BMI] 25.0-25.9, adult(Discharge Diagnosis) - 06/29/24 BRBPR (bright red blood per rectum)(Discharge Diagnosis) - 06/29/24 Discharge Disposition: Home or Self Care Attending Physician: MD Figueroa Michael P Allergies, Adverse Reactions, Alerts No Known Allergies Assessment and Plan Extracted from: Title:Office Visit Note Author:MD Henry, Kael Aguilera Date:06/29/24 1.CKD stage 4 due to type 2 diabetes mellitus STATUS: [X= specifies status]Previous visit:GFR = 20.9 in AUG 2023 then per pt this reduced to 19. SInce he started Jardiance.GFR= due --labs ordered but done at [facility]-- no results- PT states he did these at [facility] and GFR = 21.4 .He states his GFR is running 21 to 18.6. He went to a kidney transplant center and then GFR increased to 22. The Center told him they do not rec transplant at his age due to risks with infection. -Chronic stable: -Chronic progressive: x -Acute NEW DX: DATA:Labs/Tests reviewed. GFR = 18 CKD Staging Stg 1 GFR >= 90 (NORMAL) Stg 2 GFR 60-89 (MILD) Stg 3a GFR 45-59 (MILD-MOD) Stg 3b GFR= 30-44 (MOD-SEVERE) 4 GFR = 15-29 (SEVERE) Stg 5 GFR = <15 (RENAL FAILURE) GOAL:Maintain/improve stability. PLAN:Continue current monitoring. FU Nephrology Q 2 mos with labs Q month. Repeat BMP in 1-2 weeks with hydration ( add in Gatorade Zero to avoid hyponatremia . 2.Diabetes STATUS: [X= specifies status]Previous visit:OFF Glucophage XL 500 mg daily. A1C reviewed. A1C = 5.6 in MAY 2023. Jardiance was started by by Leandra. Jardiance (empagliflozin) = sodium-glucose co-transporter 2 (SGLT2) inhibitors. (REVIEWED BELOW INFO) on Jardiance 12.5 now -Chronic stable: X -Chronic progressive: -Acute NEW DX: DATA:Labs/Tests reviewed.A1C=5.5 GOAL:Maintain/improve stability. PLAN:Continue current monitoring. . 3.HENDRICKS (dyspnea on exertion) STATUS: [X= specifies status]Previous visit: Sees Dr Stockton -Chronic stable: X Now not an issue per pt -Chronic progressive: -Acute NEW DX: DATA:Labs/Tests reviewed. Finalized by Dr. Neo Stockton MD on 09/27/2023 04:29 PM Summary 1. Normal left ventricular size and systolic function with no regional wall motion abnormalities. 2. Ejection fraction as calculated by Biplane Simpsons method is 60%. 3. Mild to moderate concentric left ventricular hypertrophy. 4. Grade I diastolic dysfunction of the left ventricle (impaired relaxation pattern) with indeterminate left atrial pressure. 5. Normal right ventricular size and function. 6. Moderately dilated left atrium. 7. Mildly dilated right atrium. 8. Dilated aortic root (3.8 cm) and ascending aorta (3.5 cm). 9. Mild to moderate, eccentric (posteriorly directed) aortic insufficiency.10. Mildly elevated pulmonary artery pressures, estimated PASP is 42 mmHg. 11. Estimated pulmonary arterial mean pressure is 30 mmHg. GOAL:Maintain/improve stability. PLAN:Continue current monitoring. Repeat ECHO in SEP [address] Grayson . 4.Hyperparathyroidism STATUS: [X= specifies status]Previous visit:Ca= 9.2 in FEBRUARY 2023 -Chronic stable: X -Chronic progressive: -Acute NEW DX: DATA:Labs/Tests reviewed. Ca= 8.4 GOAL:Maintain/improve stability. PLAN:Continue current monitoring. . 5.HYPERTENSION STATUS: [X= specifies status]Previous visit:BP = 126/74 -Chronic stable: X -Chronic progressive: -Acute NEW DX: DATA:Labs/Tests reviewed.PX=554/58 GOAL:Maintain/improve stability. PLAN:Continue current monitoring. . 6.BRBPR (bright red blood per rectum) STATUS: [X= specifies status] Occurred a few weeks ago x 1 with dirrhea with spot on toilet paper sizeof1/2 dime. -Chronic stable: -Chronic progressive: -Acute NEW DX: XX DATA:Labs/Tests reviewed. GOAL:Maintain/improve stability. PLAN:Continue current monitoring. Rectal exam with no obviousblood and with + hemmorhoids. Use OTC Prep H . Summary: Medications: reviewed/changed/refilled _Completed Results:_Reviewed Labs:_6 mos: Follow up visit: Return to clinic: _6 months Other activities completed this visit: Education provided (discussion, questions, etc) _ Discussed: _ progressive renal dysfunction Coordinate care: Primary care and _ Time spent: Pre-visit planning: _ 10 [id number] visit: _ 30 Total visit time: _ 40 *does not include time for AWV or procedure if applicable Immunizations Given and Recorded Vaccine Date Status [...] vaccine live 05/11/13 Recorded pneumococcal 23-valent vaccine 1/24/12 Given hepatitis A-hepatitis B vaccine 09/30/07 Recorded hepatitis A-hepatitis B vaccine 11/03/06 Recorded hepatitis A-hepatitis B vaccine 09/30/06 Recorded 1Result Comment: Suspension [id number] 11/28/21 Medications amLODIPine 5 mg oral tablet Start: 08/04/23 9:07:00 PM EDT, 1 tab, PO, Daily, Disp# 90 tab, Refills: 3, Pharmacy: [facility] #[id number] Start Date: 08/04/23 Status: Ordered atorvastatin 20 mg oral tablet Start: 11/13/22 5:23:00 PM EST, 1 tab, PO, Daily, Disp# 90 tab, Refills: 3, Pharmacy: [facility] #[id number] Start Date: 11/13/22 Status: Ordered carvedilol 25 mg oral tablet Start: 10/21/23 5:19:00 PM EST, 1 tab, PO, bid, Disp# 180 tab, Refills: 3, Pharmacy: [facility]/pharmacy #[id number] Start Date: 10/21/23 Stop Date: 10/15/24 Status: Ordered Flonase 50 mcg/inh nasal spray Start: 01/06/24 5:53:00 PM EDT, 2 spray, each nostril, bid, Disp# 16 g, Refills: 3, Pharmacy: [facility]/pharmacy #[id number] Start Date: 01/06/24 Status: Ordered [...] as needed for wheezing, Pharmacy: [facility] #[id number] Start Date: 06/17/23 Stop Date: 06/11/24 Status: Ordered Slow Release Iron 160 mg (50 mg elemental iron) oral tablet, extended release Start: 07/09/20 2:25:00 PM EDT, 1 tab, PO, Daily, Disp# 30 tab, Refills: 3, may take with food to minimize abdominal discomfort in evening, Pharmacy: [facility] Start Date: 07/09/20 Status: Ordered [...] this is what I want, Pharmacy: [id number] Start Date: 07/09/20 Status: Ordered Mental Status 06/29/24 Barriers to Learning one year None evide nt Mandatory Health Literacy Documentation Yes Health Literacy Communication Barriers N ever Primary Language Icelandic Problem List Condition Confirmation Course Effective Dates [...] by ENDO Dr. LUIS ERWIN 3left knee Diagnosis Diagnosis Type Effective Dates Health Status Clinical Service Informant Hyperparathyroidism Discharge Diagnosis 06/29/24 Non-Specifie d HYPERTENSION Discharge Diagnosis 06/29/24 Non-Specifie d Diabetes Discharge Diagnosis 06/29/24 Non-Specifie d CKD stage 4 due to type 2 diabetes mellitus Discharge Diagnosis 06/29/24 Non-Specifie d HENDRICKS (dyspnea on exertion) Discharge Diagnosis 06/29/24 Non-Specifie d Body mass index [BMI] 25.0-25.9, adult Discharge Diagnosis 06/29/24 Non-Specifie d BRBPR (bright red blood per rectum) Discharge Diagnosis 06/29/24 Non-Specifie d Procedures Procedure Date Related Diagnosis Body Site [...] on of skin 11 09/23/15 Completed no retinopathy-[facility] 11/27/13 Completed Cataract extraction, inserti [...] repeat May 2018 11right upper back 12BILATERAL Vital Signs Most recent to oldest [Reference Range]: 1 Height 173.1 cm (06/29/24 10:26 AM) Patient Weight 77.5 kg (06/29/24 10:26 AM) Body Mass Index 25.86 kg/m2 (06/29/24 10:26 AM) Heart Rate 63 bpm (06/29/24 10:26 AM) Respiratory Rate 18 br/min (06/29/24 10:26 AM) Blood Pressure 112/58mmHg (06/29/24 10:26 AM) Cuff Pulse Pressure 54 mmHg (06/29/24 10:26 AM) Social History Social History Type Response Smoking Status Never smoked cigaret jori Sex Male Sex Representation Male (finding) FCM Outpt Note * MD Henry, Ralph Aguilera: PERFORM Event Display: FCM Outpt Note Authored Date: Chief Complaint 4 month f/u. History of Present Illness Most recent visitwith Dr. Figueroa: * This patient is followed longitudinally for chronic serious medical problems by Dr. Nestor Figueroa. CC: FU on established problems (status = chronic):CKD, Stg 4, DMT2, HRN, Hyperchloremia, hyperlipidemia, elevated PTH, BPH Address new problems (status = acute): Wants to discuss dialysis; He had diarrhea 2 and 3 days ago so wonders if this affected renal function.He had a spot of blood with wiping after diarrhea,but the diarrhea has resolved. He sees Dr. Mobley and discussed dialysis with her. She referred him to Review of Systems Constitutional: No fever, No chills, No fatigue. Respiratory: No shortness of breath, No cough, No wheezing. Cardiovascular: No chest pain, No palpitations. Gastrointestinal: No nausea, No vomiting, No diarrhea, No abdominal pain. Neurologic:No numbness, No tingling, No headache. Physical Exam Vitals & Measurements HR:63(Monitored) RR:18 BP:112/58 SpO2:98% HT:173.1cm WT:77.500kg(Dosing) WT:77.5kg BMI:25.86 PHQ2 Data(Data Documented on:06/29/2024 10:25) Emotional health assessment NEGATIVE Constitutional: No fever, No chills, No fatigue. Respiratory: No shortness of breath, No cough, No wheezing. Cardiovascular: No chest pain, No palpitations. Gastrointestinal: No nausea, No vomiting, No diarrhea, No abdominal pain. Neurologic:No numbness, No tingling, No headache. General: Alert and oriented, No acute distress. Neck: Supple, Non-tender, No jugular venous distention, No lymphadenopathy, No thyromegaly. Respiratory: Lungs are clear to auscultation, Respirations are non-labored, Breath sounds are equal. Cardiovascular: Normal rate, Regular rhythm, No murmur, rubs or gallops. Gastrointestinal: Soft, Non-tender, Non-distended, Normal bowel sounds. Neurologic: Alert, Oriented, No focal deficits. Psychiatric: Cooperative, Appropriate mood & affect. Rectal-- No masses except hemorrhoids without bleleding Assessment/Plan 1.CKD stage 4 due to type 2 diabetes mellitus STATUS: [X= specifies status]Previous visit:GFR = 20.9 in AUG 2023 then per pt this reducedto 19. SInce he started Jardiance.GFR= due --labs ordered but done at [facility]-- no results- PT states he did these at [facility] and GFR = 21.4 .He states his GFR is running 21 to 18.6. He went to [facility] and then GFR increased to 22. The Center told him they do not rec transplant at his age due to risks with infection. -Chronic stable: -Chronic progressive: x -Acute NEW DX: DATA:Labs/Tests reviewed. GFR = 18 CKD Staging Stg 1 GFR >= 90 (NORMAL) Stg 2 GFR 60-89 (MILD) Stg 3a GFR 45-59 (MILD-MOD) Stg 3b GFR= 30-44 (MOD-SEVERE) 4 GFR = 15-29 (SEVERE) Stg 5 GFR = <15 (RENAL FAILURE) GOAL:Maintain/improve stability. PLAN:Continue current monitoring. FU Nephrology Q 2 mos with labs Q month. Repeat BMP in 1-2 weeks with hydration ( add in Gatorade Zero to avoid hyponatremia . 2.Diabetes STATUS: [X= specifies status]Previous visit:OFF Glucophage XL 500 mg daily. A1C reviewed.A1C = 5.6 in MAY 2023. Jardiance was started by by Leandra. Jardiance (empagliflozin) = sodium-glucose co-transporter 2 (SGLT2) inhibitors. (REVIEWED BELOW INFO) on Jardiance 12.5 now -Chronic stable: X -Chronic progressive: -Acute NEW DX: DATA:Labs/Tests reviewed.A1C=5.5 GOAL:Maintain/improve stability. PLAN:Continue current monitoring. . 3.HENDRICKS (dyspnea on exertion) STATUS: [X= specifies status]Previous visit: Sees Dr Stockton -Chronic stable: X Now not an issue per pt -Chronic progressive: -Acute NEW DX: DATA:Labs/Tests reviewed. Finalized by Dr. Neo Stockton MD on 09/27/2023 04:29 PM Summary 1. Normal left ventricular size and systolic function with no regional wall motion abnormalities. 2. Ejection fraction as calculated by Biplane Simpsons method is 60%. 3. Mild to moderate concentric left ventricular hypertrophy. 4. Grade I diastolic dysfunction of the left ventricle (impaired relaxation pattern) with indeterminate left atrial pressure. 5. Normal right ventricular size and function. 6. Moderately dilated left atrium. 7. Mildly dilated right atrium. 8. Dilated aortic root (3.8 cm) and ascending aorta (3.5 cm). 9. Mild to moderate, eccentric (posteriorly directed) aortic insufficiency.10. Mildly elevated pulmonary artery pressures, estimated PASP is 42 mmHg. 11. Estimated pulmonary arterial mean pressure is30 mmHg. GOAL:Maintain/improve stability. PLAN:Continue current monitoring.Repeat ECHO in SEP [address] Grayson . 4.Hyperparathyroidism STATUS: [X= specifies status]Previous visit:Ca= 9.2 in FEBRUARY 2023 -Chronic stable: X -Chronic progressive: -Acute NEW DX: DATA:Labs/Tests reviewed. Ca= 8.4 GOAL:Maintain/improve stability. PLAN:Continue current monitoring. . 5.HYPERTENSION STATUS: [X= specifies status]Previous visit:BP = 126/74 -Chronic stable: X -Chronic progressive: -Acute NEW DX: DATA:Labs/Tests reviewed.PE=975/58 GOAL:Maintain/improve stability. PLAN:Continue current monitoring. . 6.BRBPR (bright red blood per rectum) STATUS: [X= specifies status] Occurred a few weeks ago x 1 with dirrhea with spot on toilet papersizeof1/2 dime. -Chronic stable: -Chronic progressive: -Acute NEW DX: XX DATA:Labs/Tests reviewed. GOAL:Maintain/improve stability. PLAN:Continue current monitoring. Rectal exam with no obviousblood and with + hemmorhoids. Use OTC Prep H . Summary: Medications: reviewed/changed/refilled _Completed Results:_Reviewed Labs:_6 mos: Follow up visit: Return to clinic: _6 months Other activities completed this visit: Education provided (discussion, questions, etc) _ Discussed: _ progressive renal dysfunction Coordinate care: Primary care and _ Time spent: Pre-visit planning: _ 10 [id number] visit: _ 30 Total visit time: _ 40 *does not include time for AWV or procedure if applicable Problem List/Past Medical History Ongoing Aortic insufficiency Bilateral inguinal hernia BPH associated with nocturia CKD stage 4 due to type 2 diabetes mellitus Diabetes Diarrhea DiverticulOSIS HENDRICKS (dyspnea on exertion) Epididymal cyst Fracture of distal phalanx of right great toe H/O Malignant melanoma Health care maintenance HEARING LOSS Hemorrhoids Hyperchloremia Hyperkalemia Hyperlipidemia Hyperparathyroidism HYPERTENSION Inguinal hernia Left ankle pain Left ankle sprain Left inguinal hernia Left knee DJD Left knee pain Leukocytosis Melanocytic nevus Meniscus tear Mitral regurgitation Obesity Postoperative anemia Prostate nodule RECTAL PROLAPSE Renal cell carcinoma Right foot pain Scrotal mass Senile hyperkeratosis Skin lesion of back Resolved Renal mass ROUTINE GENERAL MEDICAL EXAMINATION AT A HEALTH CARE FACILITY Procedure/Surgical History Stress echocardiography| Service Date: 06/16/2021testicular ultrasound| Service Date: 06/10/2021have biopsy of skin| Service Date: 02/28/2021Hernia repair| Service Date: 10/09/2020Kidney, Right, Robotic laparoscopic partial nephrectomy| Service Date: 06/06/2020DXA BONE DENSITY STUDY| Service Date: 03/18/2020Shave biopsy and cauterization of skin| Service Date: 09/28/2018Bone density scan| Service Date: 01/17/2018Examination of eye| Service Date: 12/28/2017Eye examination| Service Date: 12/18/2016Colonoscopy| Service Date: 08/25/2016Femoral neck DEXA scan Zscore| Service Date: 05/18/2016Shave biopsy and cauterization of skin| Service Date: 11/26/2015Shave biopsy and cauterization of skin| Service Date: 09/23/2015no retinopathy-[facility]| Service Date: 11/27/2013Cataract extraction, insertion of intraocular lens and trabeculectomy|Service Date: 11/18/2013one density| Service Date: 05/24/2013colonoscopy| Service Date: 02/16/2004Prostate BX--2003--NEG| Service Date: 10/18/2003ECHO--02/2007, 01/2003| Service Date: 01/16/2003Cyst scrotum --1988--[facility]| Service Date: 10/18/1988Vasectomy| Service Date: 10/18/1988Tonsillectomy and adenoidectomy| Service Date: 10/18/1948 Medications albuterol(ProAir HFA 90 mcg/inh inhalation aerosol), 2 puff, inhaled, qid, PRN, 3 refills amLODIPine(amLODIPine 5 mg oral tablet), 5 mg= 1 tab, PO, Daily, 3 refills ascorbic acid(Vitamin C 500 mg oral capsule), 500 mg= 1 cap, PO, Daily, 3 refills atorvastatin(atorvastatin 20 mg oral tablet), 20 mg= 1 tab, PO, Daily, 3 refills carvedilol(carvedilol 25 mg oral tablet), 25 mg= 1 tab, PO, bid, 3 refills empagliflozin(Jardiance 10 mg oral tablet), 10 mg= 1 tab, PO, Daily empagliflozin(Jardiance 25 mg oral tablet), 1/2 tab, PO ferrous sulfate(Slow Release Iron 160 mg (50 mg elemental iron) oral tablet, extended release), 160mg= 1 tab, PO, Daily, 3 refills fluticasone nasal(Flonase 50 mcg/inh nasal spray), 2 spray, each nostril, bid, 3 refills furosemide(furosemide 20 mg oral tablet) lisinopril(lisinopril 20 mg oral tablet), 20 mg= 1 tab sodium bicarbonate(sodium bicarbonate 650 mg oral tablet) sodium zirconium cyclosilicate(Lokelma 10 g oral powder for reconstitution) Allergies NKA Social History Smoking Status Never smoked cigarettes Alcohol Use:Current Type:Wine Frequency:Daily Average drinks per episode in last year:1 Employment/School Status:Retired Previous employment/school:[employer] Activity level:Occasional physical work Highest education:University degree(s) Hazardous equipment operation:Yes Exercise Duration (average number of minutes):25 Times per week:1-2 times/week Self assessment:Good condition Exercise type:Aerobics Home/Environment Lives with:Children, Spouse Living situation:Home/Independent Substance abuse in household:No Smoker in household:No Nutrition/Health Type of diet:Regular Sexual Sexually active:Yes Current partners:1 Substance Abuse - Denies Substance Abuse Tobacco - Denies Tobacco Use Family History Alive and well: Daughter, Son and Son. Cancer: Sister. Heart disease: Mother. Schizophrenia: Son. Health Status Family Member(s) Family Member(s) Relationship: Mother, Age: 65 Years, Cause: Rheumatic Heart Disease Relationship: Sister, Age: 51 Years, Cause: Hodgkins, Leukemia (? type) Relationship: Father, Age: 99 Years, Cause: OLD AGE Immunizations Vaccine Date Status zoster vaccine, inactivated 11/28/2019 Given zoster vaccine, inactivated 06/06/2019 Given Comments : Suspension [id number] 11/28/21 influenza virus vaccine, inactivated 06/28/2017 Given influenza virus vaccine, inactivated 12/08/2016 Given tetanus/diphtheria/pertuss, acel (Tdap) 10/28/2015 Recorded influenza virus vaccine, inactivated 07/02/2015 Given influenza virus vaccine, inactivated 08/30/2014 Given pneumococcal 13-valent vaccine 08/30/2014 Given influenza virus vaccine, inactivated - Not Given Comments : Already received vaccine influenza virus vaccine, inactivated 08/03/2013 Given zoster vaccine live 05/11/2013 Recorded pneumococcal 23-valent vaccine 11/10/2011 Given tetanus/diphtheria/pertuss, acel (Tdap) 11/23/2008 Recorded hepatitis A-hepatitis B vaccine 09/30/2007 Recorded hepatitis A-hepatitis B vaccine 11/03/2006 Recorded hepatitis A-hepatitis B vaccine 09/30/2006 Recorded Recommendations Health Maintenance Pending(in the next year) OverDue Adult Influenza Vaccine due04/16/24and every 1year Due Adult COVID-19 Vaccination due06/29/24Unknown Frequency Adult Social Determinants of Health Screening due06/29/24Unknown Frequency Falls Plan of Care due06/29/24Unknown Frequency Due In Future Medicare Annual Wellness Visit not due until09/16/24and every 1year Satisfied(in the past 1 year) Satisfied Body Mass Index on06/29/24.Satisfied by ROSS Jarquin Kyla Diabetes Management A1c on06/28/24.Satisfied by Contributor_system, [employer] [facility] Diabetic Eye Exam on09/23/23.Satisfied by JOY Castañeda Lynnae Lipid Screening on06/28/24.Satisfied by Contributor_system, [id number] Medicare Annual Wellness Visit on09/16/23.Satisfied by MD Figueroa Michael P Electronic Signature on File Electronically Reviewed/Signed by: Ralph Figueroa MD Author Signature Dt/Tm:06/29/2024 11:08 AM Department of Family Medicine [facility] Patient Care team information Care Team Personnel Name: MD Figueroa Michael P Position: Physician - Family Med Member Role: Primary Care Provider Address: [address] [place] [address] [place] Care Team Related Persons Name: RIANNA ELLIS Name: RIANAN ELLIS"
[2024-08-01] MEDS ORDERED: hydrALAZINE 10 MG TAB PO PRN (06:21)
[2024-08-01] MEDS: ATORVASTATIN 20 MG TAB PO SCH (08:04)
[2024-08-01] MEDS: EMPAGLIFLOZIN 25 MG TAB PO SCH (08:05)
[2024-08-01] MEDS: SODIUM BICARBONATE 650 MG TAB PO SCH (08:05)
[2024-08-01 08:09] LABS: Appearance Urine Clear (Clear); Bacteria Urine Automated None Seen (None Seen); Bilirubin Urine Negative (Negative); Blood Urine Trace (Negative); Cast Urine Automated 0-2 /lpf (0-2); Color Urine Yellow; Epithelial Cell Urine Auto 0-2 /hpf (0-2); Glucose Urine UA 2+ (Negative); Ketones Urine Negative (Negative); Leukocyte Esterase Urine Negative (Negative); Nitrite Urine Negative (Negative); Protein Urine 3+ (Negative); Specific Gravity Urine 1.015 (1.000-1.030); Urobilinogen Urine Negative (Negative); WBC Urine Automated 0-5 /hpf (0-5)
[2024-08-01] MEDS ORDERED: SODIUM ZIRCONIUM CYCLOSILICATE 10 GM PACKET PO SCH (09:00)
[2024-08-01] MEDS ORDERED: carvediloL 25 MG TAB PO SCH (09:00)
--- NOTE | 2024-08-01 09:34 | Electrocardiogram Report ---
Test Reason : Blood Pressure : */* mmHG Vent. Rate : 78 BPM Atrial Rate : 78 BPM P-R Int : 232 ms QRS Dur : 136 ms QT Int : 446 ms P-R-T Axes : 58 -83 27 degrees QTcB Int : 508 ms Sinus rhythm with 1st degree A-V block Right bundle branch block Left anterior fascicular block Abnormal ECG When compared with ECG of 23-Oct-2022 11:15, (RBBB and left anterior fascicular block) is now Present Minimal criteria for Septal infarct are no longer Present Confirmed by Jefry Feliz ([id number]) on 08/01/2024 9:34:31 AM Referred By: REFERRED SELF Confirmed By: Jefry Feliz
[2024-08-01] MEDS: hydrALAZINE 10 MG TAB PO SCH (09:48)
--- NOTE | 2024-08-01 10:44 | Hospitalist Progress Note ---
Date of Service August 01, 2024 Assessment & Plan (1) Recurrent episodes of unresponsiveness: Plan: Probably from sinus pauses related to beta-carlos therapy in addition to trifascicular heart block. Telemetry. Cardiology consultation is pending. Free T3 and free T4 levels are pending. (2) Hypertension: Plan: Hydralazine has been started. Carvedilol and lisinopril have been discontinued. Will follow (3) Chronic kidney disease, stage 4 (severe): Plan: Lisinopril has been discontinued. He probably would best be served if he avoids KENDALL inhibitors or ARB's. History of hyperkalemia should resolve with discontinuation of KENDALL inhibitor. Lokelma has been discontinued. Serial labs. Monitor intake and output (4) Diabetes: Plan: ADA diet. Sliding scale coverage as needed. Plan Hopeful discharge to home soon, within the next day or 2 if he does not need pacemaker implantation Admission and Anticipated Discharge Date Admission Date: August 01, 2024 Subjective Alert and oriented. Admission EKG reveals trifascicular block with first-degree AV block/left anterior hemiblock/right bundle branch block. I suspect he has been suffering from sinus pauses leading to hypotension leading to near syncope as the cause of his current symptoms. Carvedilol and lisinopril have been discontinued. Lokelma has also been discontinued. History of hyperkalemia should resolve with discontinuation of lisinopril. He has stage IV kidney disease and would best be served if KENDALL inhibitors and ARB's are avoided. Hydralazine has been started for elevated blood pressure. Cardiology consultation requested and pending. Review of Systems 2 Review of Systems: Constitutionalno fever or chills. Intermittent near syncopal episodes ENTno blurred vision, no double vision, no epistaxis, no sore throat Respiratoryno cough, no wheezing, no shortness of breath Cardiacno palpitations, no chest pain, no syncope [place] nausea, vomiting, diarrhea, melena, hematochezia GUno urinary retention, no urinary incontinence, no dysuria, no hematuria Musculoskeletalno joint pain, no muscle tenderness Skinno bruising, no rashes, no pruritus Neurono isolated weakness, no paresthesia, no weakness Psychno depression, no anxiety Physical Exam 2 Physical Exam: General-alert and oriented x3, no fever, no chills HEENT-head atraumatic and normocephalic, pupils equal and reactive to light, extraocular muscles intact Neck-no lymphadenopathy or thyromegaly, trachea midline Chest-clear to auscultation. No rales, wheezing or rhonchi Cardiac-regular rate and rhythm, normal S1 and S2 Abdomen-normal bowel sounds, no hepatosplenomegaly Extremities-no cyanosis, clubbing, or edema Neuro-cranial nerves II through XII intact, motor and sensory function within normal limits, strength symmetrical, no focal deficits Psych-normal affect, normal mood Results & Data Results & Data Vital Signs (Past 12 Hours) Vital Signs Temp Pulse Resp BP BP Pulse Ox O2 Del Method 08/01/24 07:36 36.4 C L 14 176/76 H 96 Room Air 08/01/24 07:14 67 08/01/24 05:00 36.6 C 16 187/80 H 94 Room Air 08/01/24 04:50 71 08/01/24 04:00 66 20 145/73 H 96 Room Air 08/01/24 03:46 74 08/01/24 03:00 78 16 169/89 H 95 Room Air 08/01/24 02:43 77 19 178/91 H 95 08/01/24 01:30 161/91 H 08/01/24 01:30 161/91 H 08/01/24 01:30 161/91 H 08/01/24 01:18 72 14 93 08/01/24 01:00 76 19 94 08/01/24 01:00 175/99 H 08/01/24 01:00 175/99 H 08/01/24 01:00 175/99 H 08/01/24 00:53 189/91 H 08/01/24 00:30 178/91 H 08/01/24 00:30 178/91 H 08/01/24 00:21 76 25 H 96 08/01/24 00:09 76 16 97 07/31/24 23:56 77 07/31/24 23:54 184/87 H 07/31/24 23:43 36.6 C 75 20 191/86 H 95 Room Air Laboratory Results 08/01/24 00:10 08/01/24 00:10 PG Care Time/CCT Total # of Minutes Spent Total Time Spent with Patient: Total time spent is greater than 50% in coordination of care (as documented) at patient's floor/unit and/or counseling patient: Coding Level of Care Code 88938 SUB INP/OBS CARE 350MIN Diagnoses Recurrent episodes of unresponsiveness R40.4 Hypertension I10 Chronic kidney disease, stage 4 (severe) N18.4 Diabetes E11.9
--- NOTE | 2024-08-01 13:21 | Cardiology Consultation ---
Date of Consultation August 01, 2024 Assessment & Plan (1) Recurrent episodes of unresponsiveness: (2) Hypertension: (3) Trifascicular block: (4) Aortic insufficiency: (5) Chronic kidney disease, stage 4 (severe): Plan 78-year-old man with cardiac history notable only for mild to moderate aortic insufficiency and hypertension who experienced 2 unexplained episodes of transient unresponsiveness yesterday. Presence of trifascicular block on ECG and absence of clear-cut prodrome raise the possibility of high-grade heart block/pauses as etiology for his unresponsiveness, but these findings alone would not reach the threshold for immediate placement of pacemaker. Given the possibility of high-grade heart block/pauses, agree with discontinuation of carvedilol. In the absence of alternative explanation for his unresponsiveness, would recommend MCOT monitor for 30 days upon discharge to explore the possibility of conduction system abnormalities further. His prior sense of "chills", mildly abnormal transaminases, and persistent BP elevation (unusual for him), all raise the possibility of some systemic but yet to be declared illness which could contribute to vasovagal phenomenon. As such, would recommend continuing telemetry observation for 1 more night while monitoring BP and with recheck of labs tomorrow morning. Although he has diabetes, it is mild (hemoglobin A1c 6.0%) and he is not an insulin or oral hypoglycemic agent, so hypoglycemia seems unlikely. Absence of incontinence or more clear-cut seizures or focal neurologic signs weighs against cerebrovascular etiology, although transient ischemic attack cannot be fully excluded. Orthostatic hypotension not a consideration given that he was seated at the time of the episodes. If his blood pressure remains elevated, the possibility of hypertensive urgency with neurologic symptoms as a cause for his unresponsive episodes is another consideration. No chest pain and no obvious murmur to indicate any progression or role for his aortic insufficiency in regards to his current hospitalization. Has annual echocardiograms to follow this. Agree with adjustment of his vasoactive regimen: discontinuing beta-carlos due to trifascicular block, discontinuing KENDALL inhibitor with rising creatinine, and utilizing hydralazine. Could also restart amlodipine if BP remains elevated, as this should not impact his renal function or cardiac conduction parameters. Patient is routinely followed by Dr. Grayson in the outpatient setting, will inform him of the patient's current status. History of Present Illness Reason for Consultation: trifascicular heart block, unresponsive episodes Requesting Physician: Jose Lopez MD Attending Physician: Jose Lopez MD History of Present Illness 78-year-old man with chronic renal insufficiency (creatinine 2.53.0 range), mild to moderate aortic insufficiency, HTN with mild LVH, and dyslipidemia, but no known heart rhythm/conduction issues who was admitted yesterday after 2 episodes of transient unresponsiveness (5 to 10 seconds each) with progression of ECG from sinus with first-degree AV block/LAFB to sinus with trifascicular block. At recent baseline, he is reasonably physically active and able to perform moderate aerobic activity with no dyspnea, chest pain, palpitations, or other symptoms. Prior to the episodes he felt well yesterday, noting only a mild sense of "chills" which he states can occur from time to time. While seated watching an unremarkable football game he was witnessed to become unresponsive to verbal stimuli for 5 to 10 seconds and appeared pale and diaphoretic with some shakiness of his arms, upon quickly regaining consciousness he was lucid but felt warm and remained diaphoretic. No incontinence. He felt reasonably well until half hour later when he had a second episode of unresponsiveness, similar in duration and character to the first. After that episode he felt somewhat flushed as if "my blood pressure was high" and presented to the emergency department. No chest pain, dyspnea, focal neurologic symptoms, or vertigo. Does not recall any prior similar symptoms. Although the admission H&P notes that he may have felt some dizziness prior to the episodes, at the time of my evaluation he did not recall any prodrome, only his feelings after the episodes. ER evaluation showed him to be afebrile with hypertension (191/86 mmHg), normal heart rate of 75 bpm, and normal respiratory rate of 16. ECG showed sinus rhythm at 70 bpm with first-degree AV block, left anterior fascicular block, and new right bundle branch block compared with October 2022 ECG (thus, new trifascicular block currently). Troponin was 12.6. Creatinine of 3.05 was slightly above his baseline, BUN of 37 was below his usual baseline, and transaminases were slightly elevated (normal at baseline). Hemoglobin of 13.3 was at baseline as well as his WBC of 11.86 (chronic mild leukocytosis). At the time of my evaluation, he was comfortable and had no somatic complaints. Telemetry overnight showed only sinus rhythm at 60-80 bpm with one very brief atrial run and no pauses or higher degrees of heart block. Allergies Allergy/AdvReac Type Severity Reaction Status Date / Time No Known Drug Allergies Allergy Verified 06/20/24 15:25 Home Medications Medication Instructions Recorded Confirmed Type fluticasone propionate 50 1 spray intranasal DAILY PRN 10/30/22 08/01/24 History mcg/actuation nasal Congestion spray,suspension amlodipine 5 mg tablet 5 mg PO DAILY #90 tabs 04/26/24 08/01/24 Rx ascorbic acid (vitamin C) 500 mg 500 mg PO QAM #90 caps 04/26/24 08/01/24 Rx capsule atorvastatin 20 mg tablet 20 mg PO QAM #90 tabs 04/26/24 08/01/24 Rx carvedilol 25 mg tablet 25 mg PO BID #180 tabs 04/26/24 08/01/24 Rx cholecalciferol (vitamin D3) 50 50 mcg PO QAM #90 caps 04/26/24 08/01/24 Rx mcg (2,000 unit) capsule ferrous sulfate 325 mg (65 mg 325 mg PO QAM #90 tabs 04/26/24 08/01/24 Rx iron) tablet (Feosol) lisinopril 20 mg tablet 20 mg PO HS #90 tabs 04/26/24 08/01/24 Rx empagliflozin 25 mg tablet 12.5 mg (1/2 x 25 mg) PO DAILY #30 04/27/24 08/01/24 Rx tabs sodium zirconium cyclosilicate 10 10 g PO DAILY #30 ea 04/27/24 08/01/24 Rx gram oral powder packet (Lokelma) sodium bicarbonate 650 mg tablet 650 mg PO BID #60 tabs 06/29/24 08/01/24 Rx Patient History Medical History (Updated 08/01/24 @ 13:02 by Jefry Feliz MD) Hyperkalemia Metabolic acidosis hx Left inguinal hernia Acute kidney injury hx-2 years ago Perinephric hematoma Postoperative hematoma DM type 2 (diabetes mellitus, type 2) NIDDM- well controlled and stable, currently on metformin History of skin cancer Melanoma- removed - follows with derm routinely Hearing deficit BL [place]- wears hearing aids bilaterally Hyperlipemia HTN (hypertension) Surgical History (Updated 08/01/24 @ 13:02 by Jefry Feliz MD) H/O bilateral inguinal hernia repair (10/09/20) Bilateral Laparoscopic Inguinal Hernia Repair with Mesh Dr. Fisher 10/09/2020 History of tooth extraction Hx of partial nephrectomy right - mass removed History of testicular mass excision History of prostate biopsy History of tonsillectomy and adenoidectomy History of vasectomy History of colonoscopy Family History Son Schizophrenia Sister Cancer Mother Heart disease Other No family history of adverse response to anesthesia Social History Smoking Status: Never smoker Second Hand Exposure: No; Do You Dip or Chew Tobacco: No; Hx Alcohol Use: Yes Alcohol type: wine Hx Substance Use: No Preferred Language: [place]ian Communication Ability: Effective Visual Impairment: Limited Hearing Ability: Use of Hearing Aid Youth Services Librarian Required: No Beliefs That Will Affect Care: None marital status: Current Living Situation: Spouse current occupational status: retired How many Children do You have: 4 Feels Safe at Home: Yes Diet: regular caffeine: No Dental Care, Regularly: Yes Physical Activity Frequency: Does not Exercise Do you think of yourself as: straight/heterosexual Gender Identity: Male Assistive Devices: None Physical Exam Physical Exam: Elevated white male in no distress. Afebrile. BP 183/74 mmHg. Pulse 67 bpm and regular. Respirations 16 and unlabored. Skin: no ecchymoses or generalized lesions. HEENT: unremarkable. Neck: JVP at the clavicle at 90 degrees, no carotid bruits. Lungs: clear. Cardiac: regular rhythm, normal S1-2, no murmur. Abdomen: benign. Extremities: Trace pretibial edema, pulses intact. Neurologic: normal affect and conversation, nonfocal. Results & Data Laboratory Results Labs as noted in HPI. Diagnostic Findings ECG as noted in HPI. Head CT with no acute findings. Echocardiogram 2022 showed EF 60% with mild to moderate LVH, grade 1 diastolic dysfunction, dilated aortic root (3.8 cm) and ascending aorta (3.5 cm) with mild to moderate aortic insufficiency and mild pulmonary hypertension. PG Care Time/CCT Total # of Minutes Spent Total Time Spent with Patient: Total time spent is greater than 50% in coordination of care (as documented) at patient's floor/unit and/or counseling patient: Coding Level of Care Code 85289 IN/OBS CONSULT LVL 4,60M Diagnoses Recurrent episodes of unresponsiveness R40.4 Hypertension I10 Trifascicular block I45.3 Aortic insufficiency I35.1 Chronic kidney disease, stage 4 (severe) N18.4
[2024-08-01] MEDS: INFLUENZA VACC TS2024-25(65y+)/PF (IIV3) 0.5mL Syr IM ONE (15:36)
[2024-08-01 15:52] VITALS: RESP 18
[2024-08-01] MEDS ORDERED: lisinopril 20 MG TAB PO SCH (21:00)
[2024-08-01] MEDS: amLODIPine BESYLATE 5 MG TAB PO SCH (21:15)
[2024-08-02 07:37] LABS: Hematocrit (blood only) 41.8 % (42.0-52.0); Mean Corpuscular Hemoglobin 31.5 pg (25.0-34.0); Mean Corpuscular Hgb Conc 33.5 g/dL (32.0-36.0); Mean Corpuscular Volume 93.9 fL (80.0-100.0); Mean Platelet Volume 9.7 fL (9.4-12.4); Platelet Count 183 K/uL (130-400); RDW Standard Deviation 44.3 fL (36.4-46.3); Red Blood Count 4.45 M/uL (4.70-6.10)
[2024-08-02 08:02] LABS: Albumin Level 3.6 gm/dl (3.4-5.0); BUN Creatinine Ratio 13.8 (10-20); Bilirubin Direct 0.2 mg/dl (0-0.2); Creatinine Clr Calc Pharmacy 19.3 ml/min; Potassium 4.4 mmol/L (3.5-5.1); Total Protein 6.2 gm/dl (6.0-8.3)
[2024-08-02] MEDS: hydrALAZINE HCL 25 MG TAB PO SCH (08:52)
--- NOTE | 2024-08-02 09:46 | Discharge Summary ---
Discharge Summary Date of Service August 02, 2024 Principal Dx & Hospital Course #1 = Principal Diagnosis (1) Recurrent episodes of unresponsiveness: Probably from sinus pauses related to beta-carlos therapy in addition to trifascicular heart block. Telemetry. Cardiology consultation and recommendations appreciated. Free T3 and free T4 levels are normal. (2) Hypertension: Hydralazine has been started and dosage uptitrated today, August 02. Carvedilol and lisinopril have been discontinued. Will follow (3) Chronic kidney disease, stage 4 (severe): Lisinopril has been discontinued. He probably would best be served if he avoids KENDALL inhibitors or ARB's. History of hyperkalemia should resolve with discontinuation of KENDALL inhibitor. Lokelma has been discontinued. Serial labs. Monitor intake and output . Potassium level today is 4.4. Creatinine level is 2.9. (4) Diabetes: ADA diet. Sliding scale coverage as needed. Plan Home today, August 02. He will wear an MCOT for 30 days per cardiology request. Admission HPI Per Admitting Provider Tio Monteiro is a pleasant 78yo male with history of HTN, HLP, DM presenting from home after two unresponsive episodes. Patient was watching football this evening with his son. He recalls becoming slightly dizzy then his son noted that he became pale and diaphoretic, his arms were shaking and he was briefly unresponsive to verbal stimuli. This episode occurred around 10:15 and lasted approximately 10 seconds. Patient recovered and was doing ok. At around 10:45 he had a second episode - shaking, pale and diaphoretic and briefly unresponsive which again lasted several seconds. He again reports feeling slightly dizzy before the episode. After the episode he states he "felt like my BP was high" Patient denies - chest pain or heaviness, palpitations, cough, SOB or incon tinence. Patient reports some intermittent nausea ongoing for the last month. Also notes that his blood pressure has been very high since being in the ER - typically runs 130-140/60. Upon arrival to the ER hiss BP was 191/86. He is compliant with his medications - no missed doses, no recent medication changes, no new OTC medications. Discharge Exam General-alert and oriented x3, no fever, no chills HEENT-head atraumatic and normocephalic, pupils equal and reactive to light, extraocular muscles intact Neck-no lymphadenopathy or thyromegaly, trachea midline Chest-clear to auscultation. No rales, wheezing or rhonchi Cardiac-regular rate and rhythm, normal S1 and S2 Abdomen-normal bowel sounds, no hepatosplenomegaly Extremities-no cyanosis, clubbing, or edema Neuro-cranial nerves II through XII intact, motor and sensory function within normal limits, strength symmetrical, no focal deficits Psych-normal affect, normal mood Discharge Plan Discharge Items Patient Disposition: Home - Self-Care Reason For Visit: UNRESPONSIVE EPISODES Discharge Diagnosis: Syncope, trifascicular heart block Activity: Resume your previous activity Non-emergency contact: Primary Care Provider and [employer] Call non-emergency contact if: you have any medication questions and your symptoms worsen Follow-up/Referrals: Ralph Figueroa [Primary Care Provider] - Diet: Regular and Heart Healthy Addtl Attending Provider Instructions: Stop carvedilol, lisinopril, Lokelma. Continue amlodipine. Hydralazine is new. Stop at cardiology office to fruit or nut picker 30-day outpatient heart monitor. Primary care provider should order weekly lab testing to monitor kidney function and potassium levels for the next several weeks Pending Studies at Discharge: No Stand-Alone Forms: [facility] IIIMOBI, Smoking Cessation Medications and DC Order Prescriptions: New hydralazine 25 mg Tablet 25 mg PO TID Qty: 100 0RF Continued cholecalciferol (vitamin D3) 50 mcg (2,000 unit) capsule 50 mcg PO QAM Qty: 90 3RF ferrous sulfate [Feosol] 325 mg (65 mg iron) tablet 325 mg PO QAM Qty: 90 3RF ascorbic acid (vitamin C) 500 mg capsule 500 mg PO QAM Qty: 90 3RF amlodipine 5 mg tablet 5 mg PO DAILY Qty: 90 3RF atorvastatin 20 mg tablet 20 mg PO QAM Qty: 90 3RF empagliflozin 25 mg tablet 12.5 mg PO DAILY Qty: 30 3RF sodium bicarbonate 650 mg tablet 650 mg PO BID Qty: 60 6RF fluticasone propionate 50 mcg/actuation [place],Suspension 1 spray INTRANASAL DAILY PRN (Reason: Congestion) Rx Instructions: administer into each nostril Discontinued lisinopril 20 mg tablet 20 mg PO HS Qty: 90 3RF carvedilol 25 mg tablet 25 mg PO BID Qty: 180 3RF Rx Instructions: must administer with a meal/food Lokelma 10 gram powder in packet 10 g PO DAILY Qty: 30 11RF Discharge Orders: Discharge Order (Routine); Ordered 08/02/24 Ordered By: Jose Lopez Admission Data Admit Date/Time: 08/01/24 03:17 Attending Provider: Jose Lopez Admit Provider: Darcie Rainey Primary Care Provider: Ralph Figueroa Other Providers: Nils Wharton; Jefry Feliz; Carter Grayson; Shree Chavis; Damion Hammonds; Mann Mosqueda Jr; Jag Ly; Cindy Valladares; Faye Schwartz; Jan Watts; Jan Young; Jose Hernandez; Latha Pacheco; Ralph Vasquez; Tayler Castillo; Jet Che; Ruddy Howell; Kenneth Villareal Hospital Stay Data Consultations 08/01/24 09:15 Consult Cardiology Routine Diagnostic Imagining Performed 08/01/24 00:39 CT head/brain wo con Stat Pending Results Patient Have Any Pending Studies at Discharge: No Discharge Instructions Given to Patient (Per Discharging Provider) Stop carvedilol, lisinopril, Lokelma. Continue amlodipine. Hydralazine is new. Stop at cardiology office to fruit or nut picker 30-day outpatient heart monitor. Primary care provider should order weekly lab testing to monitor kidney function and potassium levels for the next several weeks Total Time Total Time Spent Total Time Spent (In Minutes): 45 minutes Coding Level of Care Code 10908 INP/OBS DISCH >30 MIN Diagnoses Recurrent episodes of unresponsiveness R40.4 Hypertension I10 Chronic kidney disease, stage 4 (severe) N18.4 Diabetes E11.9
[2024-08-02 10:34] VITALS: BP 161/73; PULSE 73; TEMP 97.9; O2SAT 95
== END 2024-08-02 13:56 | disposition home or self-care (01) ==
LOC: ED 23:39 → 2N 23:39 → SUATTDRO 08-01 03:17 → 2N 08-01 04:36

== ENCOUNTER 2024-11-17 14:42 | Inpatient (IN) ==
[2024-11-17 15:23] LABS: Basophils # (auto) 0.09 K/uL (0.00-0.20); Basophils % (auto) 0.7 %; Eosinophils # (auto) 0.25 K/uL (0.00-0.50); Eosinophils % (auto) 1.9 %; Hematocrit (blood only) 41.4 % (42.0-52.0); Hemoglobin 13.6 g/dl (14.0-18.0); Immature Granulocytes # (auto) 0.04 K/uL (0.01-0.20); Immature Granulocytes % (auto) 0.3 %; Lymphocytes # (auto) 2.48 K/uL (1.20-3.40); Lymphocytes % (auto) 18.6 %; Mean Corpuscular Hemoglobin 31.1 pg (25.0-34.0); Mean Corpuscular Hgb Conc 32.9 g/dL (32.0-36.0); Mean Corpuscular Volume 94.7 fL (80.0-100.0); Mean Platelet Volume 9.5 fL (9.4-12.4); Monocytes # (auto) 1.28 K/uL (0.11-0.59); Monocytes % (auto) 9.6 %; Neutrophils # (auto) 9.21 K/uL (1.40-6.50); Neutrophils % (auto) 68.9 %; Platelet Count 250 K/uL (130-400); RDW Standard Deviation 44.6 fL (36.4-46.3); Red Blood Count 4.37 M/uL (4.70-6.10); White Blood Count 13.35 K/ul (4.8-10.8)
[2024-11-17 15:41] LABS: Albumin Globulin Ratio 1.2 (0.9-2); Albumin Level 3.4 gm/dl (3.4-5.0); BUN Creatinine Ratio 16.8 (10-20); Bilirubin,Total 0.3 mg/dl (0.2-1.0); Calcium 8.9 mg/dl (8.6-10.3); Globulin 2.9 gm/dl (2.5-4.0); Potassium 4.6 mmol/L (3.5-5.1); Total Protein 6.3 gm/dl (6.0-8.3)
[2024-11-17 15:47] LABS: Troponin I High Sensitivity 20.1 pg/ml (0-20)
--- NOTE | 2024-11-17 15:49 | XRay Report ---
XR chest 1V portable HISTORY: 78 years-old Male Chest pain, nonspecific COMPARISON: 10/23/2022 TECHNIQUE: AP view of the chest FINDINGS: Cardiac loop recorder device. Heart is mildly enlarged. Mild chronic interstitial coarsening. No pneu mothorax, pleural effusion or airspace consolidation. Degenerative changes of the shoulders and spine . IMPRESSION: No acute process. ACT 112: Negative or not required by law. The above report was generated using voice recognition software. It may contain grammatical, syntax o r spelling errors. Electronically signed by: Abraham Yi M.D. 11/17/2024 3:47 PM
[2024-11-17 15:52] LABS: INR 0.9 (0.9-1.1); Partial Thromboplastin Ratio 1.1; Partial Thromboplastin Time 29 Seconds (21-31); Prothrombin Time 10.2 Seconds (9.0-12.0)
--- NOTE | 2024-11-17 16:05 | Emergency Department Note ---
Impression & Plan CHB (complete heart block), CKD (chronic kidney disease), Elevated troponin ED Provider Note NAME: JULIA ELLIS Jr AGE: 78 SEX: M : 1945 ARRIVES VIA: Walk-In INFORMANT: Patient, ED PROVIDER(S): Glenroy Mcginnis MD CHIEF COMPLAINT: Outpatient referral, complete heart block MEDICAL DECISION MAKING: Patient presents with the above. IV was established and blood work was obtained along with an EKG. Current EKG shows a sinus tachycardia. Blood work does show a white count of 13 with a hemoglobin 13.6 with a normal platelet count. Kidney function with a creatinine 3.51. Patient does have a known history of chronic kidney disease although may be slightly worse from several weeks ago. Troponin of 20.1 no active chest pain or shortness of breath. Chest x-ray does not show any obvious pneumonia or pneumothorax. Patient's runner on Dr. Grayson had already evaluated the patient he would like the patient to be admitted over the weekend and will have a pacemaker placed by Dr. Young on Wednesday. I did instruct nursing to place pads on the patient as a precaution in light of the patient's reported complete heart block that occurred earlier today. I subsequently did speak the on-call hospital service Dr. Frederick and the patient was admitted to the medicine service. Discussion w/ other healthcare providers: Dr. Grayson with cardiology Dr. Frederick inpatient medicine service Prior /Outside records reviewed: None Differential diagnosis: Benign positional vertigo, dehydration, hypovolemia, anemia, infection, hypoglycemia, electrolyte abnormalities, arrhythmia, tox among others were considered. Diagnostics, as interpreted by me: ECG: Sinus tachycardia, rate of 103, borderline ID with a wide QRS right bundle branch block pattern, left axis deviation. No obvious ST elevation. Cardiac monitoring: An order was placed for continuous cardiac monitoring. The monitor shows a rate of 95 with sinus rhythm. Patient was placed on pulse oximetry Medical decision rules: none Imaging studies: I informally interpreted the patient's chest x-ray does not show obvious pneumonia or pneumothorax with formal report to follow. HPI: Patient presents as a referral as an outpatient due to concern for complete heart block which is noted on the patient's loop recorder. Patient reports that he has been asymptomatic no chest pains or shortness of breath no dizziness or lightheadedness. Patient states that he did have an episode of what he is describes as asymptomatic bradycardia back in the fall which is why he had a loop recorder placed at that time. Patient states that he did have lightheadedness and dizziness at that time. Patient denies any acute symptoms today but was called and informed that he had been in complete heart block. Patient states that he was already seen by the runner on prior to my assessment and that the plan was for him to be admitted with likely pacemaker to be placed on Wednesday. Patient was without nausea or vomiting no chest pains or shortness of breath. Patient does report that he has been taking his medications regularly. No history of Lyme's or tick bites. Patient states that he does follow with Dr. Grayson and that he does have a history of kidney disease. PAST MEDICAL HISTORY: See Below PAST SURGICAL HISTORY: See Below SOCIAL HISTORY: See Below HOME MEDICATIONS: See Below ALLERGIES: See Below VITALS: See Below PHYSICAL EXAMINATION: GENERAL: NAD, non-toxic. Wearing glasses. EYE EXAM: Normal conjunctiva. PERRL, no anisocoria and EOM's grossly intact w/o pain. OROPHARYNX: Moist mucus membranes, grossly normal dentition. NECK: Trachea midline, no stridor. Supple, no nuchal rigidity, no adenopathy, non-tender. No signs of meningismus. FROM of the neck with good chin to chest and neck extension. LUNGS: Clear to auscultation. Normal chest wall mechanics. HEART: NSR, no MRG. ABDOMEN: Abdomen soft, non-tender, no masses, no rebound or guarding. BACK: No CVA TTP. SKIN: No rashes and no bruising. UPPER EXTREMITIES: Upper extremities are grossly normal. LOWER EXTREMITIES: Grossly normal, no edema. NEURO EXAM: A&O x3, cranial nerves II-XII grossly intact, normal speech, moves all 4 extremities. Past Med/Surg History Problem List (Updated 11/18/24 @ 00:12 by Glenroy Mcginnis MD) Elevated troponin (Acute) CKD (chronic kidney disease) (Acute) CHB (complete heart block) (Acute) Complete heart block Implantable loop recorder present HTN (hypertension) Aortic insufficiency Moderate per 2017 ECHO Chronic kidney disease, stage 4 (severe) Trifascicular block Mental status change resolved (Acute) Recurrent episodes of unresponsiveness LVH (left ventricular hypertrophy) Acute kidney injury Proteinuria Hypercalcemia (Chronic) Nodular prostate with urinary obstruction (Acute) Renal mass Angiomyolipoma Reducible left inguinal hernia Encounter for pre-operative examination 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 AV block Preoperative cardiovascular examination Clear cell carcinoma of right kidney Pseudoaneurysm following procedure Vitamin D deficiency Iron deficiency anemia Stage 3b chronic kidney disease Hypercholesterolemia Per records Anemia of chronic disease BPH with obstruction/lower urinary tract symptoms Medical History Hyperkalemia Metabolic acidosis hx Left inguinal hernia Acute kidney injury hx-2 years ago Perinephric hematoma Postoperative hematoma Diabetes Hypertension DM type 2 (diabetes mellitus, type 2) NIDDM- well controlled and stable, currently on metformin History of skin cancer Melanoma- removed - follows with derm routinely Hearing deficit BL PARISI- wears hearing aids bilaterally Hyperlipemia Surgical History H/O bilateral inguinal hernia repair (10/09/20) Bilateral Laparoscopic Inguinal Hernia Repair with Mesh Dr. Fisher 10/09/2020 History of tooth extraction Hx of partial nephrectomy right - mass removed History of testicular mass excision History of prostate biopsy History of tonsillectomy and adenoidectomy History of vasectomy History of colonoscopy Family History Son Schizophrenia Sister Cancer Mother Heart disease Other No family history of adverse response to anesthesia Social History Smoking Status: Never smoker Second Hand Exposure: No; Do You Dip or Chew Tobacco: No; Hx Alcohol Use: Yes Alcohol type: wine Hx Substance Use: No Preferred Language: Jamaican Communication Ability: Effective Visual Impairment: Limited Hearing Ability: Use of Hearing Aid Privacy Attorney Required: No Beliefs That Will Affect Care: None marital status: Current Living Situation: Spouse current occupational status: retired How many Children do You have: 4 Other Information That Helps Us Care for You: No Feels Safe at Home: Yes Safety Concerns: Feels Safe At This Time Diet: regular caffeine: No Dental Care, Regularly: Yes Physical Activity Frequency: Does not Exercise Do you think of yourself as: straight/heterosexual Gender Identity: Male Assistive Devices: Glasses and Hearing Aid - Bilateral Allergies Allergies Allergy/AdvReac Type Severity Reaction Status Date / Time No Known Allergies Allergy Unverified 11/15/24 16:03 Home Meds Home Medications Medication Instructions Recorded Confirmed fluticasone propionate 50 1 spray intranasal DAILY PRN 10/30/22 11/17/24 mcg/actuation nasal Congestion spray,suspension amlodipine 5 mg tablet 2.5 mg PO BID 11/07/24 11/17/24 Previous Rx's Medication Instructions Recorded ascorbic acid (vitamin C) 500 mg 500 mg PO QAM #90 caps 04/26/24 capsule atorvastatin 20 mg tablet 20 mg PO QAM #90 tabs 04/26/24 cholecalciferol (vitamin D3) 50 50 mcg PO QAM #90 caps 04/26/24 mcg (2,000 unit) capsule ferrous sulfate 325 mg (65 mg 325 mg PO QAM #90 tabs 04/26/24 iron) tablet (Feosol) empagliflozin 25 mg tablet 12.5 mg (1/2 x 25 mg) PO DAILY #30 04/27/24 tabs sodium zirconium cyclosilicate 10 10 g PO UD #11 ea 09/05/24 gram oral powder packet (Lokelma) sodium bicarbonate 650 mg tablet 650 mg PO DAILY #30 tabs 09/29/24 hydralazine 50 mg tablet 100 mg (2 x 50 mg) PO BID #120 tabs 11/07/24 lisinopril 10 mg tablet 20 mg (2 x 10 mg) PO DAILY #60 tabs 11/07/24 Results & Data (ED) Vital Signs Vital Signs - 24 hr 11/17/24 14:45 11/17/24 15:41 11/17/24 16:39 Temperature 36.6 C Temperature Source Temporal Artery Scan Pulse Rate 105 H 100 H Pulse Rate [Right] 103 H Respiratory Rate 18 18 Blood Pressure 179/71 H Blood Pressure [Right Arm] 170/83 H Blood Pressure Mean 107 Blood Pressure Mean [Right Arm] 112 Pulse Oximetry 96 97 Oxygen Delivery Method Room Air Room Air Sepsis Recent Fever Within 48 Hours No Sepsis New/Unexplained Change in Mental Status N/A Sepsis Action Taken by Nursing No Action Required Home Medications Current Medication List: was personally reviewed by me Laboratory Data Attestation: I reviewed the patient's lab results. 11/17/24 15:08 11/17/24 15:08 Lab Results 11/17/24 Range/Units 15:08 WBC 13.35 H (4.8-10.8) K/ul RBC 4.37 L (4.70-6.10) M/uL Hgb 13.6 L (14.0-18.0) g/dl Hct 41.4 L (42.0-52.0) % MCV 94.7 (80.0-100.0) fL MCH 31.1 (25.0-34.0) pg MCHC 32.9 (32.0-36.0) g/dL RDW Std Deviation 44.6 (36.4-46.3) fL RDW Coeff of Geri 13.0 (11.5-14.5) % Plt Count 250 (130-400) K/uL MPV 9.5 (9.4-12.4) fL Immature Gran % (Auto) 0.3 % Neut % (Auto) 68.9 % Lymph % (Auto) 18.6 % Howard % (Auto) 9.6 % Eos % (Auto) 1.9 % Baso % (Auto) 0.7 % Neut # (Auto) 9.21 H (1.40-6.50) K/uL Lymph # (Auto) 2.48 (1.20-3.40) K/uL Howard # (Auto) 1.28 H (0.11-0.59) K/uL Eos # (Auto) 0.25 (0.00-0.50) K/uL Baso # (Auto) 0.09 (0.00-0.20) K/uL Immature Gran # (Auto) 0.04 (0.01-0.20) K/uL PT 10.2 (9.0-12.0) Seconds INR 0.9 (0.9-1.1) APTT 29 (21-31) Seconds PTT Ratio 1.1 Sodium 140 (136-145) mmol/L Potassium 4.6 (3.5-5.1) mmol/L Chloride 113 H (98-107) mmol/L Carbon Dioxide 20 L (21-32) mmol/L Anion Gap 7 (3-11) BUN 59 H (6-23) mg/dl Creatinine 3.51 H (0.6-1.4) mg/dl Est Cr Clr Drug Dosing 16.0 ml/min eGFR 16.97 BUN/Creatinine Ratio 16.8 (10-20) Glucose 183 H (70-99(Fasting)) mg/dl Calcium 8.9 (8.6-10.3) mg/dl Magnesium 2.0 (1.7-2.4) mg/dl Total Bilirubin 0.3 (0.2-1.0) mg/dl AST 14 (13-39) U/L ALT 23 (7-52) U/L Alkaline Phosphatase 66 (34-104) U/L Troponin I High Sens 20.1 H (0-20) pg/ml Total Protein 6.3 (6.0-8.3) gm/dl Albumin 3.4 (3.4-5.0) gm/dl Globulin 2.9 (2.5-4.0) gm/dl Albumin/Globulin Ratio 1.2 (0.9-2) Administered Medications Amlodipine Besylate (Amlodipine Besylate 5 Mg Tab) 2.5 mg PO BID YAHIR Stop: 12/17/24 20:59 Last Admin: 11/17/24 21:06 Dose: 2.5 mg Documented By: HILARIA Heparin Sodium (Porcine) (Heparin Sod 5,000 Unit/0.5 Ml Vial) 5,000 units SQ Q12 YAHIR Stop: 12/17/24 20:59 Last Admin: 11/17/24 21:14 Dose: 5,000 units Documented By: HILARIA Hydralazine HCl (Hydralazine Tab 50 Mg Tab) 100 mg PO BID YAHIR Stop: 12/17/24 20:59 Last Admin: 11/17/24 21:05 Dose: 100 mg Documented By: HILARIA Insulin Aspart (Insulin Aspart Per Unit Charge) 0 units SC ACHS YAHIR Stop: 12/17/24 20:59 Last Admin: 11/17/24 21:05 Dose: Not Given Documented By: HILARIA Insulin Glargine (Lantus Per Unit Charge) 5 units SQ BID YAHIR Stop: 12/17/24 20:59 Last Admin: 11/17/24 21:14 Dose: Not Given Documented By: HILARIA Imaging Data Radiologist's Impression: Chest X-Ray 11/17/24 14:48 XR chest 1V portable HISTORY: 78 years-old Male Chest pain, nonspecific COMPARISON: 10/23/2022 TECHNIQUE: AP view of the chest FINDINGS: Cardiac loop recorder device. Heart is mildly enlarged. Mild chronic interstitial coarsening. No pneumothorax, pleural effusion or airspace consolidation. Degenerative changes of the shoulders and spine. IMPRESSION: No acute process. ACT 112: Negative or not required by law. The above report was generated using voice recognition software. It may contain grammatical, syntax or spelling errors. Electronically signed by: Abraham Yi M.D. 11/17/2024 3:47 PM Discharge Plan Visit Data Chief Complaint: Cardiac Assessment Stated Complaint: CARDIAC ASSESSMENT ED Provider: Glenroy Mcginnis Discharge Problem: CHB (complete heart block), CKD (chronic kidney disease), Elevated troponin Patient Disposition: Admitted As Inpatient Discharge Instructions Interventions: ED Discharge Assessment Last Done: 11/17/24 18:48 Discharge Problem: CKD (chronic kidney disease) Qualifiers: Chronic kidney disease stage: stage 4 (GFR 15-29) Qualified Code(s): N18.4 - Chronic kidney disease, stage 4 (severe)
--- NOTE | 2024-11-17 16:21 | Cardiology Consultation ---
Date of Consultation November 17, 2024 Assessment & Plan (1) Complete heart block: -14-minute episode occurred November 15, asymptomatic. -Case discussed at length with Dr. Young. -Recommend keeping the patient on a monitor over the weekend and place a permanent pacemaker Wednesday. -It Project Lead aware of the plan and will contact [employer]. -No indication for temporary wire at this time. -Could use transcutaneous pacemaker if needed over the weekend. (2) Trifascicular block: -New diagnosis as of July 2024. (3) HTN (hypertension): -Continue usual outpatient regimen. History of Present Illness History of Present Illness Mr. Monteiro is a 78-year-old male being admitted today because of an episode of complete heart block. This consultation was ordered to assist in his cardiac management. Of note, the patient is well-known to me from the outpatient setting. The patient's recent history began back in July when he experienced 2 brief, witnessed, unresponsive episodes lasting approximately 10 seconds. He was brought to the emergency room and admitted. His workup was unremarkable, except for identifying new trifascicular block. He was discharged home in stable fashion. He then wore a monitor for 2 weeks as an outpatient. This showed no evidence of a bradycardia dysrhythmia. An implantable loop recorder was placed in mid September. The patient was seen by Nils Wharton on November 15 for a device interrogation. This revealed 1 brief episode of Mobitz 2 while the patient was sleeping. However, we were contacted this afternoon by [employer] that the patient experienced a 14-minute episode of complete heart block and intermittent complete heart block at approximately 9:25 PM on November 15. We contacted the patient by telephone and asked that he come to the emergency room for further care. The patient was completely asymptomatic during the episode of complete heart block. He claims that he was sitting watching TV at that time. Currently, patient is resting comfortably in bed and without complaints. Past medical and surgical history 1. Hypertension 2. Hypercholesterolemia 3. Left ventricular perjury 4. Mild aortic insufficiency 5. Trifascicular blockOct2023 6. Loop recorderDecember 2013 7. Diabetes 8. Anemia of chronic disease 9. Renal cell carcinoma 10. Chronic renal failure 11. Vitamin D deficiency 12. BPH 13. Hearing deficit 14. Bilateral inguinal hernia repair 15. Partial nephrectomy 16. Tonsillectomy Social history and lives with his No tobacco Occasional alcohol Family history Noncontributory Review of systems A 10 point review of systems was undertaken and negative except that described above. Allergies Allergy/AdvReac Type Severity Reaction Status Date / Time No Known Allergies Allergy Unverified 11/15/24 16:03 Home Medications Medication Instructions Recorded Confirmed Type fluticasone propionate 50 1 spray intranasal DAILY PRN 10/30/22 11/15/24 History mcg/actuation nasal Congestion spray,suspension ascorbic acid (vitamin C) 500 mg 500 mg PO QAM #90 caps 04/26/24 11/15/24 Rx capsule atorvastatin 20 mg tablet 20 mg PO QAM #90 tabs 04/26/24 11/15/24 Rx cholecalciferol (vitamin D3) 50 50 mcg PO QAM #90 caps 04/26/24 11/15/24 Rx mcg (2,000 unit) capsule ferrous sulfate 325 mg (65 mg 325 mg PO QAM #90 tabs 04/26/24 11/15/24 Rx iron) tablet (Feosol) empagliflozin 25 mg tablet 12.5 mg (1/2 x 25 mg) PO DAILY #30 04/27/24 11/15/24 Rx tabs sodium zirconium cyclosilicate 10 10 g PO UD #11 ea 09/05/24 11/15/24 Rx gram oral powder packet (Lokelma) sodium bicarbonate 650 mg tablet 650 mg PO DAILY #30 tabs 09/29/24 11/15/24 Rx amlodipine 5 mg tablet 2.5 mg PO BID 11/07/24 11/15/24 History hydralazine 50 mg tablet 100 mg (2 x 50 mg) PO BID #120 tabs 11/07/24 11/15/24 Rx lisinopril 10 mg tablet 20 mg (2 x 10 mg) PO DAILY #60 tabs 11/07/24 11/15/24 Rx Patient History Medical History Hyperkalemia Metabolic acidosis Left inguinal hernia Acute kidney injury Perinephric hematoma Postoperative hematoma Diabetes Hypertension DM type 2 (diabetes mellitus, type 2) History of skin cancer Hearing deficit Hyperlipemia Surgical History H/O bilateral inguinal hernia repair (10/09/20) History of tooth extraction Hx of partial nephrectomy History of testicular mass excision History of prostate biopsy History of tonsillectomy and adenoidectomy History of vasectomy History of colonoscopy Family History Son Schizophrenia Sister Cancer Mother Heart disease Other No family history of adverse response to anesthesia Social History Smoking Status: Never smoker Second Hand Exposure: No; Do You Dip or Chew Tobacco: No; Hx Alcohol Use: Yes Alcohol type: wine Hx Substance Use: No Preferred Language: Chinese Communication Ability: Effective Visual Impairment: Limited Hearing Ability: Use of Hearing Aid Director Hardware Required: No Beliefs That Will Affect Care: None marital status: Current Living Situation: Spouse current occupational status: retired How many Children do You have: 4 Feels Safe at Home: Yes Diet: regular caffeine: No Dental Care, Regularly: Yes Physical Activity Frequency: Does not Exercise Do you think of yourself as: straight/heterosexual Gender Identity: Male Assistive Devices: Glasses and Hearing Aid - Bilateral Results & Data Vital Signs (Past 12 Hours) Vital Signs Temp Pulse Pulse Resp BP BP Pulse Ox 11/17/24 15:41 103 H 18 170/83 H 97 11/17/24 14:45 36.6 C 105 H 18 179/71 H 96 O2 Del Method 11/17/24 15:41 Room Air 11/17/24 14:45 Room Air Diagnostic Findings An echocardiogram performed on November 08 noted normal left ventricular systolic function with ejection fraction of 60 to 65%. There is mild LVH along with mild aortic and mitral regurgitation. EKG notes sinus tachycardia with a left anterior hemiblock and incomplete right bundle branch block. PG Care Time/CCT Total # of Minutes Spent Total Time Spent with Patient: Total time spent is greater than 50% in coordination of care (as documented) at patient's floor/unit and/or counseling patient: Coding Level of Care Code 95961 INT INP/OBS CARE 3/75MIN Diagnoses Complete heart block I44.2 Trifascicular block I45.3 Primary hypertension I10 Hypertension type: primary hypertension (3) HTN (hypertension) Hypertension type: primary hypertension Qualified Code(s): I10 - Essential (primary) hypertension
--- NOTE | 2024-11-17 16:40 | Electrocardiogram Report ---
Test Reason : Blood Pressure : */* mmHG Vent. Rate : 103 BPM Atrial Rate : 103 BPM P-R Int : 200 ms QRS Dur : 146 ms QT Int : 364 ms P-R-T Axes : 74 270 80 degrees QTcB Int : 476 ms Sinus tachycardia Right bundle branch block Left anterior fascicular block Bifascicular block Left ventricular hypertrophy with repolarization abnormality ( R in aVL ) Abnormal ECG When compared with ECG of 31-Jul-2024 23:58, OH interval has decreased Nonspecific T wave abnormality no longer evident in Inferior leads Confirmed by Carter Grayson ([id number]) on 11/17/2024 4:40:26 PM Referred By: Confirmed By: Carter Grayson
--- NOTE | 2024-11-17 16:44 | History & Physical Report ---
Date of Service November 17, 2024 Assessment & Plan (1) Complete heart block: Plan: 78-year-old male who is referred to the hospital for detection of complete heart block by loop recorder 2 days prior; he has been asymptomatic but had a loop recorder placed for syncopal episodes approximately 3-4 months ago. He is admitted to the hospital for monitoring while awaiting permanent pacemaker placement. Third-degree heart block Patient had a loop recorder placed due to syncopal episodes this past July. He has not had any recurrent syncope/presyncope since that time although notes "once in a while may be very minimally lightheaded " 14-minute episode on 11/15/2024 Patient was referred in by cardiology who are consulted. Patient will be admitted to PCU with pacer pads at bedside, anticipate permanent pacemaker placement 11/20/2024 He is not in heart block at time of admission and has been asymptomatic today EKG on admission: Sinus tachycardia, right bundle branch block, bifascicular block, NE 200, QTc borderline prolonged Admit to PCU. If third-degree/symptomatic heart block can trial atropine due to variable block, and if needed --> transcutaneously pace and contact cardiology for temporary TV placement versus urgent pacemaker placement. Otherwise we will watch and anticipate placement on Wednesday Minimal troponin elevation, suspect demand. 20.1 on admission, repeat pending. Clinically has been without chest pain at any point Hypertension Will temporarily held for renal dysfunction May use oral hydralazine additional p.o. as needed Do not use IV CCB/BB for acute control due to risk of precipitating third- degree heart block Hyperlipidemia Continue statin CKD 4 Baseline creatinine 33.3. Slightly above his usual range at 3.5 on admission. 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 Will continue lisinopril but hold this periprocedurally on Wednesday Continue sodium bicarbonate, hydralazine, Jardiance BMP daily DVT prophylaxis: Heparin subcu Disposition: PCU CODE STATUS: Full code Diet: Heart healthy, n.p.o. at midnight on 11/19 into 11/20 (2) DM type 2 (diabetes mellitus, type 2): (3) Hyperlipemia: History of Present Illness Primary Care Provider: Ralph Kinsey is a 78-year-old male with a past medical history of LVH, hypertension, hyperlipidemia, CKD 4, ASAEL, diverticulosis, BPH who was referred to the ER by cardiology after his outpatient Holter monitor showed intermittent third-degree heart block. He is asymptomatic at time of ER presentation and was called by his qa architect and recommended to come into the ER due to the mobile telemetry report. Old telemetry was placed due to history of trifascicular block and syncopal episodes. History of syncope this past July. No syncope since. Has a loop recorder due to this and was referred in due to detection of 3* HB No chest pain or chest pressure Rare lightheadness, no 'major' lightheadedness or syncope since July Takes BP medications No blood thinners, no aspirin or plaavix use Medical History: Reviewed Medications: Reviewed Surgical History: Reviewed Family history: Reviewed Allergies: Reviewed Social History: No tobacco use, rare social etoh use Code Status: Full Code Allergies Allergy/AdvReac Type Severity Reaction Status Date / Time No Known Allergies Allergy Unverified 11/15/24 16:03 Home Medications Medication Instructions Recorded Confirmed Type fluticasone propionate 50 1 spray intranasal DAILY PRN 10/30/22 11/17/24 History mcg/actuation nasal Congestion spray,suspension ascorbic acid (vitamin C) 500 mg 500 mg PO QAM #90 caps 04/26/24 11/17/24 Rx capsule atorvastatin 20 mg tablet 20 mg PO QAM #90 tabs 04/26/24 11/17/24 Rx cholecalciferol (vitamin D3) 50 50 mcg PO QAM #90 caps 04/26/24 11/17/24 Rx mcg (2,000 unit) capsule ferrous sulfate 325 mg (65 mg 325 mg PO QAM #90 tabs 04/26/24 11/17/24 Rx iron) tablet (Feosol) empagliflozin 25 mg tablet 12.5 mg (1/2 x 25 mg) PO DAILY #30 04/27/24 11/17/24 Rx tabs sodium zirconium cyclosilicate 10 10 g PO UD #11 ea 09/05/24 11/17/24 Rx gram oral powder packet (Lokelma) sodium bicarbonate 650 mg tablet 650 mg PO DAILY #30 tabs 09/29/24 11/17/24 Rx amlodipine 5 mg tablet 2.5 mg PO BID 11/07/24 11/17/24 History hydralazine 50 mg tablet 100 mg (2 x 50 mg) PO BID #120 tabs 11/07/24 11/17/24 Rx lisinopril 10 mg tablet 20 mg (2 x 10 mg) PO DAILY #60 tabs 11/07/24 11/17/24 Rx Past Med/Surg History Problem List (Updated 11/17/24 @ 16:17 by Carter Grayson MD) Complete heart block Implantable loop recorder present HTN (hypertension) Aortic insufficiency Moderate per 2017 ECHO Chronic kidney disease, stage 4 (severe) Trifascicular block Mental status change resolved (Acute) Recurrent episodes of unresponsiveness LVH (left ventricular hypertrophy) Acute kidney injury Proteinuria Hypercalcemia (Chronic) Nodular prostate with urinary obstruction (Acute) Renal mass Angiomyolipoma Reducible left inguinal hernia Encounter for pre-operative examination 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 AV block Preoperative cardiovascular examination Clear cell carcinoma of right kidney Pseudoaneurysm following procedure Vitamin D deficiency Iron deficiency anemia Stage 3b chronic kidney disease Hypercholesterolemia Per records Anemia of chronic disease BPH with obstruction/lower urinary tract symptoms Medical History Hyperkalemia Metabolic acidosis Left inguinal hernia Acute kidney injury Perinephric hematoma Postoperative hematoma Diabetes Hypertension DM type 2 (diabetes mellitus, type 2) History of skin cancer Hearing deficit Hyperlipemia Surgical History H/O bilateral inguinal hernia repair (10/09/20) History of tooth extraction Hx of partial nephrectomy History of testicular mass excision History of prostate biopsy History of tonsillectomy and adenoidectomy History of vasectomy History of colonoscopy Family History Son Schizophrenia Sister Cancer Mother Heart disease Other No family history of adverse response to anesthesia Social History Smoking Status: Never smoker Second Hand Exposure: No; Do You Dip or Chew Tobacco: No; Hx Alcohol Use: Yes Alcohol type: wine Hx Substance Use: No Preferred Language: Mongolian Communication Ability: Effective Visual Impairment: Limited Hearing Ability: Use of Hearing Aid Presetter Operator Required: No Beliefs That Will Affect Care: None marital status: Current Living Situation: Spouse current occupational status: retired How many Children do You have: 4 Feels Safe at Home: Yes Diet: regular caffeine: No Dental Care, Regularly: Yes Physical Activity Frequency: Does not Exercise Do you think of yourself as: straight/heterosexual Gender Identity: Male Assistive Devices: Glasses and Hearing Aid - Bilateral Review of Systems Review of Systems: General: A&Ox3. NAD. Cooperative. HEENT: Atraumatic, normocephalic. vision/hearing intact Pulm: CTAB A&P. -wheezes, -rales, -rhonchi. Symmetrical chest rise. No increased work of breathing. No respiratory distress. Cardiac: RRR, -mrg. Radial pulses intact and symmetrical. Abdominal: Nontender, nondistended, soft. BS present. Extremities: Warm and dry Results & Data Results & Data Vital Signs (Past 12 Hours) Vital Signs Temp Pulse Pulse Resp BP BP Pulse Ox 11/17/24 15:41 103 H 18 170/83 H 97 11/17/24 14:45 36.6 C 105 H 18 179/71 H 96 O2 Del Method 11/17/24 15:41 Room Air 11/17/24 14:45 Room Air PG Care Time/CCT Total # of Minutes Spent Total Time Spent with Patient: Total time spent is greater than 50% in coordination of care (as documented) at patient's floor/unit and/or counseling patient: Coding Level of Care Code 07775 INT INP/OBS CARE 3/75MIN Diagnoses Complete heart block I44.2 DM type 2 (diabetes mellitus, type 2) E11.9 Hyperlipemia E78.5
[2024-11-17] MEDS ORDERED: ATROPINE SULFATE 0.1 MG/ML 10ML SYR IV PRN (16:54)
[2024-11-17] MEDS ORDERED: DEXTROSE 50% 50 ML SYRINGE IV PRN (18:48)
[2024-11-17] MEDS ORDERED: CARBOHYDRATES FOR HYPOGLYCEMIA PO PRN (18:48)
[2024-11-17] MEDS ORDERED: GLUCAGON FOR INJ 1 MG VIAL SQ PRN (18:48)
[2024-11-17] MEDS ORDERED: ACETAMINOPHEN 325 MG TAB PO PRN (18:48)
[2024-11-17] MEDS ORDERED: GLUCOSE 40% GEL 15 GM TUBE PO PRN (18:48)
[2024-11-17] MEDS ORDERED: GLUCOSE 10 TAB/TUBE PO PRN (18:48)
[2024-11-17] MEDS: hydrALAZINE TAB 50 MG TAB PO SCH (21:05)
[2024-11-17] MEDS: INSULIN ASPART PER UNIT CHARGE SC SCH (21:05)
[2024-11-17] MEDS: amLODIPine BESYLATE 5 MG TAB PO SCH (21:06)
[2024-11-17] MEDS: LANTUS PER UNIT CHARGE SQ SCH (21:14)
[2024-11-17] MEDS: HEPARIN SOD 5,000 UNIT/0.5 ML VIAL SQ SCH (21:14)
[2024-11-18 07:00] LABS: Basophils # (auto) 0.08 K/uL (0.00-0.20); Basophils % (auto) 0.9 %; Eosinophils % (auto) 3.2 %; Immature Granulocytes # (auto) 0.04 K/uL (0.01-0.20); Immature Granulocytes % (auto) 0.4 %; Lymphocytes # (auto) 2.41 K/uL (1.20-3.40); Lymphocytes % (auto) 25.9 %; Mean Corpuscular Hemoglobin 31.5 pg (25.0-34.0); Mean Corpuscular Hgb Conc 33.3 g/dL (32.0-36.0); Mean Corpuscular Volume 94.5 fL (80.0-100.0); Mean Platelet Volume 9.7 fL (9.4-12.4); Monocytes # (auto) 0.97 K/uL (0.11-0.59); Monocytes % (auto) 10.4 %; Neutrophils # (auto) 5.51 K/uL (1.40-6.50); Neutrophils % (auto) 59.2 %; Platelet Count 207 K/uL (130-400); RDW Standard Deviation 44.7 fL (36.4-46.3); Red Blood Count 3.81 M/uL (4.70-6.10); White Blood Count 9.31 K/ul (4.8-10.8)
--- NOTE | 2024-11-18 07:13 | Hospitalist Progress Note ---
Date of Service November 18, 2024 Assessment & Plan (1) Complete heart block: Plan: 78-year-old male who is referred to the hospital for detection of complete heart block by loop recorder 2 days prior; he has been asymptomatic but had a loop recorder placed for syncopal episodes approximately 3-4 months ago. He is admitted to the hospital for monitoring while awaiting permanent pacemaker placement. Third-degree heart block Patient had a loop recorder placed due to syncopal episodes this past July. He has not had any recurrent syncope/presyncope since that time although notes "once in a while may be very minimally lightheaded " 14-minute episode on 11/15/2024 Patient was referred in by cardiology who are consulted. Patient will be admitted to PCU with pacer pads at bedside, anticipate permanent pacemaker placement 11/20/2024 No recurrent heart block overnight of 11/17 EKG on admission: Sinus tachycardia, right bundle branch block, bifascicular block, OR 200, QTc borderline prolonged Did you carry on PCU. If third-degree/symptomatic heart block can trial atropine due to variable block, and if needed --> transcutaneously pace and contact cardiology for temporary TV placement versus urgent pacemaker placement. Otherwise we will watch and anticipate placement on Wednesday Minimal troponin elevation, suspect demand. 20.1 on admission, repeat normalized. Clinically has been without chest pain at any point Hypertension Lisinopril temporarily held for renal dysfunction May use oral hydralazine additional p.o. as needed Do not use IV CCB/BB for acute control due to risk of precipitating third- degree heart block Hyperlipidemia Continue statin CKD 4 Baseline creatinine 33.3. Slightly above his usual range at 3.5 on admission. 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 Appears near euvolemic, slightly tacky mucous membranes. Trend BMP daily, oral intake encouraged Possible to of had impaired renal flow due to his third-degree heart block however he has not been symptomatic of this recently/since July so lower suspicion any has not been in heart block while on monitor overnight. ANCA, completment, LIANET 2 added to AM labs Prediabetes Seen at the bedside. Questions about why he was ordered SSI insulin and Lantus, reports he takes Jardiance for his kidneys. Does have a history of prediabetes with A1c approximately 6 and admitting BSG 183. Switched to SSI CF only and will reevaluate for additional as needed. DVT prophylaxis: Heparin subcu Disposition: PCU CODE STATUS: Full code Diet: Heart healthy, n.p.o. at midnight on 11/19 into 11/20 (2) DM type 2 (diabetes mellitus, type 2): (3) Hyperlipemia: Admission and Anticipated Discharge Date Admission Date: November 17, 2024 Subjective No overnight events. No return of third-degree heart block overnight. Was concerned about his GFR which is currently at about 16 which is slightly worse than his normal. Not an uric. Will continue to try drink water today. No chest pain, chest pressure, lightheadedness, dizziness, nausea, vomiting. No dysuria. Review of Systems Review of Systems: General: A&Ox3. NAD. Cooperative. HEENT: Atraumatic, normocephalic. vision/hearing intact Pulm: CTAB A&P. -wheezes, -rales, -rhonchi. Symmetrical chest rise. No increased work of breathing. No respiratory distress. Cardiac: RRR, -mrg. Radial pulses intact and symmetrical. Abdominal: Nontender, nondistended, soft. BS present. Extremities: Warm and dry Physical Exam Physical Exam: General: A&Ox3. NAD. Cooperative. HEENT: Atraumatic, normocephalic. Pulm: Symmetrical chest rise. No increased work of breathing. No respiratory distress. Cardiac: RRR, -mrg. Radial pulses intact and symmetrical. Abdominal: Nontender, nondistended, soft. BS present. Results & Data Results & Data Vital Signs (Past 12 Hours) Vital Signs Temp Pulse Pulse Resp BP Pulse Ox O2 Del Method 11/18/24 07:10 36.7 C 85 18 147/76 H 93 Room Air 11/18/24 02:37 37 C 87 13 131/63 96 Room Air 11/18/24 01:18 97 H 11/17/24 22:37 36.5 C 99 H 18 147/77 H 94 Room Air 11/17/24 21:10 104 H 11/17/24 21:00 36.5 C 99 H 20 177/99 H 96 Room Air PG Care Time/CCT Total # of Minutes Spent Total Time Spent with Patient: Total time spent is greater than 50% in coordination of care (as documented) at patient's floor/unit and/or counseling patient: Coding Level of Care Code 71441 SUB INP/OBS CARE 3/50MIN Diagnoses Complete heart block I44.2 DM type 2 (diabetes mellitus, type 2) E11.9 Hyperlipemia E78.5
[2024-11-18 07:23] LABS: BUN Creatinine Ratio 16.7 (10-20); Calcium 8.4 mg/dl (8.6-10.3); Creatinine Clr Calc Pharmacy 15.9 ml/min; Potassium 4.8 mmol/L (3.5-5.1)
[2024-11-18] MEDS: ATORVASTATIN 20 MG TAB PO SCH (08:21)
[2024-11-18] MEDS: SODIUM BICARBONATE 650 MG TAB PO SCH (08:22)
[2024-11-18] MEDS: CHOLECALCIFEROL 25 MCG (1000 UNITS) TAB PO SCH (08:22)
--- NOTE | 2024-11-18 11:55 | Cardiology Progress Note ---
Date of Service November 18, 2024 Assessment & Plan (1) Complete heart block: Plan: No further episodes of heart block, plan for pacemaker implantation on Wednesday. Continue on telemetry. (2) HTN (hypertension): Plan BP reasonable, avoiding aggressive control given risk of heart block/hypotension. Continue amlodipine/hydralazine. On no negative chronotropic medications Admission and Anticipated Discharge Date Admission Date: November 17, 2024 Subjective Uneventful night. No complaints, patient denies lightheadedness, palpitations, chest pain, or dyspnea. Telemetry showed sinus rhythm at 80-90 bpm. First-degree heart block, no higher levels of heart block or pauses seen. Physical Exam Physical Exam: No distress. BP 147/76 mmHg. Pulse 80 bpm and regular. Respirations 18 and unlabored. Skin: no ecchymoses or generalized lesions. HEENT: unremarkable. Neck: JVP at the clavicle at 90 degrees, no carotid bruits. Lungs: clear. Cardiac: regular rhythm, normal S1-2, no murmur. Abdomen: benign. Extremities: no edema, pulses intact. Neurologic: normal affect and conversation, nonfocal. Results & Data Vital Signs (Past 12 Hours) Vital Signs Temp Pulse Pulse Resp BP Pulse Ox O2 Del Method 11/18/24 07:30 80 11/18/24 07:10 98.1 F 85 18 147/76 H 93 Room Air 11/18/24 02:37 98.6 F 87 13 131/63 96 Room Air 11/18/24 01:18 97 H Laboratory Results Hemoglobin 12, normal electrolytes, BUN 59, creatinine 3.53. PG Care Time/CCT Total # of Minutes Spent Total Time Spent with Patient: Total time spent is greater than 50% in coordination of care (as documented) at patient's floor/unit and/or counseling patient: Coding Level of Care Code 56433 SUB INP/OBS CARE 11/11MIN Diagnoses Complete heart block I44.2 Primary hypertension I10 Hypertension type: primary hypertension (2) HTN (hypertension) Hypertension type: primary hypertension Qualified Code(s): I10 - Essential (primary) hypertension
[2024-11-19 06:26] LABS: Basophils # (auto) 0.08 K/uL (0.00-0.20); Basophils % (auto) 0.9 %; Eosinophils # (auto) 0.31 K/uL (0.00-0.50); Eosinophils % (auto) 3.4 %; Hematocrit (blood only) 34.5 % (42.0-52.0); Hemoglobin 11.6 g/dl (14.0-18.0); Immature Granulocytes # (auto) 0.04 K/uL (0.01-0.20); Immature Granulocytes % (auto) 0.4 %; Lymphocytes # (auto) 2.12 K/uL (1.20-3.40); Lymphocytes % (auto) 23.1 %; Mean Corpuscular Hemoglobin 31.9 pg (25.0-34.0); Mean Corpuscular Hgb Conc 33.6 g/dL (32.0-36.0); Mean Corpuscular Volume 94.8 fL (80.0-100.0); Mean Platelet Volume 10.2 fL (9.4-12.4); Monocytes # (auto) 1.01 K/uL (0.11-0.59); Neutrophils # (auto) 5.63 K/uL (1.40-6.50); Neutrophils % (auto) 61.2 %; Platelet Count 214 K/uL (130-400); RDW Coefficient of Variation 12.9 % (11.5-14.5); RDW Standard Deviation 44.7 fL (36.4-46.3); Red Blood Count 3.64 M/uL (4.70-6.10); White Blood Count 9.19 K/ul (4.8-10.8)
[2024-11-19 06:41] LABS: BUN Creatinine Ratio 18.2 (10-20); Calcium 8.4 mg/dl (8.6-10.3); Potassium 4.7 mmol/L (3.5-5.1)
--- NOTE | 2024-11-19 13:59 | Hospitalist Progress Note ---
Date of Service November 19, 2024 Assessment & Plan (1) Complete heart block: Plan: 78-year-old male who is referred to the hospital for detection of complete heart block by loop recorder 2 days prior; he has been asymptomatic but had a loop recorder placed for syncopal episodes approximately 3-4 months ago. He is admitted to the hospital for monitoring while awaiting permanent pacemaker placement. Third-degree heart block Patient had a loop recorder placed due to syncopal episodes this past July. He has not had any recurrent syncope/presyncope since that time although notes "once in a while may be very minimally lightheaded " 14-minute episode on 11/15/2024 Patient was referred in by cardiology who are consulted. Patient will be admitted to PCU with pacer pads at bedside, anticipate permanent pacemaker placement 11/20/2024 No recurrent heart block overnight of 11/17 EKG on admission: Sinus tachycardia, right bundle branch block, bifascicular block, SC 200, QTc borderline prolonged Did you carry on PCU. If third-degree/symptomatic heart block can trial atropine due to variable block, and if needed --> transcutaneously pace and contact cardiology for temporary TV placement versus urgent pacemaker placement. Otherwise we will watch and anticipate placement on Wednesday Minimal troponin elevation, suspect demand. 20.1 on admission, repeat normalized. Clinically has been without chest pain at any point Hypertension Lisinopril temporarily held for renal dysfunction May use oral hydralazine additional p.o. as needed Do not use IV CCB/BB for acute control due to risk of precipitating third- degree heart block Hyperlipidemia Continue statin CKD 4 Baseline creatinine 33.3. Slightly above his usual range at 3.5 on admission. 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 Appears near euvolemic, slightly tacky mucous membranes. Creatinine/GFR is at baseline 2/2, lisinopril resumed ANCA, completment, LIANET 2 added to AM labs Prediabetes history of prediabetes with initial mildly hyperglycemic A1c. Initially was on SSI/Lantus, to scaled back to CF only. Has not needed any doses, will discontinue checks and follow BMP daily DVT prophylaxis: Heparin subcu Disposition: PCU CODE STATUS: Full code Diet: Heart healthy, n.p.o. tonight (2) DM type 2 (diabetes mellitus, type 2): (3) Hyperlipemia: Admission and Anticipated Discharge Date Admission Date: November 17, 2024 Subjective Bedside this morning. He is pleased that his GFR has increased slightly today with staying hydrated. BSG's have remained very well-controlled, can defer these today and continue diet control but will check tomorrow morning prior to pacer placement to optimize to goal of [id number] and minimize risk of infection. Patient agreeable with this. No fevers chills or sweats overnight. No chest pain or lightheadedness overnight. Reviewed telemetry, no recurrent heart block overnight Remains on monitoring pending pacer placement tomorrow. N.p.o. at midnight. Discussed with patient who understands he should not have anything to eat or drink after midnight. Physical Exam Physical Exam: General: A&Ox3. NAD. Cooperative. HEENT: Atraumatic, normocephalic. Vision and hearing grossly intact Pulm: Symmetrical chest rise. No increased work of breathing. No respiratory distress. Cardiac: RRR, -mrg. Radial pulses intact and symmetrical. Abdominal: Nontender, nondistended, soft. BS present. Results & Data Results & Data Vital Signs (Past 12 Hours) Vital Signs Temp Pulse Pulse Resp BP BP Pulse Ox 11/19/24 11:54 36.6 C 89 18 151/76 H 94 11/19/24 08:10 36.4 C L 88 18 141/69 H 94 11/19/24 07:44 87 151/73 H 11/19/24 07:28 79 11/19/24 02:52 36.7 C 88 20 139/70 94 O2 Del Method 11/19/24 11:54 Room Air 11/19/24 08:10 Room Air 11/19/24 07:44 11/19/24 07:28 11/19/24 02:52 Room Air PG Care Time/CCT Total # of Minutes Spent Total Time Spent with Patient: Total time spent is greater than 50% in coordination of care (as documented) at patient's floor/unit and/or counseling patient: Coding Level of Care Code 29577 SUB INP/OBS CARE 2/35MIN Diagnoses Complete heart block I44.2 DM type 2 (diabetes mellitus, type 2) E11.9 Hyperlipemia E78.5
[2024-11-19] MEDS: lisinopril 10 MG TAB PO SCH (14:31)
--- NOTE | 2024-11-19 15:16 | Cardiology Progress Note ---
Date of Service November 19, 2024 Assessment & Plan (1) Complete heart block: Plan: No further episodes of heart block, plan for pacemaker implantation on Wednesday. Continue on telemetry. (2) HTN (hypertension): Plan: BP acceptable on lisinopril and amlodipine. Plan BP reasonable, avoiding aggressive control given risk of heart block/hypotensi on. Continue amlodipine/hydralazine. On no negative chronotropic medications Admission and Anticipated Discharge Date Admission Date: November 17, 2024 Subjective Uneventful night. Feels well, no complaints. Denies chest pain, palpitations, lightheadedness, or dyspnea. Telemetry showed sinus rhythm 90-100 bpm. First-degree heart block, no higher levels of heart block or pauses seen. Physical Exam Physical Exam: No distress. BP 151/76 mmHg. Pulse 83 bpm and regular. Respirations 18 and unlabored. Skin: no ecchymoses or generalized lesions. HEENT: unremarkable. Neck: JVP at the clavicle at 90 degrees, no carotid bruits. Lungs: clear. Cardiac: regular rhythm, normal S1-2, no murmur. Abdomen: benign. Extremities: no edema, pulses intact. Neurologic: normal affect and conversation, nonfocal. Results & Data Vital Signs (Past 12 Hours) Vital Signs Temp Pulse Pulse Resp BP BP Pulse Ox 11/19/24 14:26 83 11/19/24 11:54 97.9 F 89 18 151/76 H 94 11/19/24 08:10 97.5 F L 88 18 141/69 H 94 11/19/24 07:44 87 151/73 H 11/19/24 07:28 79 O2 Del Method 11/19/24 14:26 11/19/24 11:54 Room Air 11/19/24 08:10 Room Air 11/19/24 07:44 11/19/24 07:28 Laboratory Results Hemoglobin 11.6 with normal platelet count and white count. Normal electrolytes, BUN 60, creatinine 3.29 (down from 3.53). PG Care Time/CCT Total # of Minutes Spent Total Time Spent with Patient: Total time spent is greater than 50% in coordination of care (as documented) at patient's floor/unit and/or counseling patient: Coding Level of Care Code 71372 SUB INP/OBS CARE 11/11MIN Diagnoses Complete heart block I44.2 Primary hypertension I10 Hypertension type: primary hypertension (2) HTN (hypertension) Hypertension type: primary hypertension Qualified Code(s): I10 - Essential (primary) hypertension
[2024-11-20 06:53] LABS: Basophils # (auto) 0.09 K/uL (0.00-0.20); Basophils % (auto) 0.8 %; Eosinophils # (auto) 0.49 K/uL (0.00-0.50); Eosinophils % (auto) 4.6 %; Hematocrit (blood only) 36.8 % (42.0-52.0); Hemoglobin 12.1 g/dl (14.0-18.0); Immature Granulocytes # (auto) 0.05 K/uL (0.01-0.20); Immature Granulocytes % (auto) 0.5 %; Lymphocytes # (auto) 2.56 K/uL (1.20-3.40); Mean Corpuscular Hemoglobin 31.5 pg (25.0-34.0); Mean Corpuscular Hgb Conc 32.9 g/dL (32.0-36.0); Mean Corpuscular Volume 95.8 fL (80.0-100.0); Mean Platelet Volume 9.8 fL (9.4-12.4); Monocytes # (auto) 1.19 K/uL (0.11-0.59); Monocytes % (auto) 11.1 %; Platelet Count 208 K/uL (130-400); RDW Coefficient of Variation 12.9 % (11.5-14.5); RDW Standard Deviation 45.2 fL (36.4-46.3); Red Blood Count 3.84 M/uL (4.70-6.10); White Blood Count 10.68 K/ul (4.8-10.8)
[2024-11-20 07:11] LABS: Calcium 8.6 mg/dl (8.6-10.3); Creatinine Clr Calc Pharmacy 15.9 ml/min; Potassium 4.8 mmol/L (3.5-5.1)
--- NOTE | 2024-11-20 09:55 | Hospitalist Progress Note ---
Date of Service November 20, 2024 Assessment & Plan (1) Complete heart block: Plan: 78-year-old male who is referred to the hospital for detection of complete heart block by loop recorder 2 days prior; he has been asymptomatic but had a loop recorder placed for syncopal episodes approximately 3-4 months ago. He is admitted to the hospital for monitoring while awaiting permanent pacemaker placement. Third-degree heart block Patient had a loop recorder placed due to syncopal episodes this past July. He has not had any recurrent syncope/presyncope since that time although notes "once in a while may be very minimally lightheaded " 14-minute episode on 11/15/2024 Minimal troponin elevation, suspect demand. 20.1 on admission, repeat normalized. Clinically has been without chest pain at any point - s/p permanent pacemaker placement 11/20/24 Hypertension Lisinopril again held for rise in Cr. BP is elevated above goal, HR is elevated. Clinically near euvolemic - s/p pacemaker placement. Given inadequate BP control and limitation of KENDALL/ARB, will start MTP 12.5mg tartrate BID. Once renal function stable/baseline can re-evaluate to resume lisinopril for renal protection at dose reduction May use oral hydralazine or uptitrate additional MTP as needed CKD 4 Baseline creatinine 33.3. Slightly above his usual range at 3.5 on admission. History of right partial nephrectomy due to RCC Continue sodium bicarbonate BMP daily ANCA, completment, LIANET 2 added to AM labs - Water intake encouraged post procedure Hyperlipidemia Continue statin Prediabetes history of prediabetes with initial mildly hyperglycemic A1c. Initially was on SSI/Lantus, to scaled back to CF only. Has not needed any doses, will discontinue checks and follow BMP daily DVT prophylaxis: Heparin subcu Disposition: PCU, may downgrade to M/T post pacer placement CODE STATUS: Full code Diet: Heart healthy (2) DM type 2 (diabetes mellitus, type 2): (3) Hyperlipemia: Admission and Anticipated Discharge Date Admission Date: November 17, 2024 Subjective Seen post pacer placement DOing well, eating lunch Some postop discomfort at incision site, otherwise well No lightheadedness, dizziness, dyspnea Voiding normally Physical Exam 2 Physical Exam: General: A&Ox3. NAD. Cooperative. HEENT: Atraumatic, normocephalic. Vision and hearing grossly intact Pulm: Symmetrical chest rise. No increased work of breathing. No respiratory distress. THorax: L thorax with surgical dressing overlying pacer side. C/D/I Cardiac: RRR, -mrg. Radial pulses intact and symmetrical. Abdominal: Nontender, nondistended, soft. BS present. Results & Data Results & Data Vital Signs (Past 12 Hours) Vital Signs Temp Pulse Pulse Resp BP BP Pulse Ox 11/20/24 08:00 36.5 C 85 18 140/79 94 11/20/24 05:58 81 11/20/24 02:51 36.8 C 83 20 134/67 96 11/19/24 22:36 36.8 C 88 20 137/73 95 O2 Del Method 11/20/24 08:00 Room Air 11/20/24 05:58 11/20/24 02:51 Room Air 11/19/24 22:36 Room Air PG Care Time/CCT Total # of Minutes Spent Total Time Spent with Patient: Total time spent is greater than 50% in coordination of care (as documented) at patient's floor/unit and/or counseling patient: Coding Level of Care Code 64165 SUB INP/OBS CARE 3/50MIN Diagnoses Complete heart block I44.2 DM type 2 (diabetes mellitus, type 2) E11.9 Hyperlipemia E78.5
--- NOTE | 2024-11-20 11:43 | Pre Anesthesia Assessment ---
Date of Service November 20, 2024 Pre Sedation Assessment Vital Signs Temp Pulse Pulse Pulse Resp BP BP 11/20/24 10:57 90 18 175/91 H 11/20/24 08:00 36.5 C 85 18 140/79 11/20/24 07:35 11/20/24 05:58 81 11/20/24 02:51 36.8 C 83 20 134/67 11/19/24 22:36 36.8 C 88 20 137/73 11/19/24 21:45 88 11/19/24 19:17 36.9 C 81 20 144/79 H 11/19/24 15:36 36.6 C 78 17 140/70 11/19/24 14:26 83 11/19/24 11:54 36.6 C 89 18 151/76 H Pulse Ox O2 Del Method 11/20/24 10:57 97 Room Air 11/20/24 08:00 94 Room Air 11/20/24 07:35 Room Air 11/20/24 05:58 11/20/24 02:51 96 Room Air 11/19/24 22:36 95 Room Air 11/19/24 21:45 11/19/24 19:17 95 Room Air 11/19/24 15:36 95 Room Air 11/19/24 14:26 11/19/24 11:54 94 Room Air Cardiovascular + regular rate and + regular rhythm Respiratory + respiratory effort normal Pre-Sedation Airway Assessment Smoking Status: Never smoker Hx Sleep Apnea: No Hx Difficult Intubation: No Short, Thick Neck: No Thyromental Distance: > or= 3.5 Finger Breadths Oral Cavity: + WNL Mallampati Class: III ASA: ASA3 NPO Status Date of Last Intake of Fluids: 11/19/24 Time of Last Intake of Fluids: 20:00 Date of Last Intake of Solid Food: 11/19/24 Time of Last Intake of Solid Foods: 20:00 Procedure Planning Contraindications for Sedation: none Current Medications Reviewed: Yes Notes The planned sedation has been discussed with the patient. Informed Consent was obtained. I have identified the patient, determined the appropriateness of sedation and have assessed the patient immediately prior to the procedure. All medicine(s) and interventions are by my order.
[2024-11-20] MEDS: BUPIVACAINE 0.25% PF 30 ML VIAL ONE (12:00)
[2024-11-20] MEDS: LIDOCAINE 1% LOCAL 20 ML VIAL ONE (12:00)
[2024-11-20] MEDS: VANCOMYCIN HCL 1000MG/20ML VIAL ONE (12:00)
[2024-11-20] MEDS: WATER, STERILE FOR INJ 10 ML VIAL ONE (12:01)
[2024-11-20] MEDS: ceFAZolin 330 MG/ML 1 GM VIAL ONE (12:01)
[2024-11-20] MEDS ORDERED: oxyCODONE HCL IR 5 MG TAB (IMMEDIATE RELEASE) PO PRN (12:51)
--- NOTE | 2024-11-20 12:52 | Post Anesthesia Assessment ---
Date of Service November 20, 2024 Post Sedation Assessment Vital Signs Temp Pulse Pulse Pulse Resp BP BP 11/20/24 10:57 90 18 175/91 H 11/20/24 08:00 36.5 C 85 18 140/79 11/20/24 07:35 11/20/24 05:58 81 11/20/24 02:51 36.8 C 83 20 134/67 11/19/24 22:36 36.8 C 88 20 137/73 11/19/24 21:45 88 11/19/24 19:17 36.9 C 81 20 144/79 H 11/19/24 15:36 36.6 C 78 17 140/70 11/19/24 14:26 83 Pulse Ox O2 Del Method 11/20/24 10:57 97 Room Air 11/20/24 08:00 94 Room Air 11/20/24 07:35 Room Air 11/20/24 05:58 11/20/24 02:51 96 Room Air 11/19/24 22:36 95 Room Air 11/19/24 21:45 11/19/24 19:17 95 Room Air 11/19/24 15:36 95 Room Air 11/19/24 14:26 Recovery Score Activity: Moves 4 extremities Respiration: Deep Breath/Cough Circulation: +/-20-49% PreAnes Value Consciousness: Fully Awake Oxygen Saturation: O2 needed for >90% Discharge Sedation Level of Care: Fast Track Phase II Post Sedation Plan On clinical assessment, the patient appears to have tolerated the sedation without complications. Patient is recovering as anticipated. Patient will continue to be monitored by nursing and may be discharged when sedation discharge criteria are met per below protocol. Upon Completions of procedure up to 15 minutes continue every 5 minute vital signs and the P.A.R. score; then discharge to a Phase I or Fast Track to Phase II per the following guidelines: * Discharge Patient to appropriate Phase II area if PAR is 8 or greater or return to pre- procedure baseline. The post - procedure orders will be as directed. * If PAR score is less than 8 or not return to pre-procedure baseline then patient will follow Phase I monitoring till PAR is reached for Phase II. The Phase I may be done in procedure room or may call to secure a Phase I area. * If naloxone or flumazenil are used for reversal, hold in Phase I for continued monitoring from when last reversal dose was given for a minimum of 60 minutes or longer pending the nurse and/or physician discretion of patient condition before discharge to Phase II. Please call the Sedation Physician to re-evaluate and complete post-note for discharge to Phase II area. Do NOT discharge from procedure sedation or Phase 1 until post- sedation evaluation note is complete by procedure /sedation MD Sedation Discharge Instructions to be given to the patient at discharge to home.
--- NOTE | 2024-11-20 12:55 | Electrophysiology Report ---
Date of Service November 20, 2024 Electrophysiology Procedure Electrophysiology Procedure Report Procedure performed: Implantation of dual-chamber permanent pacemaker with left bundle pacing lead Staff transmission builder: Jan Young MD Indication: The patient is a 78-year-old gentleman with a history of syncope and recently documented complete heart block. He was felt to be a good candidate for a permanent pacemaker due to symptomatic nonreversible AV node dysfunction. A dual-chamber device was selected is currently in sinus rhythm and wished to maintain AV synchrony. Procedure in detail: The patient was informed of the risks benefits and alternatives to the intended procedure and she wished to proceed. He was taken to the electrophysiology suite in a fasting state. A preoperative antibiotic had been administered. The patient was monitored electrocardiographically throughout today's procedure and conscious sedation was administered per protocol. The left upper pectoral area was prepped and draped in usual sterile fashion. This area was anesthetized using subcutaneous administration of a xylocaine solution. An incision was made at this site and carried down to the prepectoralis fascia using sharp dissection. Electrocautery was also employed for dissection as well as for hemostasis. A device pocket was fashioned tissues above the pectoralis muscle. Subsequent to this maneuver the left axillary vein was accessed using modified Seldinger technique. A sheath was placed over guidewire and used to facilitate passage of a guiding catheter for mapping of the interventricular septum. Once an appropriate location was identified a pacing lead was advanced into the interventricular septum until the appropriate electrophysiologic characteristics were obtained. At this point the guiding catheter was removed. The proximal portion of the lead was then sutured the prepectoralis fascia using nonabsorbable suture. A sheath was placed over the remaining guidewire and used to facilitate passage of a pacing lead to the right atrium under fluoroscopic guidance. Adequate sensing and threshold parameters were obtained prior to active fixation of this lead to the endocardial surface. The proximal portion of the leads were then sutured the prepectoral fascia using nonabsorbable suture. The device pocket was irrigated with antibiotic solution. The leads were then attached to the device. The device and leads were then placed in the pocket and pocket was closed in 3 layers of absorbable suture. Steri-Strips and sterile dressing were applied. The device was tested noninvasively prior to conclusion the procedure. The patient tolerated procedure well there no immediate complications. Equipment used: New pulse generator: Leaflet [employer] [facility]. Model number: [id number] serial number [id number] Right atrial lead: Leaflet Or [employer] Del[employer]rer [employer]. Model number: 5076 serial number [id number] Right ventricular lead: Leaflet [employer] Del[employer]rer [employer]. Model number: 3830 serial number [id number] Measured data: Right atrial lead: P waves measured 2.5 mV. Pacing threshold is 1.5 V at 0.4 ms with paced impedance of 627 ohms Right ventricular lead: R waves measured 6.4 mV. Pacing threshold was 1.25 V at 0.4 ms with a pacing appearance of 722 ohms Impression: Successful implantation of dual-chamber permanent pacemaker with left bundle pacing lead [facility] Electrophysiology codes Pacing Procedure 1: Pacin Insert/Replace Pacer A & V PG Moderate Sedation Codes Moderate Sedation Codes Procedure 1: Sedation/Anesthesia: 33196 Mod Sedation by the same physician;Init15 Min Child Age 5 & Up Procedure 2: Sedation/Anesthesia: 20795 Mod Sedation by the same physician; Ea [id number] Minutes
[2024-11-20] MEDS: MIDAZOLAM HCL 5 MG/ML 1 ML VIAL ONE (12:57)
[2024-11-20] MEDS: fentaNYL citrate PF 100 MCG/2 ML VIAL ONE (12:57)
[2024-11-20] MEDS: METOPROLOL TARTRATE 25 MG TAB PO SCH (15:19)
--- NOTE | 2024-11-20 16:15 | XRay Report ---
Clinical History: Rule out pneumothorax Technique: PA and lateral views of the chest were obtained Findings: There are no confluent pulmonary infiltrates. The heart size is within normal limits. No pleural effusion or pneumothorax is seen. There is no definite pulmonary nodule. No fracture is noted. There is a left chest wall pacemaker device Impression: No definite pneumothorax or other acute pathology Electronically signed by Sebas Masters 11-20-2024 4:14 PM
--- NOTE | 2024-11-20 17:18 | Electrophysiology Report ---
Date of Service November 20, 2024 Electrophysiology Procedure Electrophysiology Procedure Report Procedure performed: Removal of patient activated loop recorder Staff statement request clerk: Jan Young MD Indication: The patient is a 78-year-old gentleman with a prior history of syncope who had undergone implantation of patient activated loop recorder. This documented complete heart block. Patient underwent implantation of dual-chamber permanent pacemaker in the loop recorder was removed Procedure in detail The patient was informed the risks benefits and alternatives to the intended procedure. He understood which proceed. This procedure was performed during his dual-chamber pacemaker implant on the same date. The area over the previously implanted device was anesthetized using subcutaneous menstruation of lidocaine and Marcaine solution. A small incision was made at this site and carried down to the previously implanted device using sharp dissection. The previously implanted loop recorder was then grasped with a hemostat and removed. The resulting small incision was closed with two 4-0 Vicryl sutures followed by a Steri-Strips and a sterile dressing. The patient tolerated procedure well. There were no immediate complications. Equipment: Explanted pulse generator: Full [employer]ator Operator [employer]. Model number LNQ 22 serial number [id number] [facility] Electrophysiology codes Implantable Monitors Procedure 1: Implantable Monitors: [id number] Loop Recorder Explant
--- NOTE | 2024-11-20 17:22 | Electrocardiogram Report ---
Test Reason : Blood Pressure : */* mmHG Vent. Rate : 90 BPM Atrial Rate : 90 BPM P-R Int : 210 ms QRS Dur : 148 ms QT Int : 402 ms P-R-T Axes : 64 270 52 degrees QTcB Int : 491 ms Sinus rhythm with 1st degree A-V block Left axis deviation Right bundle branch block Abnormal ECG When compared with ECG of 17-Nov-2024 15:02, No significant change was found Confirmed by Jefry Feliz ([id number]) on 11/20/2024 5:22:02 PM Referred By: Carter Grayson Confirmed By: Jefry Feliz
[2024-11-20] MEDS: ceFAZolin 1000MG 1,000 MG/7.5 ML SYR IV ONE (21:26)
[2024-11-21 06:25] LABS: Basophils # (auto) 0.08 K/uL (0.00-0.20); Basophils % (auto) 0.6 %; Eosinophils # (auto) 0.32 K/uL (0.00-0.50); Eosinophils % (auto) 2.5 %; Hematocrit (blood only) 38.3 % (42.0-52.0); Hemoglobin 12.9 g/dl (14.0-18.0); Immature Granulocytes # (auto) 0.06 K/uL (0.01-0.20); Immature Granulocytes % (auto) 0.5 %; Lymphocytes # (auto) 2.12 K/uL (1.20-3.40); Lymphocytes % (auto) 16.5 %; Mean Corpuscular Hemoglobin 31.8 pg (25.0-34.0); Mean Corpuscular Hgb Conc 33.7 g/dL (32.0-36.0); Mean Corpuscular Volume 94.3 fL (80.0-100.0); Mean Platelet Volume 9.8 fL (9.4-12.4); Monocytes % (auto) 10.9 %; Neutrophils # (auto) 8.84 K/uL (1.40-6.50); Platelet Count 213 K/uL (130-400); RDW Coefficient of Variation 12.8 % (11.5-14.5); RDW Standard Deviation 44.1 fL (36.4-46.3); Red Blood Count 4.06 M/uL (4.70-6.10); White Blood Count 12.82 K/ul (4.8-10.8)
[2024-11-21 06:37] LABS: BUN Creatinine Ratio 16.9 (10-20); Calcium 8.7 mg/dl (8.6-10.3); Creatinine Clr Calc Pharmacy 14.6 ml/min
[2024-11-21 11:02] VITALS: BP 146/70; PULSE 72; RESP 14; TEMP 98.4; O2SAT 94
--- NOTE | 2024-11-21 12:37 | Discharge Summary ---
Discharge Summary Date of Service November 21, 2024 Principal Dx & Hospital Course #1 = Principal Diagnosis (1) Complete heart block: 78 years old male with PMH of FULL CODE @ home, overweight with BMI 26.2 (height 5' 7"; weight 76.0 kg), hyperlipidemia, HTN, CKD stage IV, prediabetes, chronic normocytic, normochromic anemia with baseline Hb range, 11.7 - 12.9 g/dL (06/06/2020 - 09/26/2024), and renal cell clear cell carcinoma, s/p right partial nephrectomy, who was referred to [facility] on 11/17/2024 with a diagnosis of complete heart block by loop recorder 2 days prior to admission date 11/17/2024; of note, patient remained asymptomatic, but had a loop recorder placed for syncopal episodes approximately 3-4 months ago in 2023. Patient was subsequently admitted to [facility] on 11/17/2024 for monitoring of complete heart block while awaiting permanent pacemaker placement. The following medical issues were addressed while the patient remained in [facility] from 11/17/2024 to 11/21/2024: Third-degree heart block Patient had a loop recorder placed due to syncopal episodes in July 2024. He has not had any recurrent syncope/presyncope since that time although notes "once in a while may be very minimally lightheaded " 14-minute episode on 11/15/2024 Minimal troponin elevation, suspect demand. 20.1 on admission, repeat normalized. Clinically has been without chest pain at any point - s/p permanent pacemaker insertion with concomitant removal of loop recorder on 11/20/2024 with [facility] Interventional CARDS Dr. Jan Young. Patient r eports that he is scheduled to follow up with Dr. Young on Wednesday (11/24/2024) for a routine checkup visit. Hypertension Lisinopril again held for rise in Cr. BP is elevated above goal, HR is elevated. Clinically near euvolemic - s/p pacemaker placement. Given inadequate BP control and limitation of KENDALL/ARB, patient was started on metoprolol tartrate 12.5mg PO bid on 11/20/2024, 2:15pm. Patient's BP control is satisfactory with discharge BP 146/72 (11/21/2024, 11:28am). Patient's [id number] received an electronic prescription for metoprolol tartrate 12.5mg PO bid, #60 tablets, no refills, on 11/21/2024, prior to hospital discharge home on 11/21/2024. Patient will also continue with his home-scheduled amlodipine 2.5mg PO bid and hydralazine 100mg PO bid on hospital discharge home on 11/21/2024. Patient will also resume his home-scheduled lisinopril 20mg PO daily on hospital discharge home on 11/21/2024. Chronic diastolic CHF with preserved LVEF 60% and grade I LV diastolic dysfunction (as reported on 09/27/2023, 4:29pm TTE, CARDS Dr. Neo Stockton) - cf., repeat TTE (11/08/2024, 11:05am, CARDS Dr. Carter Grayson)(of note, in this 11/08/2024, 11:05am TTE, there is no mention of LV diastolic function remaining at grade I diastolic dysfunction, or of LV diastolic function improving/resolving to normal diastolic function). In any event, patient received medical management of chronic diastolic CHF by adhering to a 2 gram Na diet, daily weights, strict I/O, hospital-started metoprolol tartrate 12.5mg PO bid, and home-scheduled hydralazine 100mg PO bid. Patient will also resume his home-scheduled lisinopril 20mg PO daily on hospital discharge home on 11/21/2024. CKD 4 Progressively increasing baseline creatinine, ranging from 2.18 (06/29/2020) to 3.08 (09/26/2024). - While in [facility], patient's creatinine has increased from 3.51 (11/17/2024) to 3.84 (11/21/2024). History of right partial nephrectomy due to renal cell carcinoma. Patient reports that he will follow up with his own RENAL physician within 3-5 days of hospital discharge for repeat creatinine level testing as patient reports that he still produces copious urine and feels well and does not want to remain in [facility] for routine, repeat creatinine level testing in the days to come. Moreover, patient did not receive his home-scheduled lisinopril 20mg PO daily while in [facility] given potential for this medication to cause further renal em barrassment. Subsequently, patient will resume his home-scheduled lisinopril 20mg PO daily on hospital discharge home on 11/21/2024, and hence, patient reports that he will comply with repeat creatinine level testing within 3-5 days of hospital discharge. Hyperlipidemia Patient received his home-scheduled atorvastatin 20mg PO qam while in [facility]. Patient will continue this same medication on hospital discharge home on 11/21/2024. Prediabetes history of prediabetes with initial mildly hyperglycemic A1c. Initially was on SSI/Lantus, then scaled back to CF only. Patient did not require any subsequent doses; subsequently, POC glucose qac + qhs was discontinued and replaced with daily serum glucose level testing and has a discharge glucose level of 92 mg/dL (11/21/2024, 5:55am). Observe. Chronic normocytic, normochromic anemia with baseline Hb range, 11.7 - 12.9 g/dL (06/06/2020 - 09/26/2024) cf., admission Hb 13.6 g/dL, MCV 94.7, MCHC 32.9 (11/17/2024, 3:08pm). cf., discharge Hb 12.9 g/dL, MCV 94.3, MCHC 33.7 (11/21/2024, 5:55am). Patient reports no mucosal bleeding and remains hemodynamically stable. Etiology of chronic normocytic, normochromic anemia is most probably due to anemia of chronic disease (e.g., CKD stage IV). Of note, patient did [place] require any packed RBC transfusions [place] [facility] [place] Renal cell clear cell carcinoma, s/p right partial nephrectomy No recurrence as per patient's report. Observe. DVT prophylaxis: Heparin 5000 units SQ q12. Disposition: D/C home on 11/21/2024. CODE STATUS: Full code Diet: Heart healthy Discharge time, 35 minutes. Of this time period, 18 minutes were spent in coordinating patient's discharge. (2) DM type 2 (diabetes mellitus, type 2): See #1 above for details. (3) Hyperlipemia: See #1 above for details. Admission HPI Per Admitting Provider Tio is a 78-year-old male with a past medical history of LVH, hypertension, hyperlipidemia, CKD 4, ASAEL, diverticulosis, BPH who was referred to the ER by cardiology after his outpatient Holter monitor showed intermittent third-degree heart block. He is asymptomatic at time of ER presentation and was called by his precision instrument maker and repairer and recommended to come into the ER due to the mobile telemetry report. Old telemetry was placed due to history of trifascicular block and syncopal episodes. History of syncope this past July. No syncope since. Has a loop recorder due to this and was referred in due to detection of 3* HB No chest pain or chest pressure Rare lightheadness, no 'major' lightheadedness or syncope since July Takes BP medications No blood thinners, no aspirin or plaavix use Medical History: Reviewed Medications: Reviewed Surgical History: Reviewed Family history: Reviewed Allergies: Reviewed Social History: No tobacco use, rare social etoh use Code Status: Full Code Discharge Exam Constitutional General: comfortable, coherent, cooperative. Wide awake and alert. Not confused, lethargic, or obtunded. Patient speaks in complete, fluent, and articulate sentences without pause, interruption, cough, or wheeze. HEENT: NC/AT. EOMI, PERRL. No nystagmus, gaze paresis, anisocoria, miosis, mydriasis, hyphema, chemosis, scleral icterus, conjunctivitis, or pterygium. No otorrhea, no rhinorrhea. No pharyngeal discharge or erythema. Neck: Supple, no stridor, bruit, goiter, or hepatojugular reflux. Jugular venous pressure is estimated to be 8 cm above the sternal angle of Mane, which is typically 5 cm above the level of the right atrium. Hence, there is no jugular venous distention noted on discharge exam 11/21/2024. Lymphatics: No pre-post auricular, anterior/posterior cervical, supraclavicular/infraclavicular, axillary, epitrochlear, or inguinal adenopathy. Chest: Symmetric rise and fall with respirations. Non-tender to palpation. Heart: RRR, S1 and S2 noted. No S3 or S4 summation gallop noted. No tripartite friction rub. Grade II/ early systolic murmur @ LLSB without radiation to the carotids, axilla, or back, and which remains invariant in regards to the respiratory cycle. Lungs: Clear to auscultation and percussion. No audible expiratory wheeze, egophony, pectoriloquy, increase in tactile fremitus, or flatness/dullness to percussion at the bases. Abdomen: Soft, non-tender, non-distended. No rebound, guarding, Barbosa's sign, or organomegaly. Bowel sounds auscultated in all 4 quadrants. Extremities: No clubbing, cyanosis, or edema. 2+ pedal pulses bilaterally. Skin: No decubitus ulcer, exanthem, or enanthem. Neurology: Alert and oriented in regards to person, place, time, and situation. DTR+ and symmetric. 5/5 motor strength in all 4 extremities, both proximally and distally. No myoclonus, tremors, or tics. Urology: No campos catheter. No urethral discharge. Psychiatry: Appropriate affect. Smiles occasionally. No homicidal/suicidal ideation. Discharge Plan Discharge Items Patient Disposition: Home - Self-Care Reason For Visit: 3* HB Discharge Diagnosis: Third-degree heart block Condition on Discharge: Fair Activity: Per Instructions section Lifting Comment: No lifting left arm above shoulder behind neck for 6 weeks Bathing: Keep incision dry Bathing Comment: Keep wound dry and Steri-Strips intact until follow-up Non-emergency contact: Primary Care Provider and Director Credit Risk Call non-emergency contact if: you have any medication questions, your symptoms worsen and your pain is not controlled Follow-up/Referrals: Ralph Figueroa [Primary Care Provider] - 11/28/24 9:20 am (THIS APPOINTMENT WILL BE WITH DR RODARTE) Diet: Heart Healthy and Low Sodium (2gm) Addtl Attending Provider Instructions: Were seen in the hospital for a third-degree heart block detected on your loop recorder. You underwent permanent pacemaker placement with cardiology on 11/20/2024. You have not been prescribed any antibiotics. If you develop any new or worsening symptoms including fever, chills, sweats, chest pain, chest pressure, difficulty breathing, uncontrolled nausea/vomiting, rash, wheezing, passing out or nearly passing out, bleeding, black/bloody bowel movements, or other new or concerning symptoms please call your primary care physician, or call 911 for re-evaluation in the emergency department if you are very concerned. Addtl Youth Care Specialist Provider Instructions: May remove bulky outer dressings today. Leave Steri-Strips intact. Pending Studies at Discharge: No Stand-Alone Forms: My [facility], Smoking Cessation Medications and DC Order Prescriptions: New metoprolol tartrate 25 mg Tablet 12.5 mg PO BID Qty: 60 0RF Continued cholecalciferol (vitamin D3) 50 mcg (2,000 unit) capsule 50 mcg PO QAM Qty: 90 3RF ferrous sulfate [Feosol] 325 mg (65 mg iron) tablet 325 mg PO QAM Qty: 90 3RF ascorbic acid (vitamin C) 500 mg capsule 500 mg PO QAM Qty: 90 3RF atorvastatin 20 mg tablet 20 mg PO QAM Qty: 90 3RF empagliflozin 25 mg tablet 12.5 mg PO DAILY Qty: 30 3RF sodium bicarbonate 650 mg tablet 650 mg PO DAILY Qty: 30 6RF Lokelma 10 gram powder in packet 10 g PO UD Qty: 11 2RF Rx Instructions: oncea week amlodipine 5 mg tablet 2.5 mg PO BID lisinopril 10 mg tablet 20 mg PO DAILY Qty: 60 3RF hydralazine 50 mg tablet 100 mg PO BID Qty: 120 3RF fluticasone propionate 50 mcg/actuation [place],Suspension 1 spray INTRANASAL DAILY PRN (Reason: Congestion) Rx Instructions: administer into each nostril Discharge Orders: Discharge Order (Routine); Ordered 11/21/24 Ordered By: Wilbur Lin Discharge Order- CHF (Routine); Ordered 11/21/24 Ordered By: Wilbur Baig/Other Patient Handouts: CKD Dc, Pacemaker Implant Dc Admission Data Admit Date/Time: 11/17/24 16:54 Attending Provider: Wilbur Lin Admit Provider: Blaise Frederick Primary Care Provider: Ralph Figueroa Other Providers: Blaise Frederick; Carter Grayson Other Interventions: Discharge Summary Assessment (RN) Last Done: 11/21/24 11:28 Hospital Stay Data Consultations 11/17/24 16:21 ED Decision to Admit Stat 11/17/24 16:25 Consult Cardiology Stat Procedures Performed Operation Date: 11/20/24 08:00 Actual Procedures p Pacer with A/V Leads (Dual) - Jan Young MD s Remove Cardiac Event Recorder - Jan Young MD Diagnostic Imagining Performed 11/20/24 07:00 EP Lab Images for PACS ONCE 11/20/24 12:00 EP Lab Images for PACS ONCE Pending Results Patient Have Any Pending Studies at Discharge: No Discharge Instructions Given to Patient (Per Discharging Provider) Were seen in the hospital for a third-degree heart block detected on your loop recorder. You underwent permanent pacemaker placement with cardiology on 11/20/2024. You have not been prescribed any antibiotics. If you develop any new or worsening symptoms including fever, chills, sweats, chest pain, chest pressure, difficulty breathing, uncontrolled nausea/vomiting, rash, wheezing, passing out or nearly passing out, bleeding, black/bloody bowel movements, or other new or concerning symptoms please call your primary care physician, or call 911 for re-evaluation in the emergency department if you are very concerned. Total Time Total Time Spent Total Time Spent (In Minutes): 35 minutes. Coding Level of Care Code 47131 INP/OBS DISCH >30 MIN Diagnoses Complete heart block I44.2 DM type 2 (diabetes mellitus, type 2) E11.9 Hyperlipemia E78.5
== END 2024-11-21 12:38 | disposition home or self-care (01) | DRG 243 ==
LOC: SUATTDRO → ED 14:42 → EDINP 16:54 → SUATTDRO 16:54 → 2E 18:48 → 2W 11-20 17:03